=== PATIENT | female | born 1930 | race Caucasian/White ===

== ENCOUNTER 2017-06-01 23:26 | Inpatient (IN) | payer MEDICARE, OTHER ==
[~2017-06-01] VITALS: Ht 167.6 cm; Wt 63.3 kg
[~2017-06-01 23:26] MED LIST: AMARYL4 MG PO; ATORVASTATIN CA80 MG PO; BACTROBAN22 GM TP; CELEXA20 MG PO; CITALOPRAM HBR20 MG; CITALOPRAM HBR20 MG PO; CLOPIDOGREL75 MG PO; COUMADIN4 MG PO; DEMADEX10 MG PO; FENOFIBRATE160 MG PO; FERROUS SULFAT325 MG PO; FOLIC ACID0.4 MG PO; GLIPIZIDE10 MG PO; GLIPIZIDE5 MG PO; GLYBURIDE2.5 MG PO; HYDRALAZINE HCL25 MG PO; HYDROCODON-ACE1 EA10 PO; ISOSORBIDE DINI10 MG PO; ISOSORBIDE DINI20 MG PO; ISOSORBIDE MONO30 MG PO; KLOR-CON 1010 MEQ PO; LASIX40 MG PO; LEVOXYL125 MCG PO; LISINOPRIL20 MG PO; MAG-OXIDE400 MG PO; MAGNESIUM400 M1 PO; METOPROLOL TART50 MG PO; MIRTAZAPINE15 MG PO; MUPIROCIN15 GM TP; NITROGLYCERIN0.4 MG SL; PANTOPRAZOLE SO40 MG PO; POTASSIUM CHLO10 ME2 PO; POTASSIUM CHLO10 MEQ PO; PROTONIX40 MG PO; SERTRALINE HCL50 MG PO; SIMVASTATIN40 MG PO; TRIAMCINOLONE A15 G1 TOP; VITAMIN D-32000 UNI1 PO; WARFARIN SODIUM1 MG PO; WARFARIN SODIUM6 MG PO
[2017-06-01] MEDS ORDERED: AMLODIPINE BESYL5 MG PO (23:44)
[2017-06-01] MEDS ORDERED: METOPROLOL SUC100 MG PO (23:49)
[2017-06-01] MEDS ORDERED: TORSEMIDE20 MG PO (23:51)
--- OUTSIDE RECORDS SUMMARY | 2017-06-02 01:09 | XMS ---
Demographics + + + | Address | [address] | | | [address] | | | [place] [address] | + + + | Preferred Language | Unknown | + + + | Marital Status | Unknown | + + + | Sikhism Affiliation | Unknown | + + + | Race | Unknown | + + + | Ethnic Group | Unknown | + + + Author + + + | Author | [facility] | + + + | Organization | [facility] | + + + | Address | 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 | | | | | | | | blood loss | | | | | | +---------+ + + +--------+ + + | 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 | | | diabetes | | | | | [address] | | | mellitus | | | | | | | | with | | | | | | | | hyperglyce | | | | | | | | carmen | | | | | | +---------+ + + +--------+ + + | Problem | Murmur | 785.2 | | | Active | 345702881 | +---------+ + + +--------+ + + | Problem | CKD | N18.3 | | | Active | 989476739 | | | (chronic | | | | | | | | kidney | | | | | | | | disease), | | | | | | | | stage III | | | | | | +---------+ + + +--------+ + + | Problem | Dysthymia | F34.1 | | | Active | 56609933 | +---------+ + + +--------+ + + | Problem | 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.9 | | | Active | 011641936 | | | hypothyroi | | | | | | | | dism | | | | | | +---------+ + + +--------+ + + | Problem | Angina at | | I20.8 | | Active | 51513136 | | | rest | | | | | | +---------+ + + +--------+ + + | Problem | 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 | | Active | 57515945 | | | (arteriosc | | | | | | | | lerotic | | | | | | | | heart | | | | | | | | disease) | | | | | | +---------+ + + +--------+ + + | Problem | Chronic | | I48.2 | | Active | 903474793 | | | atrial | | | | | | | | fibrillati | | | | | | | | on | | | | | | +---------+ + + +--------+ + + | Problem | Chronic | | Z79.01 | | Active | 301589580 | | | anticoagul | | | | | | | | ation | | | | | | +---------+ + + +--------+ + + | Problem | 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 | | Active | 756608691 | | | vascular | | | | | | | | disease | | | | | | +---------+ + + +--------+ + + | Problem | Hypertensi | I11.9 | | | Active | 24635175 | | | ve | | | | | | | | arterioscl | | | | | | | | erotic | | | | | | | | cardiovasc | | | | | | | | ular | | | | | | | | disease | | | | | | +---------+ + + +--------+ + + ALLERGIES + + + + +---------+ | Substance | Reaction | Event Type | Date | Status | + + + + +---------+ | N.K.D.A. | Unknown | Non Drug | Mar, | Unknown | | | | Allergy | | | + + + + +---------+ SOCIAL HISTORY No smoking Hx information available PLAN OF CARE + +---------+ | Activity | Details | + +---------+ +---+ | | +---+ + + + | Follow Up | 1 Week Reason:null | + + + VITAL SIGNS + + + + | Height | 66 in | 2017-04-11 | + + + + | Weight | 141.8 lbs | 2017-04-11 | + + + + | BMI | 22.88 kg/m2 | 2017-04-11 | + + + + | Temperature | 97.9 degrees Fahrenheit | 2017-04-11 | + + + + | Heart Rate | 54 /min | 2017-04-11 | + + + + | Blood pressure systolic | 159 mm Hg | 2017-04-11 | + + + + | Blood pressure diastolic | 54 mm Hg | 2017-04-11 | + + + + MEDICATIONS + + + + + + + +--------+ | Medicati | Instruct | Dosage | Frequenc | Start | End Date | Duration | Status | | on | ions | | y | Date | | | | + + + + + + + +--------+ | Triamcin | External | 1 | 12h | 30 May, | | 30 days | Active | | olone | ly Twice | applicat | | 2017 | | | | | Acetonid | a day | ion to | | | | | | | e 0.1 % | | affected | | | | | | | | | area | | | | | | + + + + + + + +--------+ | Folic | Orally | 1 tablet | 24h | | | | Active | | Acid 400 | Once a | | | | | | | | MCG | day | | | | | | | + + + + + + + +--------+ | Levoxyl | Orally | 1 tablet | 24h | | | 90 days | Active | | 125 MCG | Once a | every | | | | | | | | day | morning | | | | | | | | | on an | | | | | | | | | empty | | | | | | | | | stomach | | | | | | + + + + + + + +--------+ | Atorvast | Orally | 1 tablet | | | | | Active | | atin | Once a | | | | | | | | Calcium | day qhs | | | | | | | | 80 MG | | | | | | | | + + + + + + + +--------+ | Glimepir | Orally | 1 tablet | 24h | | | | Active | | claude 4 MG | Once a | with | | | | | | | | day | breakfas | | | | | | | | | t or the | | | | | | | | | first | | | | | | | | | main | | | | | | | | | meal of | | | | | | | | | the day | | | | | | + + + + + + + +--------+ | Pantopra | Orally | 1 tablet | 24h | | | 90 days | Active | | zole | Once a | | | | | | | | Sodium | day | | | | | | | | 40 MG | | | | | | | | + + + + + + + +--------+ | Lisinopr | Orally | 1 tablet | 24h | | | | Active | | il 20 MG | Once a | | | | | | | | | day | | | | | | | + + + + + + + +--------+ | Hydrocod | Orally | 1 tablet | 6h | | | | Active | | one-Acet | every 6 | as | | | | | | | aminophe | hrs | needed | | | | | | | n 5-325 | | | | | | | | | MG | | | | | | | | + + + + + + + +--------+ | Clopidog | Orally | 1 tablet | 24h | | | | Active | | rel | Once a | | | | | | | | Bisulfat | day | | | | | | | | e 75 MG | | | | | | | | + + + + + + + +--------+ | Potassiu | orally | 1 tablet | 12h | | | 90 days | Active | | m | twice a | | | | | | | | Chloride | day | | | | | | | | 10 | | | | | | | | + + + + + + + +--------+ | Vitamin | Orally | 1 | 24h | | | | Active | | D3 2000 | Once a | capsule | | | | | | | UNIT | day | | | | | | | + + + + + + + +--------+ | Magnesiu | Orally | 1 tab(s) | 24h | | | | Active | | m 250 MG | daily | | | | | | | + + + + + + + +--------+ | Amlodipi | Orally | 1 tablet | | 13 Ryan, | | 30 | Active | | ne | Once a | | | 2017 | | day(s) | | | Besylate | day in | | | | | | | | 5 MG | PM | | | | | | | + + + + + + + +--------+ | Mirtazap | Orally | 1 tablet | 24h | | | 90 days | Active | | ine 15 | Once a | before | | | | | | | MG | day | bedtime | | | | | | | | | in the | | | | | | | | | evening | | | | | | + + + + + + + +--------+ | Ferrous | Orally | 1 tablet | 12h | | | | Active | | Sulfate | Twice a | | | | | | | | 325 (65 | day | | | | | | | | Fe) MG | | | | | | | | + + + + + + + +--------+ | Isosorbi | Orally | 1 tablet | 8h | | | | Active | | de | three | | | | | | | | Dinitrat | times a | | | | | | | | e 10 MG | day | | | | | | | + + + + + + + +--------+ | Torsemid | Orally | 1 tablet | 24h | | | | Active | | e 10 MG | Once a | | | | | | | | | day | | | | | | | + + + + + + + +--------+ | Metoprol | Orally | 1 tablet | 12h | | | | Active | | ol | Twice a | | | | | | | | Tartrate | day | | | | | | | | 50 MG | | | | | | | | + + + + + + + +--------+ | Nitrogly | | | | | | | Active | | cerin | | | | | | | | | 0.4 MG | | | | | | | | + + + + + + + +--------+ RESULTS No Results PROCEDURES + + + + + | Procedure | Date Ordered | Related Diagnosis | Body Site | + + + + + | Office Visit, Est | April 11, 2017 | | | | Pt., Level 3 | | | | + + + + + IMMUNIZATIONS No Known Immunizations"
--- OUTSIDE RECORDS SUMMARY | 2017-06-02 01:09 | XMS ---
Demographics + + + | Address | [address] | | | [address] | | | [place] [address] | + + + | Preferred Language | Unknown | + + + | Marital Status | Unknown | + + + | Cheondoism Affiliation | Unknown | + + + | Race | Unknown | + + + | Ethnic Group | Unknown | + + + Author + + + | Author | [facility] | + + + | Organization | [facility] | + + + | Address | 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 | | | Active | 123695726 | | | deficiency | | | [...] | E11.65 | | | Active | 8449913733 | | | diabetes | | | | | [address] | | | mellitus | | | | | | | | with | | | | | | | | hyperglyce | | | | | | | | carmen | | | | | | +---------+ + + +--------+ + + | Problem | Murmur | 785.2 | | | Active | 844721342 | +---------+ + + +--------+ + + | Problem | CKD | N18.3 | | | Active | 306621623 | | | (chronic | | | | | | | | kidney | | | | | | | | disease), | | | | | | | | stage III | | | | | | +---------+ + + +--------+ + + | Problem | Dysthymia | F34.1 | | | Active | 46033479 | +---------+ + + +--------+ + + | Problem | 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.9 | | | Active | 099779770 | | | hypothyroi | | | | | | | | dism | | | | | | +---------+ + + +--------+ + + | Problem | Angina at | | I20.8 | | Active | 35861732 | | | rest | | | | | | +---------+ + + +--------+ + + | Problem | 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 | | Active | 93655391 | | | (arteriosc | | | | | | | | lerotic | | | | | | | | heart | | | | | | | | disease) | | | | | | +---------+ + + +--------+ + + | Problem | Chronic | | I48.2 | | Active | 040248098 | | | atrial | | | | | | | | fibrillati | | | | | | | | on | | | | | | +---------+ + + +--------+ + + | Problem | Chronic | | Z79.01 | | Active | 126152788 | | | anticoagul | | | | | | | | ation | | | | | | +---------+ + + +--------+ + + | Problem | 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 | | Active | 743536969 | | | vascular | | | | | | | | disease | | | | | | +---------+ + + +--------+ + + | Problem | Hypertensi | I11.9 | | | Active | 75412119 | | | ve | | | | | | | | arterioscl | | | | | | | | erotic | | | | | | | | cardiovasc | | | | | | | | ular | | | | | | | | disease | | | | | | +---------+ + + +--------+ + + ALLERGIES Unknown Allergies SOCIAL HISTORY No smoking Hx information available PLAN OF CARE VITAL SIGNS MEDICATIONS Unknown Medications RESULTS No Results PROCEDURES No Known procedures IMMUNIZATIONS No Known Immunizations"
--- OUTSIDE RECORDS SUMMARY | 2017-06-02 01:09 | XMS ---
Demographics + + + | Address | [address] | | | [address] | | | [place] [address] | + + + | Preferred Language | Unknown | + + + | Marital Status | Unknown | + + + | Pentecostalism Affiliation | Unknown | + + + | Race | Unknown | + + + | Ethnic Group | Unknown | + + + Author + + + | Author | [facility] | + + + | Organization | [facility] | + + + | Address | 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 | | | Active | 131545423 | | | deficiency | | | [...] | E11.65 | | | Active | 9732537688 | | | diabetes | | | | | [address] | | | mellitus | | | | | | | | with | | | | | | | | hyperglyce | | | | | | | | carmen | | | | | | +---------+ + + +--------+ + + | Problem | Murmur | 785.2 | | | Active | 250057176 | +---------+ + + +--------+ + + | Problem | CKD | N18.3 | | | Active | 102709070 | | | (chronic | | | | | | | | kidney | | | | | | | | disease), | | | | | | | | stage III | | | | | | +---------+ + + +--------+ + + | Problem | Dysthymia | F34.1 | | | Active | 09782054 | +---------+ + + +--------+ + + | Problem | 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.9 | | | Active | 203338983 | | | hypothyroi | | | | | | | | dism | | | | | | +---------+ + + +--------+ + + | Problem | Angina at | | I20.8 | | Active | 60523651 | | | rest | | | | | | +---------+ + + +--------+ + + | Problem | 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 | | Active | 17787856 | | | (arteriosc | | | | | | | | lerotic | | | | | | | | heart | | | | | | | | disease) | | | | | | +---------+ + + +--------+ + + | Problem | Chronic | | I48.2 | | Active | 820692392 | | | atrial | | | | | | | | fibrillati | | | | | | | | on | | | | | | +---------+ + + +--------+ + + | Problem | Chronic | | Z79.01 | | Active | 343879069 | | | anticoagul | | | | | | | | ation | | | | | | +---------+ + + +--------+ + + | Problem | 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 | | Active | 514404754 | | | vascular | | | | | | | | disease | | | | | | +---------+ + + +--------+ + + | Problem | Hypertensi | I11.9 | | | Active | 52350944 | | | ve | | | [...] + + + | Follow Up | prn Reason:null | + + + VITAL SIGNS + + + + | Height | 66 in | 2017-04-18 | + + + + | Weight | 142.2 lbs | 2017-04-18 | + + + + | BMI | 22.95 kg/m2 | 2017-04-18 | + + + + | Heart Rate | 64 /min | 2017-04-18 | + + + + | Blood pressure systolic | 177 mm Hg | 2017-04-18 | + + + + | Blood pressure diastolic | 63 mm Hg | 2017-04-18 | + + + + MEDICATIONS + [...] | 1 tablet | | | | 30 | Active | | ne | Once a | | | | | day(s) | | | Besylate [...] | | | Active | | m | twice [...] + + + + + +--------+ | Colace | Orally | 1 | 24h | Mar, | 20 Apr, | 30 | Active | | 100 MG | Once a | capsule | | 2016 | 2016 | day(s) | | | | day | as | | | | | | | | | needed | | | | | | + + + + + + + +--------+ RESULTS No Results PROCEDURES + + + + + | Procedure | Date Ordered | Related Diagnosis | Body Site | + + + + + | Office Visit, Est | April 18, 2017 | | | | Pt., Level 3 | | | | + + + + + IMMUNIZATIONS No Known Immunizations"
--- NOTE | 2017-06-02 02:56 | NUR ---
DR. VILLARREAL NOTIFIED OF PT'S ELEVATED BP: 191/74. NO NEW ORDERS RECEIVED AT THIS TIME.
--- NOTE | 2017-06-02 03:17 | NUR ---
PATIENT ARRIVED VIA STRETCHER AROUND 0245. PATIENT SLID ACROSS TO HOSPITAL BED ON HER OWN. PATIENTS INTAKE ASSESMENT COMPLETED AND RECORDED. PATIENT DENIES ANY PAIN OR NAUSEA AT THIS TIME. PATIENT PLACED ON TELE #9 PATIENT HAS AN IRREGULAR HR. PATIENTS BLOOD PRESSURE WAS ALSO ELEVATED. PLACED CALL TO HOSPITALIST. NO NEW ORDERS AT THIS TIME. WILL CONTINUE TO MONITOR. PATIENT ASSISTED TO THE RESTROOM. PATIENT IS A SBA W/FWW. PATIENT TOLERATES AMBUALTION WELL AND IS STEADY ON HER FEET. PATIENT HAS EQUAL STRENGHT BILATERALLY IN ALL 4 EXT. PATIENT DOES HAVE A NOTICABLE FACIAL DROOP IN CORNER OF LEFT MOUTH. PATIENT ORIENTED TO ROOM AND FLOOR. PATIENT DENIES ANY NEEDS AT THIS TIME. CALL LIGHT IS WITHIN REACH.
--- NOTE | 2017-06-02 05:30 | NUR ---
PATIENT ARRIVED AROUND 0245. PATIENT IS ON TELE #9 AND HER RHYTHM IS IRREGULAR, HR IN THE 50'S. PATIENT IS ON A REG DIET. PATIENT IS A SBA W/FWW AND IS STEADY ON HER FEET. PATIENT IS AAO X3 AND USES CALL LIGHT APPROPRIATELY. PATIENT DOES HAVE A SLIGHT FACIAL DROOP ON THE LEFT SIDE. PATIENT DOES HAVE SLIGHT INCONTINENCE ATTEND IN PLACE.
--- NOTE | 2017-06-02 06:13 | NUR ---
PATIENT ASSISTED TO THE RESTROOM. PATIENT IS A SBA W/FWW AND IS STEADY ON HER FEET. PATIENT IS BACK IN BED RESTING AND DENIES ANY NEEDS AT THIS TIME. CALL STEWART SINGH.
--- NOTE | 2017-06-02 07:10 | NUR ---
RECIVED BEDSIDE REPORT FROM BLU PERES. PT SLEEPING, BREATHING EVEN AND UNLABORED.
--- NOTE | 2017-06-02 08:10 | NUR ---
PT UP IN CHAIR, BREAKFAST IS ORDERED. PT IS AWAKE AND ALERT. DR VILLARREAL AND MED STUDENT ROUNDED WELL. DR. VILLARREAL WILL MAKE INPATIENT.
--- NOTE | 2017-06-02 10:29 | NUR ---
ON TELE, HR DIPPED TO 47. PT HAD FALLEN ASLEEP WHEN RN CHECKED ON HER. HR WENT TO 79 WHEN AWAKE. DIPPED DOWN TO LOW-MID 50S WHEN SLEEPING.
--- NOTE | 2017-06-02 11:08 | NUR ---
PT SITTING IN CHAIR WITH DAUGHTER IN LAW BY HER SIDE. PT IS ALERT AND MOSTLY ORIENTED AND EXPRESSED GREAT CONCERN OVER WHAT SHE FELT SHE EXPERIENCED LAST NIGHT. SHE ACKNOWLEDGED A STROKE, AND SAID SHE FEELS THAT SHE DOESNOT WANT ANYTHING LIKE THAT AGAIN. PT JOKED AND SEEMED TO BE DEALING APPROPRIATELY. PT REQUESTED PRAYER, WILL FOLLOW NEEDED
--- NOTE | 2017-06-02 12:25 | NUR ---
MED REC COMPLETE WITH SAFEWAY REFILL HISTORY.
--- NOTE | 2017-06-02 13:17 | NUR ---
PT SLEEPING, HEART RATE DIPS TO 50'S WHILE SLEEPING. PT REPORTS NO HEADACHE, DIZZINESS. DENIES RETURN OF SYMPTOMS. PT ATE 80% OF LUNCH. FAMILY IN ROOM.
--- NOTE | 2017-06-02 15:41 | NUR ---
ASSISTED PT TO BATHROOM WITH FWW. PT STEADY ON HER FEET. NO LIGHTHEADEDNESS, DIZZINESS, HEADACHE, OR WEAKNESS NOTED OR REPORTED.
--- NOTE | 2017-06-02 18:47 | NUR ---
TIA SYMPTOMS RESOLVED. PT COMPLAINING OF HEADACHE IN LATE EVENING. SBA WITH FWW. VOIDING WELL, BM THIS SHIFT. SALINE LOCKED IV. PT HAS CHRONIC LEFT SIDE FACIAL DROOP. A&o X4.
--- NOTE | 2017-06-02 19:27 | NUR ---
SPOKE WITH DR GOLDEN RE: INCREASING BLOOD PRESSURE AFTER GIVING AMLODIPINE AND LISINPRIL. CURRENT BP 206/85. MD AWARE, ADVISED TO RECHECK BP IN ONE HOUR. NURSE ORDER ENTERED.
--- NOTE | 2017-06-02 21:00 | NUR ---
PT AWAKE AND VISITING WTIH HER GRANDDAUGHTER. PLEASANT AND COOPERATIVE. BP AT 2034 WAS 197/84, DR. GOLDEN NOTIFIED IN PERSON HERE AT M/S FLOOR. PT ALERT AND ORIENTATED.
--- NOTE | 2017-06-02 21:33 | EKG ---
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
--- NOTE | 2017-06-02 22:30 | NUR ---
PT WITH EYES CLOSED, RESP EVEN AND UNLABORED. TEL SHOWING H/R IN THE 50'S, AND IRREGULAR.
--- NOTE | 2017-06-02 23:45 | NUR ---
EYES CLOSED. PT RESTING. USED CALL LIGHT EARLIER AFTER HER SON CALLED. SON WANTED RN TO CONTACT HIM, WHICH WAS DONE AT 2320, SON HAD A COMPLAINT THAT DID NOT INVOLVE THIS PATIENT. THIS RN REPORTED COMPLAINT TO MULTI SPINDLE OPERATOR, PT SON TRIED TO CALL HOSPITAL TO REACH HIS MOM FOR OVER "1 HOUR AND 45 MIN" BUT NO ONE WOULD ANSWER THE PHONE AT THE SWITCHBOARD. HE FOUND THE NUMBER TO HIS MOM ROOM DIRECTLY VIA CALLER ID, AND CALLED HER DIRECTLY. HE WAS EXTREMELY UPSET BUT REASSURED HIM THAT THIS NURSE WOULD FIND OUT WHY. DID THAT AND RETURNED HIS CALL TO LET HIM KNOW WHY THE PHONE WENT UNANSWERED. HE THANKED THIS NURSE FOR CALLING HIM BACK WITH THE REASON.
--- NOTE | 2017-06-03 01:32 | NUR ---
PT WITH EYES CLOSED, RESP EVEN AND UNLABORED. TELE WITH HR AT 52, IRREGULAR.
--- NOTE | 2017-06-03 02:09 | NUR ---
PT UP TO BATHROOM AT 0200, USED CALL LIGHT. STEADY ON FEET DURING AMBULATION. STATED SHE WAS VERY HAPPY THAT HER HEADACHE WAS GONE. OFFERED AND ACCEPTED WATER. BP 190/73, WAS REPORTED TO DR. GOLDEN, WHO STATED HE WOULD REVEIW IN THE AM DURING ROUNDS.
--- NOTE | 2017-06-03 03:30 | NUR ---
PT WITH EYES CLOSED, RESP EVEN AND UNLABORED
--- NOTE | 2017-06-03 05:35 | NUR ---
PT IN BED, ON HER BACK, RESP EVEN AND UNLABORED. TELE WITH HR IN THE 60'S, IRREGULAR
--- NOTE | 2017-06-03 06:14 | NUR ---
PT SLEPT MOST OF THE NIGHT, GETTING UP TO THE BATHROOM X 1 SINCE 0200. FACIAL DROOP NOT NEW, PER HISTORY. SPEECH IS MOSTLY CLEAR, D/T HER FACIAL DROOP. AAO X3. TELE WITH HR IN THE 50-60'S, IRREGULAR. ONE PERSON TRANSFER, STEADY ON FEET.
--- NOTE | 2017-06-03 08:15 | NUR ---
PT AWAKE IN BED, ALERT AND ORIENTED. NEUROCHECK UNREMARKABLE, EXCEPT FOR OLD LEFT SIDED FACIAL DROOP. DENIES PAIN, NAUSEA OR OTHER CONCERNS AT THIS TIME. DAUGHTER AT BEDSIDE VISITING WITH PT. TELE ON, HR IRREGULAR AND 56. CALL LIGHT WITHIN REACH, CALLS APPROPRIATELY.
--- NOTE | 2017-06-03 11:24 | NUR ---
PT SHOWERED AND IS NOW SITTING UP IN CHAIR. PT ASKED FOR MORE ICE WATER
--- NOTE | 2017-06-03 11:40 | NUR ---
PT SITTING UP IN CHAIR AWAKE, VISITING WITH FAMILY. TELE ON, HR 67. NEURO CHECK UNCHANGED FROM THIS AM. PT DENIES NEEDS OR CONCERNS AT THIS TIME. CALL LIGHT WITHIN REACH.
--- NOTE | 2017-06-03 14:15 | NUR ---
PT SITTING UP IN RECLINER VISITING WITH FAMILY. DENIES NEEDS OR CONCERNS AT THIS TIME. CALL LIGHT WITHIN REACH.
--- NOTE | 2017-06-03 17:44 | NUR ---
PT CALLED FOR ASSISTANCE TO RESTROOM. SBA WITH FWW. AMB TO RECLINER. SITTING UP EATING DINNER INDEPENDENTLY. CALL LIGHT WITHIN REACH.
--- NOTE | 2017-06-03 18:47 | NUR ---
PT IS SITTING UP IN CHAIR WATHCING TV. PT DID NOT NEED ANYTHING ELSE AT THE MOMENT
--- NOTE | 2017-06-03 19:05 | NUR ---
BEDSIDE REPORT RECEIVED FROM OFFGOING NURSE. PT LYING IN BED WITH EYES CLOSED. APPEARS TO BE SLEEPING. CALL LIGHT WITHIN REACH.
--- NOTE | 2017-06-03 20:00 | NUR ---
PT ASSESSMENT COMPLETED. PT'S SON AT BEDSIDE. PT DENIES PAIN OR NAUSEA. L FACIAL DROOP PRESENT PER PT'S BASELINE. NUERO WNL. PT DENIES NEEDS AT THIS TIME. CALL LIGHT WITHIN REACH.
--- NOTE | 2017-06-03 22:45 | NUR ---
PT'S LOWER DENTURE REMOVED AND PLACED IN EFFERDENT WATER. PT DOES NOT WISH TO TAKE HER TOP DENTURE OUT AT THIS TIME. STATES "I CANNOT STAND TO HAVE IT OUT." PT DENIES OTHER NEEDS, STATES "I AM GOING TO SLEEP NOW". REINFORCED CALL LIGHT USE FOR FURTHER NEEDS, PT STATES UNDERSTANDING. CALL LIGHT WITHIN REACH.
--- NOTE | 2017-06-04 00:44 | NUR ---
pt up to use the bathroom with 1pa, tolerated well. pt assisted back to bed. denies further needs. call light within reach.
--- NOTE | 2017-06-04 02:30 | NUR ---
PT RESTING IN BED WITH EYES CLOSED. RESPIRATIONS ARE EVEN AND UNLABORED. PT APPEARS TO BE SLEEPING. CALL LIGHT WITHIN REACH.
--- NOTE | 2017-06-04 04:00 | NUR ---
ASSISTED PATIENT TO THE BATHROOM. PATIENT IS UP IN THE CHAIR. CALL LIGHT IS WITHIN REACH.
--- NOTE | 2017-06-04 05:07 | NUR ---
PT RESTED WELL THROUGHOUT THE NIGHT. NO REPORTS OF PAIN OR NAUSEA. NUERO ASSESSMENT UNCHANGED, FACIAL DROOP ON L SIDE IS BASELINE PER PT. A&OX3. TELE # 9, HR IRREGULAR. SBA WITH FWW. IV SL. UO QS.
--- NOTE | 2017-06-04 07:20 | NUR ---
REPORT RECIEVED FROM [facility]. PT AWAKE AND SITTING UP IN CHAIR AWAITING BREAKFAST.
--- NOTE | 2017-06-04 08:05 | NUR ---
PT. SITTING IN CHAIR TALKING WITH VISITORS. COMPLAINING OF PAIN ON RIGHT HEEL, PUT PILLOW UNDER LEGS. TOLERATED BREAKFAST WELL.
--- NOTE | 2017-06-04 08:17 | NUR ---
PT SITTING UP IN CHAIR EATING BREAKFAST. ADMINSTERED MORNING MEDS AND ASSESSED VITALS. PT DENIES CONCERNS. DOES REPORT SOME PAIN IN RIGHT HEEL. NO CARRANZA SHOWING ON SKIN. PLACED ON PILLOW. FAMILY IN ROOM. HOPES TO GO HOME TODAY.
--- NOTE | 2017-06-04 09:31 | NUR ---
PT. AMBULATED IN MARTINES WITH FWW, TOLERATED WELL, HR UP TO 101, NOTIFIED MD, MAY DISCHARGE TODAY.
--- NOTE | 2017-06-04 10:32 | NUR ---
PT UP TO CHAIR AFTER GOING TO RESTROOM. ASSESSED VITALS FOR NEW ORDER OF METOPOROL. REFILLED WATER. PT DENIES CONCERNS.
--- NOTE | 2017-06-04 11:19 | NUR ---
PT. AMBULATED IN MARTINES. PT. HAD NO COMPLAINTS OF SOB OR WEAKNESS. HR UP TO 102.
--- NOTE | 2017-06-04 13:00 | NUR ---
PT. UP TO BATHROOM WITH FAMILY MEMBER AT BEDSIDE. PT. DENIES PAIN AND HAS NO NEEDS AT THIS TIME.
--- NOTE | 2017-06-04 15:26 | NUR ---
SCDS APPLIED TO PATIENT AND IV LINE SALINE LOCKED. PT. HAS NO NEEDS AT THIS TIME.
--- NOTE | 2017-06-04 18:23 | NUR ---
PT. TAKEN TO BATHROOM AND WATER WAS REFILLED. NO FURTHER REQUESTS AT THIS TIME.
--- NOTE | 2017-06-04 18:39 | NUR ---
PT. SAT IN CHAIR THROUGHOUT MORNING. NO COMPLAINTS OF PAIN OR NAUSEA. VITAL SIGNS STABLE. PT.'S HR WOULD GO INTO LOW 100'S WHEN AMBULATING, BUT WAS ASYMPTOMATIC. PT. WILL HAVE ECHO TOMORROW WITH POSSIBLE DISCHARGE TOMORROW. NO ACUTE CHANGES FROM BEGINNING OF SHIFT ASSESSMENT.
--- NOTE | 2017-06-04 19:15 | NUR ---
BEDSIDE REPORT RECEIVED FROM OFFGOING RN'S. PT SITTING UP IN BED. DENIES NEEDS AT THIS TIME. CALL LIGHT WITHIN REACH.
--- NOTE | 2017-06-04 22:54 | NUR ---
PT ASSESSMENT COMPLETED. VS WNL FOR MED ADMINISTRATION. L FACIAL DROOP CONTINUES PER BASELINE. PT DENIES NUMBNESS OR TINGLING TO EXTREMITIES. REPORTS SORENESS TO HEEL, STATES THAT SHE BELIEVES IT IS FROM "NUEROPATHIES". PT UP TO USE THE BATHROOM WITH ASSEMBLER FLEXIBLE LEADS ASSITANCE AND FWW, GOWN CHANGED DUE TO BEING SOILED, PT ASSISTED BACK TO BED. TOLERATED WELL. PT RECEIVED PHONE CALL, DENIES FURTHER NEEDS. TALKING ON THE PHONE UPON EXITING THE ROOM, CALL LIGHT WITHIN REACH.
--- NOTE | 2017-06-05 00:10 | NUR ---
PT UP TO USE THE BATHROOM WITH FWW AND SBA. PT REPORTS HAVING DIFFICULT TIME SLEEPING. PILLOW PROVIDED FOR UNDER PT'S LEGS WELL SLEEPING MASK. PT APPRECIATIVE, DENIES OTHER NEEDS. CALL LIGHT IN LAP.
--- NOTE | 2017-06-05 02:47 | NUR ---
PT ASSESSMENT COMPLETE; UNCHANGED. PT DENIES PAIN OR NAUSEA. PT UP TO USE THE BATHROOM WITH FWW AND SBA. PT TOLERATED WELL. DENIES FURTHER NEEDS. CALL LIGHT WITHIN REACH.
--- NOTE | 2017-06-05 04:47 | NUR ---
PT RESTING THROUGHOUT THE NIGHT. UP AND DOWN TO BATHROOM. PT DENIES PAIN OR NAUSEA THROUGHOUT SHIFT. NO CHANGES TO NEURO ASSESSMENT, L FACIAL DROOP PER BASELINE. IV SL. SBA WITH FWW. ADA DIET. ACCUCHECKS. POSSIBLE DC TODAY.
--- NOTE | 2017-06-05 07:36 | NUR ---
RECEIVED REPORT FROM KRISTIAN HURT AT BEDSIDE TODAY. PT AWAKE. ULTRASOUND TECHS IN ROOM TO DO CAROTID US AND ECHO TODAY. TELE [address] HR 77. HOPES TO GO HOME TODAY.
--- NOTE | 2017-06-05 09:01 | NUR ---
CUSTOMER SERVICE TRAINER IN TO DO ECHOCARDIOGRAM NOW.
[2017-06-05] MEDS ORDERED: AMLODIPINE BESYL5 MG PO (09:49)
[2017-06-05] MEDS ORDERED: METOPROLOL SUCC25 MG PO (09:49)
--- NOTE | 2017-06-05 12:27 | NUR ---
PT DRESSED, WITH PCG PRESENT. SHE IS WAITING FOR DC. SHE SMILED AND WELCOMED ME IN. SHE TOLD ME SHE WOULD TRY TO BEHAVE, WITH A SMILE, AND THANKED ME FOR COMING IN.
== END 2017-06-05 12:25 | disposition home or self-care (01) | DRG 309 ==
LOC: ED 23:26 → MS 23:28 → ED 06-02 02:12 → MS 06-02 02:12
PROVIDERS: ADMIT Internal Medicine
DX: I48.2 Chronic atrial fibrillation (principal); G45.9 Transient cerebral ischemic attack, unspecified; I50.22 Chronic systolic (congestive) heart failure; K92.2 Gastrointestinal hemorrhage, unspecified; I11.0 Hypertensive heart disease with heart failure; E78.5 Hyperlipidemia, unspecified; E03.9 Hypothyroidism, unspecified; E55.9 Vitamin D deficiency, unspecified; E11.40 Type 2 diabetes mellitus with diabetic neuropathy, unspecified; I25.2 Old myocardial infarction; Z79.01 Long term (current) use of anticoagulants; Z79.84 Long term (current) use of oral hypoglycemic drugs
CPT/HCPCS: 36415; 70450; 71010; 80053; 80061; 84439; 84443; 84481; 85025; 93005; 93010; 93306; 93880

== ENCOUNTER 2017-09-20 10:15 | Inpatient (IN) | payer MEDICARE, OTHER ==
[~2017-09-20] VITALS: Ht 167.6 cm; Wt 67.0 kg
[~2017-09-20 10:15] MED LIST changes: +AMLODIPINE BESYL5 MG PO; +METOPROLOL SUC100 MG PO; +METOPROLOL SUCC25 MG PO; +TORSEMIDE20 MG PO
[2017-09-20] MEDS ORDERED: IRON325 M1 PO (10:29)
[2017-09-20] MEDS ORDERED: ISOSORBIDE DINI20 MG PO (10:30)
[2017-09-20] MEDS ORDERED: COLACE100 MG PO (10:32)
[2017-09-20] MEDS ORDERED: FOLIC ACID0.4 MG PO (10:33)
--- OUTSIDE RECORDS SUMMARY | 2017-09-20 11:24 | XMS ---
Demographics + + + | Address | [address] | | | [address] | | | [place] [address] | + + + | Preferred Language | Unknown | + + + | Marital Status | Unknown | + + + | Restorationism Affiliation | Unknown | + + + | Race | Unknown | + + + | Ethnic Group | Unknown | + + + Author + + + | Author | [facility] | + + + | Organization | [facility] | + + + | Address | 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 | | Active | 514734391 | | | hyperlipid | | | | | | | | emia | | | | | | +---------+ + + +--------+ + + | Problem | Iron | D50.0 | | | Active | 883857844 | | | deficiency | | | [...] | E11.65 | | | Active | 2870097905 | | | diabetes | | | | | [address] | | | mellitus | | | | | | | | with | | | | | | | | hyperglyce | | | | | | | | carmen | | | | | | +---------+ + + +--------+ + + | Problem | Murmur | 785.2 | | | Active | 592833689 | +---------+ + + +--------+ + + | Problem | CKD | N18.3 | | | Active | 619562572 | | | (chronic | | | | | | | | kidney | | | | | | | | disease), | | | | | | | | stage III | | | | | | +---------+ + + +--------+ + + | Problem | Dysthymia | F34.1 | | | Active | 01929483 | +---------+ + + +--------+ + + | Problem | 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.9 | | | Active | 765875787 | | | hypothyroi | | | | | | | | dism | | | | | | +---------+ + + +--------+ + + | Problem | Angina at | | I20.8 | | Active | 75016157 | | | rest | | | | | | +---------+ + + +--------+ + + | Problem | 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 | | Active | 58010420 | | | (arteriosc | | | | | | | | lerotic | | | | | | | | heart | | | | | | | | disease) | | | | | | +---------+ + + +--------+ + + | Problem | Chronic | | I48.2 | | Active | 050361864 | | | atrial | | | | | | | | fibrillati | | | | | | | | on | | | | | | +---------+ + + +--------+ + + | Problem | Chronic | | Z79.01 | | Active | 799744451 | | | anticoagul | | | | | | | | ation | | | | | | +---------+ + + +--------+ + + | Problem | 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 | | Active | 224597683 | | | vascular | | | | | | | | disease | | | | | | +---------+ + + +--------+ + + | Problem | Hypertensi | I11.9 | | | Active | 24961930 | | | ve | | | | | | | | arterioscl | | | | | | | | erotic | | | | | | | | cardiovasc | | | | | | | | ular | | | | | | | | disease | | | | | | +---------+ + + +--------+ + + ALLERGIES No Known Allergies SOCIAL HISTORY Never Assessed PLAN OF CARE + +---------+ | Activity | Details | + +---------+ +---+ | | +---+ + + + | Follow Up | prn Reason:null | + + + VITAL SIGNS + + + + | Height | 66 in | 2017-07-17 | + + + + | Weight | 145.0 lbs | 2017-07-17 | + + + + | BMI | 23.40 kg/m2 | 2017-07-17 | + + + + | Temperature | 98.3 degrees Fahrenheit | 2017-07-17 | + + + + | Heart Rate | 76 /min | 2017-07-17 | + + + + | Blood pressure systolic | 167 mm Hg | 2017-07-17 | + + + + | Blood pressure diastolic | 57 mm Hg | 2017-07-17 | + + + + MEDICATIONS + [...] | | | Active | | m 400 MG | daily | | | | [...] | | | Active | | e 20 MG | Once a | | [...] + + +--------+ RESULTS No Results PROCEDURES No Known procedures IMMUNIZATIONS No Known Immunizations MEDICAL (GENERAL) HISTORY + + + + | Type | Description | Date | + + + + | Medical History | Atrial Fibrillation on | | | | Chronic anticoagulation - | | | | pt stopped coumadin 10/2016 | | | | and electing not to go on | | | | it. 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 exercise regimen to | | | | improve LE arterial flow. | | | | angiographic evaluation if | | | | consistant exercise does | | | | not resolve her symptom. | | + + + + | Surgical History | Colonoscopy | 08/2012 | + + + + | Surgical History | EGD | 08/2012 | + + + + | Surgical History | Right femoral | 09/28/12 | | | thromboendarterectomy | | + + + + | Surgical History | Cataract surgery | 2013 | + + + + | Surgical History | starbismus surgery | 1957 | + + + + | Surgical History | Appendectomy | 1949 | + + + + | Surgical History | Hysterectomy with BSO | 1976 | + + + + | Surgical History | Mammogram | 2006 | + + + + | Hospitalization History | [facility] re: rectal bleeding | 12/01-12/03/16 | + + + + | Hospitalization History | [facility] re: chest pain | 02/21/17 | | | transfered to [facility] | | + + + + | Hospitalization History | [facility] re: chest pain | 02/21-02/23/17 | + + + + | Hospitalization History | [facility] re: chest pain | 04/08/17 | + + + + | Hospitalization History | [facility] re: facial droop | 06/02/17 | + + + +"
--- OUTSIDE RECORDS SUMMARY | 2017-09-20 11:24 | XMS ---
Demographics + + + | Address | [address] | | | [address] | | | [place] [address] | + + + | Preferred Language | Unknown | + + + | Marital Status | Unknown | + + + | Bahai Affiliation | Unknown | + + + | Race | Unknown | + + + | Ethnic Group | Unknown | + + + Author + + + | Author | [facility] | + + + | Organization | [facility] | + + + | Address | 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 | | Active | 453863789 | | | hyperlipid | | | | | | | | emia | | | | | | +---------+ + + +--------+ + + | Problem | Iron | D50.0 | | | Active | 043801360 | | | deficiency | | | [...] | E11.65 | | | Active | 5081051317 | | | diabetes | | | | | 98851 | | | mellitus | | | | | | | | with | | | | | | | | hyperglyce | | | | | | | | carmen | | | | | | +---------+ + + +--------+ + + | Problem | Murmur | 785.2 | | | Active | 235720249 | +---------+ + + +--------+ + + | Problem | CKD | N18.3 | | | Active | 547528818 | | | (chronic | | | | | | | | kidney | | | | | | | | disease), | | | | | | | | stage III | | | | | | +---------+ + + +--------+ + + | Problem | Dysthymia | F34.1 | | | Active | 61052283 | +---------+ + + +--------+ + + | Problem | 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.9 | | | Active | 620416814 | | | hypothyroi | | | | | | | | dism | | | | | | +---------+ + + +--------+ + + | Problem | Angina at | | I20.8 | | Active | 01277030 | | | rest | | | | | | +---------+ + + +--------+ + + | Problem | 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 | | Active | 49054611 | | | (arteriosc | | | | | | | | lerotic | | | | | | | | heart | | | | | | | | disease) | | | | | | +---------+ + + +--------+ + + | Problem | Chronic | | I48.2 | | Active | 378307599 | | | atrial | | | | | | | | fibrillati | | | | | | | | on | | | | | | +---------+ + + +--------+ + + | Problem | Chronic | | Z79.01 | | Active | 118030999 | | | anticoagul | | | | | | | | ation | | | | | | +---------+ + + +--------+ + + | Problem | 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 | | Active | 373721671 | | | vascular | | | | | | | | disease | | | | | | +---------+ + + +--------+ + + | Problem | Hypertensi | I11.9 | | | Active | 01535829 | | | ve | | | | | | | | arterioscl | | | | | | | | erotic | | | | | | | | cardiovasc | | | | | | | | ular | | | | | | | | disease | | | | | | +---------+ + + +--------+ + + ALLERGIES No Information SOCIAL HISTORY Never Assessed PLAN OF CARE VITAL SIGNS MEDICATIONS + + + + +--------+ + +--------+ | Medicati | Instruct | Dosage | Frequenc | Start | End Date | Duration | Status | | on | ions | | y | Date | | | | + + + + +--------+ + +--------+ | Clopidog | Orally | 1 tablet | 24h | | | 90 days | Active | | rel | Once a | | | | | | | | Bisulfat | day | | | | | | | | e 75 MG | | | | | | | | + + + + +--------+ + +--------+ RESULTS No Results PROCEDURES No [...] femoral arterial | | | | thrombosis 1996(L) 2011 | | + + + + | Medical History | | | + + + + | Medical History | Claudication - 01/25/17 | | | | [facility] | | | | surgeon: [...] | 02/21/17 | | | transfered to [facility] | | + + + + | Hospitalization History | [facility] re: chest pain | 02/21-02/23/17 | + + + + | Hospitalization History | [facility] re: chest pain | 04/08/17 | + + + + | Hospitalization History | [facility] re: facial droop | 06/02/17 | + + + +"
--- OUTSIDE RECORDS SUMMARY | 2017-09-20 11:24 | XMS ---
Demographics + + + | Address | [address] | | | [address] | | | [place] [address] | + + + | Preferred Language | Unknown | + + + | Marital Status | Unknown | + + + | Worship Affiliation | Unknown | + + + | Race | Unknown | + + + | Ethnic Group | Unknown | + + + Author + + + | Author | [facility] | + + + | Organization | [facility] | + + + | Address | 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 | | Active | 216159977 | | | hyperlipid | | | | | | | | emia | | | | | | +---------+ + + +--------+ + + | Problem | Iron | D50.0 | | | Active | 201745248 | | | deficiency | | | [...] | E11.65 | | | Active | 8862827820 | | | diabetes | | | | | [address] | | | mellitus | | | | | | | | with | | | | | | | | hyperglyce | | | | | | | | carmen | | | | | | +---------+ + + +--------+ + + | Problem | Murmur | 785.2 | | | Active | 347325053 | +---------+ + + +--------+ + + | Problem | CKD | N18.3 | | | Active | 011792247 | | | (chronic | | | | | | | | kidney | | | | | | | | disease), | | | | | | | | stage III | | | | | | +---------+ + + +--------+ + + | Problem | Dysthymia | F34.1 | | | Active | 72188376 | +---------+ + + +--------+ + + | Problem | 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.9 | | | Active | 710126992 | | | hypothyroi | | | | | | | | dism | | | | | | +---------+ + + +--------+ + + | Problem | Angina at | | I20.8 | | Active | 90369756 | | | rest | | | | | | +---------+ + + +--------+ + + | Problem | 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 | | Active | 35409357 | | | (arteriosc | | | | | | | | lerotic | | | | | | | | heart | | | | | | | | disease) | | | | | | +---------+ + + +--------+ + + | Problem | Chronic | | I48.2 | | Active | 773472556 | | | atrial | | | | | | | | fibrillati | | | | | | | | on | | | | | | +---------+ + + +--------+ + + | Problem | Chronic | | Z79.01 | | Active | 548576817 | | | anticoagul | | | | | | | | ation | | | | | | +---------+ + + +--------+ + + | Problem | 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 | | Active | 869809143 | | | vascular | | | | | | | | disease | | | | | | +---------+ + + +--------+ + + | Problem | Hypertensi | I11.9 | | | Active | 47551029 | | | ve | | | [...] N.K.D.A. | Unknown | Non Drug | May, | Unknown | | | | Allergy | | | + + + + +---------+ SOCIAL HISTORY No smoking Hx information available PLAN OF CARE + +---------+ | Activity | Details | + +---------+ +---+ | | +---+ + + + | Follow Up | 4 Months Reason:null | + + + VITAL SIGNS + + + + | Height | 66 in | 2017-06-12 | + + + + | Weight | 140.9 lbs | 2017-06-12 | + + + + | BMI | 22.74 kg/m2 | 2017-06-12 | + + + + | Temperature | 97.8 degrees Fahrenheit | 2017-06-12 | + + + + | Heart Rate | 69 /min | 2017-06-12 | + + + + | Blood pressure systolic | 149 mm Hg | 2017-06-12 | + + + + | Blood pressure diastolic | 63 mm Hg | 2017-06-12 | + + + + MEDICATIONS + + + + +--------+ + +--------+ | Medicati | Instruct | Dosage | Frequenc | Start | End Date | Duration | Status | | on | ions | | y | Date | | | | + + + + +--------+ + +--------+ | Magnesiu | Orally | 1 tab(s) | 24h | | | | Active | | m 250 MG | daily | | | | | | | + + + + +--------+ + +--------+ | Hydrocod | Orally | [...] + + + +--------+ + +--------+ | Glimepir | Orally | [...] + + + +--------+ + +--------+ | Vitamin | Orally | 1 | 24h | | | | Active | | D3 2000 | Once a | capsule | | | | | | | UNIT | day | | | | | | | + + + + +--------+ + +--------+ | Mirtazap | Orally | [...] + + + +--------+ + +--------+ | Torsemid | Orally | 1 tablet | 24h | | | | Active | | e 20 MG | Once a | | | | | | | | | day | | | | | | | + + + + +--------+ + +--------+ | Lisinopr | Orally | [...] + + + +--------+ + +--------+ | Folic | Orally | 1 tablet | 24h | | | | Active | | Acid 400 | Once a | | | | | | | | MCG | day | | | | | | | + + + + +--------+ + +--------+ | Nitrogly | | | | | | | Active | | cerin | | | | | | | | | 0.4 MG | | | | | | | | + + + + +--------+ + +--------+ | Pantopra | Orally | 1 tablet | 24h | | | 90 days | Active | | zole | Once a | | | | | | | | Sodium | day | | | | | | | | 40 MG | | | | | | | | + + + + +--------+ + +--------+ | Amlodipi | Orally | 1 tablet | | | | 30 | Active | | ne | Once a | | | | | day(s) | | | Besylate | day in | | | | | | | | 5 MG | PM | | | | | | | + + + + +--------+ + +--------+ | Atorvast | Orally | 1 tablet | | | | | Active | | atin | Once a | | | | | | | | Calcium | day qhs | | | | | | | | 80 MG | | | | | | | | + + + + +--------+ + +--------+ | Levoxyl | Orally | [...] + + + +--------+ + +--------+ | Metoprol | Orally | 1 tablet | 24h | | | | Active | | ol | Once a | | | | | | | | Succinat | day | | | | | | | | e ER 25 | | | | | | | | | MG | | | | | | | | + + + + +--------+ + +--------+ | Ferrous | Orally | 1 tablet | 12h | | | | Active | | Sulfate | Twice a | | | | | | | | 325 (65 | day | | | | | | | | Fe) MG | | | | | | | | + + + + +--------+ + +--------+ | Potassiu | orally | 1 tablet | 12h | | | | Active | | m | twice a | | | | | | | | Chloride | day | | | | | | | | 10 | | | | | | | | + + + + +--------+ + +--------+ RESULTS No Results PROCEDURES + + + + + | Procedure | Date Ordered | Related Diagnosis | Body Site | + + + + + | Moderate | Jun 12, 2017 | | | + + + + + IMMUNIZATIONS No Known Immunizations"
--- OUTSIDE RECORDS SUMMARY | 2017-09-20 11:24 | XMS ---
Demographics + + + | Address | [address] | | | [address] | | | [place] [address] | + + + | Preferred Language | Unknown | + + + | Marital Status | Unknown | + + + | Yazdanism Affiliation | Unknown | + + + | Race | Unknown | + + + | Ethnic Group | Unknown | + + + Author + + + | Author | [facility] | + + + | Organization | [facility] | + + + | Address | 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 | | Active | 316737885 | | | hyperlipid | | | | | | | | emia | | | | | | +---------+ + + +--------+ + + | Problem | Iron | D50.0 | | | Active | 192117470 | | | deficiency | | | [...] | E11.65 | | | Active | 5749249999 | | | diabetes | | | | | [address] | | | mellitus | | | | | | | | with | | | | | | | | hyperglyce | | | | | | | | carmen | | | | | | +---------+ + + +--------+ + + | Problem | Murmur | 785.2 | | | Active | 775624810 | +---------+ + + +--------+ + + | Problem | CKD | N18.3 | | | Active | 778885327 | | | (chronic | | | | | | | | kidney | | | | | | | | disease), | | | | | | | | stage III | | | | | | +---------+ + + +--------+ + + | Problem | Dysthymia | F34.1 | | | Active | 28096338 | +---------+ + + +--------+ + + | Problem | 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.9 | | | Active | 852309606 | | | hypothyroi | | | | | | | | dism | | | | | | +---------+ + + +--------+ + + | Problem | Angina at | | I20.8 | | Active | 89529064 | | | rest | | | | | | +---------+ + + +--------+ + + | Problem | 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 | | Active | 01584919 | | | (arteriosc | | | | | | | | lerotic | | | | | | | | heart | | | | | | | | disease) | | | | | | +---------+ + + +--------+ + + | Problem | Chronic | | I48.2 | | Active | 569249732 | | | atrial | | | | | | | | fibrillati | | | | | | | | on | | | | | | +---------+ + + +--------+ + + | Problem | Chronic | | Z79.01 | | Active | 340407433 | | | anticoagul | | | | | | | | ation | | | | | | +---------+ + + +--------+ + + | Problem | 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 | | Active | 720212358 | | | vascular | | | | | | | | disease | | | | | | +---------+ + + +--------+ + + | Problem | Hypertensi | I11.9 | | | Active | 65372628 | | | ve | | | [...]
--- OUTSIDE RECORDS SUMMARY | 2017-09-20 11:24 | XMS ---
Demographics + + + | Address | [address] | | | [address] | | | [place] [address] | + + + | Preferred Language | Unknown | + + + | Marital Status | Unknown | + + + | Episcopalian Affiliation | Unknown | + + + | Race | Unknown | + + + | Ethnic Group | Unknown | + + + Author + + + | Author | [facility] | + + + | Organization | [facility] | + + + | Address | [address] | | | [place] [address] | + + + | Phone | | + + + Care Team Providers + + + + | Care Surface Mount Technology Operator Name | Role | Phone | + + + + Unavailable | Unavailable | + + + + PROBLEMS +---------+ + + +--------+ + + | Type | Condition | ICD9-CM | CEK46-JE | Onset | Condition | SNOMED | | | | Code | Code | Dates | Status | Code | +---------+ + + +--------+ + + | Problem | 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 | | Active | 547940269 | | | hyperlipid | | | | | | | | emia | | | | | | +---------+ + + +--------+ + + | Problem | Iron | D50.0 | | | Active | 844871466 | | | deficiency | | | [...] | E11.65 | | | Active | 1924218055 | | | diabetes | | | | | 447[address] | | | mellitus | | | | | | | | with | | | | | | | | hyperglyce | | | | | | | | carmen | | | | | | +---------+ + + +--------+ + + | Problem | Murmur | 785.2 | | | Active | 717559473 | +---------+ + + +--------+ + + | Problem | CKD | N18.3 | | | Active | 319234492 | | | (chronic | | | | | | | | kidney | | | | | | | | disease), | | | | | | | | stage III | | | | | | +---------+ + + +--------+ + + | Problem | Dysthymia | F34.1 | | | Active | 02971644 | +---------+ + + +--------+ + + | Problem | 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.9 | | | Active | 870073328 | | | hypothyroi | | | | | | | | dism | | | | | | +---------+ + + +--------+ + + | Problem | Angina at | | I20.8 | | Active | 67860670 | | | rest | | | | | | +---------+ + + +--------+ + + | Problem | 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 | | Active | 61420858 | | | (arteriosc | | | | | | | | lerotic | | | | | | | | heart | | | | | | | | disease) | | | | | | +---------+ + + +--------+ + + | Problem | Chronic | | I48.2 | | Active | 695131170 | | | atrial | | | | | | | | fibrillati | | | | | | | | on | | | | | | +---------+ + + +--------+ + + | Problem | Chronic | | Z79.01 | | Active | 271464951 | | | anticoagul | | | | | | | | ation | | | | | | +---------+ + + +--------+ + + | Problem | 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 | | Active | 423858160 | | | vascular | | | | | | | | disease | | | | | | +---------+ + + +--------+ + + | Problem | Hypertensi | I11.9 | | | Active | 26896442 | | | ve | | | [...] Amlodipi | Orally | 1 tablet | 24h | | | 90 days | Active | | ne | Once a | | | | | | | | Besylate | day | | | | | | | | 5 MG | | | | | | [...] | 02/21/17 | | | transfered to [facility] | | + + + + | Hospitalization History | [facility] re: chest pain | 02/21-02/23/17 | + + + + | Hospitalization History | [facility] re: chest pain | 04/08/17 | + + + + | Hospitalization History | [facility] re: facial droop | 06/02/17 | + + + +"
--- OUTSIDE RECORDS SUMMARY | 2017-09-20 11:24 | XMS ---
Demographics + + + | Address | [address] | | | [address] | | | [place] [address] | + + + | Preferred Language | Unknown | + + + | Marital Status | Unknown | + + + | Catholic Affiliation | Unknown | + + + | Race | Unknown | + + + | Ethnic Group | Unknown | + + + Author + + + | Author | [facility] | + + + | Organization | [facility] | + + + | Address | 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 | | | Active | [id number] | | | deficiency | | | [...] | E11.65 | | | Active | [id number] | | | diabetes | | | | | [address] | | | mellitus | | | | | | | | with | | | | | | | | hyperglyce | | | | | | | | carmen | | | | | | +---------+ + + +--------+ + + | Problem | Murmur | 785.2 | | | Active | [id number] | +---------+ + + +--------+ + + | Problem | CKD | N18.3 | | | Active | 877300185 | | | (chronic | | | | | | | | kidney | | | | | | | | disease), | | | | | | | | stage III | | | | | | +---------+ + + +--------+ + + | Problem | Dysthymia | F34.1 | | | Active | [id number] | +---------+ + + +--------+ + + | Problem | 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.9 | | | Active | 209931251 | | | hypothyroi | | | | | | | | dism | | | | | | +---------+ + + +--------+ + + | Problem | Angina at | | I20.8 | | Active | 35865653 | | | rest | | | | | | +---------+ + + +--------+ + + | Problem | 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 | | Active | 93045151 | | | (arteriosc | | | | | | | | lerotic | | | | | | | | heart | | | | | | | | disease) | | | | | | +---------+ + + +--------+ + + | Problem | Chronic | | I48.2 | | Active | 419653331 | | | atrial | | | | | | | | fibrillati | | | | | | | | on | | | | | | +---------+ + + +--------+ + + | Problem | Chronic | | Z79.01 | | Active | 998212149 | | | anticoagul | | | | | | | | ation | | | | | | +---------+ + + +--------+ + + | Problem | 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 | | Active | 717821241 | | | vascular | | | | | | | | disease | | | | | | +---------+ + + +--------+ + + | Problem | Hypertensi | I11.9 | | | Active | 24468671 | | | ve | | | [...] VITAL SIGNS MEDICATIONS + + + + + + + +--------+ | Medicati | Instruct | Dosage | Frequenc | Start | End Date | Duration | Status | | on | ions | | y | Date | | | | + + + + + + + +--------+ | Triamcin | External | 1 | | 30 February, | | 30 days | Active | | olone | ly Twice | applicat | | 2016 | | | | | Acetonid | a day | ion to | | | | | | | e 0.1 % | prn | affected | | | | | [...] | 02/21/17 | | | transfered to [facility] | | + + + + | Hospitalization History | [facility] re: chest pain | 02/21-02/23/17 | + + + + | Hospitalization History | [facility] re: chest pain | 04/08/17 | + + + + | Hospitalization History | [facility] re: facial droop | 06/02/17 | + + + +"
--- NOTE | 2017-09-20 22:20 | EKG ---
[facility] [address] [facility] [place] [address] Signed Atrial fibrillation Rightward axis Septal infarct (cited on or before 11-AUG-2016) Marked ST abnormality, possible lateral subendocardial injury Abnormal ECG When compared with ECG of 02-JUN-2017 00:08, Serial changes of Septal infarct present Confirmed by HUBER VILLARREAL MD ([id number]) on 09/20/2017 10:20:07 PM Electronically Signed By: HUBER VILLARREAL MD 09/20/17 2220 PATIENT NAME: CORY NIXON Electrocardiogram DATE OF : [birth year] PHYSICIAN: HUBER VILLARREAL MD REPORT #: [id number] REPORT IS CONFIDENTIAL AND NOT TO BE RELEASED WITHOUT AUTHORIZATION
--- NOTE | 2017-09-20 22:20 | EKG ---
[facility] [address] [facility] [place] [address] Signed Atrial fibrillation Incomplete left bundle branch block ST depression, consider subendocardial injury Nonspecific T wave abnormality Abnormal ECG When compared with ECG of 20-SEP-2017 10:20, (Unconfirmed) No significant change was found Confirmed by HUBER VILLARREAL MD ([id number]) on 09/20/2017 10:20:24 PM Electronically Signed By: HUBER VILLARREAL MD 09/20/17 2220 PATIENT NAME: CORY NIXON Electrocardiogram DATE OF : [birth year] PHYSICIAN: HUBER VILLARREAL MD REPORT #: [id number] REPORT IS CONFIDENTIAL AND NOT TO BE RELEASED WITHOUT AUTHORIZATION
--- NOTE | 2017-09-22 07:45 | EKG ---
[facility] [address] [facility] [place] [address] Signed Atrial fibrillation Inferior infarct , age undetermined Marked ST abnormality, possible lateral subendocardial injury Abnormal ECG When compared with ECG of 20-SEP-2017 11:55, ST now depressed in Anterior leads Nonspecific T wave abnormality no longer evident in Inferior leads T wave inversion more evident in Lateral leads Confirmed by HUBER VILLARREAL MD ([id number]) on 09/22/2017 7:45:41 AM Electronically Signed By: HUBER VILLARREAL MD 09/22/17 0745 PATIENT NAME: CORY NIXON Electrocardiogram DATE OF : [birth year] PHYSICIAN: HUBER VILLARREAL MD REPORT #: [id number] REPORT IS CONFIDENTIAL AND NOT TO BE RELEASED WITHOUT AUTHORIZATION
== END 2017-09-22 13:20 | disposition home or self-care (01) | DRG 281 ==
LOC: ED 10:15 → MS 13:20
PROVIDERS: ADMIT Internal Medicine
PROC: 30233N1 Transfusion of Nonautologous Red Blood Cells into Peripheral Vein, Percutaneous Approach (ICD-10-PCS; principal; 2017-09-21)
DX: I21.4 Non-ST elevation (NSTEMI) myocardial infarction (principal); E87.1 Hypo-osmolality and hyponatremia; N17.9 Acute kidney failure, unspecified; I10 Essential (primary) hypertension; E11.9 Type 2 diabetes mellitus without complications; E03.9 Hypothyroidism, unspecified; I50.9 Heart failure, unspecified; I25.2 Old myocardial infarction; Z86.718 Personal history of other venous thrombosis and embolism; Z79.4 Long term (current) use of insulin; E55.9 Vitamin D deficiency, unspecified
CPT/HCPCS: 36415; 36430; 71010; 80048; 80053; 83880; 84300; 84484; 85025; 85379; 85610; 86850; 86870; 86900; 86901; 86902; 86922; 93005; 93010; J7030; P9016

== ENCOUNTER 2017-09-25 08:37 | Emergency (ER) | payer MEDICARE, OTHER ==
[~2017-09-25] VITALS: Ht 167.6 cm; Wt 67.0 kg
[~2017-09-25 08:37] MED LIST changes: +COLACE100 MG PO; +IRON325 M1 PO
== END 2017-09-25 10:17 | disposition home or self-care (01) ==
LOC: ED 08:37
DX: K62.5 Hemorrhage of anus and rectum (principal); D64.9 Anemia, unspecified; I11.0 Hypertensive heart disease with heart failure; I50.9 Heart failure, unspecified; E11.9 Type 2 diabetes mellitus without complications; I48.91 Unspecified atrial fibrillation; E11.40 Type 2 diabetes mellitus with diabetic neuropathy, unspecified; E03.9 Hypothyroidism, unspecified; Z90.722 Acquired absence of ovaries, bilateral; Z90.710 Acquired absence of both cervix and uterus; Z79.899 Other long term (current) drug therapy; Z79.84 Long term (current) use of oral hypoglycemic drugs
CPT/HCPCS: 36415; 85025; 99284

== ENCOUNTER 2017-10-01 08:56 | Inpatient (IN) | payer MEDICARE, OTHER ==
[~2017-10-01] VITALS: Ht 167.6 cm; Wt 66.5 kg
[2017-10-01] MEDS ORDERED: METOPROLOL SUCC50 MG PO (11:19)
--- NOTE | 2017-10-01 12:26 | NUR ---
PT ARRIVED TO ROOM 128 VIA STRETCHER FROM ER. PT TRANSFERRED SELF TO BED, HOB ELEVATED. VITAL SIGNS COMPLETED AND LR BOLUS 500 MLS STARTED. PT RESTING WITH EYES CLOSED. STATES CHEST DISCOMFORT ABOUT "1 OR 2/10". ALSO STATES "I FEEL SO MUCH BETTER".
[2017-10-01] MEDS ORDERED: ISOSORBIDE DINI20 MG PO (12:40)
[2017-10-01] MEDS ORDERED: ZESTRIL20 MG PO (12:41)
[2017-10-01] MEDS ORDERED: AMARYL4 MG PO (12:42)
[2017-10-01] MEDS ORDERED: METOPROLOL TART25 MG PO (12:45)
--- NOTE | 2017-10-01 13:00 | NUR ---
Medications reconciled using pharmacy records, group care worker notes, PCP note and medication vials. Granddaughter also shared information
--- NOTE | 2017-10-01 16:43 | NUR ---
ASSESSMENT COMPLETED, DENIES CHEST PAIN AT THIS TIME, STATES THE CHEST PAIN WENT AWAY EARLIER. PT VISITING WITH FAMILY MEMEBERS. UP TO BSC WITH ONE PERSON ASSIST VOIDING 275 MLS CLEAR YELLOW URINE. 2ND UNIT PRBC RUNNING.
--- NOTE | 2017-10-01 18:27 | NUR ---
BOWEL PREP STARTED.
--- NOTE | 2017-10-01 19:30 | NUR ---
PT AWAKE IN BED TALKING WITH FAMILY IN ROOM, REPORT RECEIVED FROM YSABEL HURT, PT DENIES NEEDS OR PAIN AT THIS TIME, ALERT AND ORIENTED AND WILL CALL WITH ANY NEEDS.
--- NOTE | 2017-10-01 20:54 | NUR ---
UP TO BSC TO HAVE 500ML STOOL/URINE MIX, STOOL WAS VERY DARK BLACK MOSTLY LIQUID. HR REMAINED IN 80'S WHILE UP THEN BACK TO BED WITH CALL LIGHT IN HAND. ALMOST DONE DRINKING BOWEL PREP.
--- NOTE | 2017-10-01 21:57 | NUR ---
UP TO BSC FOR LIQUID BLACK STOOL/URINE MIX. BACK TO BED, NO REQUESTS, CALL LIGHT IN HAND
--- NOTE | 2017-10-01 22:45 | NUR ---
UP TO BSC THEN BACK TO BED, CALL LIGHT IN HAND. ASSISTED WITH HS CARE, THEN LIGHTS OUT TO TRY TO SLEEP.
--- NOTE | 2017-10-02 00:37 | EKG ---
[facility] [address] [place] [address] Signed Atrial fibrillation Inferior infarct (cited on or before 21-SEP-2017) Anteroseptal infarct , age undetermined Marked ST abnormality, possible lateral subendocardial injury Abnormal ECG When compared with ECG of 21-SEP-2017 08:50, T wave inversion no longer evident in Lateral leads Confirmed by KAYLA GOLDEN MD ([id number]) on 10/02/2017 12:37:26 AM Electronically Signed By: KAYLA GOLDEN MD 10/02/17 0037 PATIENT NAME: CORY NIXON Electrocardiogram DATE OF : [birth year] PHYSICIAN: KAYLA GOLDEN MD REPORT #: [id number] REPORT IS CONFIDENTIAL AND NOT TO BE RELEASED WITHOUT AUTHORIZATION
--- NOTE | 2017-10-02 00:39 | NUR ---
ASSESSMENT DONE. UP TO BSC TO VOID AND HAVE LIQUID STOOL, BACK TO BED WITH CALL LIGHT IN HAND.
--- NOTE | 2017-10-02 02:00 | NUR ---
LOW BP'S NOTED, WILL MONITOR. PT DENIES ANY LIGHTHEADEDNESS/DIZZINESS, DENIES CHEST PAIN OR SOB. IS TIRED AND WANTS TO TRY TO SLEEP.
--- NOTE | 2017-10-02 03:27 | NUR ---
DR GOLDEN UPDATED REGARDING LOW BP'S. 1L NS BOLUS STARTED TO GIVE OVER ONE HOUR. WILL CONTINUE TO MONITOR.
--- NOTE | 2017-10-02 03:57 | NUR ---
UP TO BSC THEN BACK TO BED, STILL HAVING DARK BLACKISH RED LIQUID STOOLS.
--- NOTE | 2017-10-02 05:20 | NUR ---
LAB IN TO DRAW, PT AWAKENS EASILY
--- NOTE | 2017-10-02 06:43 | NUR ---
BLOOD SUGAR OF 62 ON AM LABS, PT GIVEN ENSURE AND ORANGE JUICE WHICH SHE QUICLY DRANK 100% OF. DENIES NEEDS AT THIS TIME, WILL TRY TO GO BACK TO SLEEP.
--- NOTE | 2017-10-02 08:17 | NUR ---
PT AWAKE AND ALERT, ASSESSMENT COMPLETED AND PT DENIES C/O AT THIS TIME. LOPRESSOR 12.5 MG GIVEN PO SIP A SIP OF WATER. PT SIGNED CONSENT FOR COLONOSCOPY. RESTING WITH HOB ELEVATED AND ALSO VISITING WITH CAREGIVER.
--- NOTE | 2017-10-02 09:56 | NUR ---
PT UP TO BSC VOIDING 250 MLS CLEAR YELLOW URINE. RETURNED TO BED WITH 1 PERSON ASSIST. PT NOW TALKING ON PHONE.
--- NOTE | 2017-10-02 10:26 | NUR ---
DR. GOLDEN IN TO ASSESS PT.
--- NOTE | 2017-10-02 11:55 | NUR ---
ASSESSMENT COMPLETED, DENIES C/O. UP TO BSC WITH ONE PERSON ASSIST, VOIDED 400 MLS CLEAR YELLOW URINE, RETURNED TO BED WITH HOB ELEVATED. VITAL SIGNS COMPLETED.
--- NOTE | 2017-10-02 12:54 | NUR ---
PT UP TO BSC WITH ASSIST AND HAD LIQ BM PINK IN COLOR. RETURNED TO BED WITH ASSIST.
--- NOTE | 2017-10-02 15:33 | NUR ---
TO ENDO ROOM [facility]IA [facility] FOR COLONOSCOPY AND POSSIBLE EGD.
--- NOTE | 2017-10-02 17:05 | NUR ---
10/02/17 1705 Eva Acevedo 1629 PT CONFUSED AND TRYING TO GET OUT OF BED. RESP EVEN AND UNLARBORED. [address] AND TIME. PT ASKING TO USE RESTROOM. 1650 PT ON BEDPAN, DARK RED WATERY STOOL PASSED, 100ML. 1700 PT PASSING LARGE AMOUNTS OF AIR. 1704 PT ASLEEP.
--- NOTE | 2017-10-02 18:05 | NUR ---
PT TO FLOOR, TO ROOM 109 VIA STRECHER, ACCOMPANIED BY HILARIA IMPORT EXPORT MANAGER AT 1740. PT AWAKE, ALERT, ORIENTED X 4. GRANDDAUGHTER BERNARD WITH PT, AT BEDSIDE. PRIOR TO PT ARRIVAL TO FLOOR, RECIEVED REPORT FROM ROSEANNE CCU RN.
--- NOTE | 2017-10-02 18:28 | NUR ---
PT UP TO BATHROOM, VOIDED LARGE AMOUNT URINE, MISSED HAT. ALSO HAD SMALL AMOUNT OF CRANBERRY COLORED LIQUID STOOL. PT THEN BACK TO BED WITH FWW WITH ONE PERSON ASSIST. CURRENTLY SITTING UP IN BED, EATING CLEAR LIQUID DINNER. BG 74. NO S/S HYPOGLYCEMIA, NO C/O FEELING HYPOGLYCEMIC.
--- NOTE | 2017-10-02 18:33 | NUR ---
PT TRANSFERED TO FLOOR FROM CCU AFTER C-SCOPE AND EGD. PT ON RA, SAT 99%, LUNGS CTA. DENIES PAIN. HAD LARGE UNMEASURED URINE VOID, WITH SMALL AMOUNT OF DARK CRANBERRY COLORED LIQUID STOOL MIXED IN. PT ALERT, ORIENTED X 4. GRANDAUGHTER AT BEDSIDE. PT ON CLEAR LIQUIDS, WILL HAVE SMALL BOWEL STUDY TOMORROW. HAS D5LR INFUSING AT 100 CC/HR. UP WITH 1 PERSON ASSIST WITH FWW.
--- NOTE | 2017-10-02 19:10 | NUR ---
PT IN BED, HAS EATEN MOST OF CLEAR LIQUID DINNER. DENIES PAIN, DENIES NAUSEA.
--- NOTE | 2017-10-02 19:40 | NUR ---
RECIEVED REPORT FROM DAY SHIFT NURSE. PATIENT RESTING IN BED WITH FAMILY AT BEDSIDE. IVF INFUSING W/O DIFFICULTY. SCDS AND HEEL PROTECTORS IN PLACE. MEAL TRAY REMOVED. WATER PITCHER FILLED. PATIENT DENIES FURTHER NEEDS. CALL LIGHT IN REACH.
--- NOTE | 2017-10-02 19:51 | NUR ---
PATIENT CALLED WANTED TO USE THE TOILET. ASSISTED 1 PERSON, USING WALKER. PATIENT IS BACK IN BED.CALL LIGHT WITHIN REACH. NOTIFIED THE NURSE FOR DARK BLOOD SEEN FROM PATIENT'S VOIDINGS.
--- NOTE | 2017-10-02 20:41 | NUR ---
PATIENT'S FAMILY CALLED STATED PATIENT CAN'T GET HOLD THE NURSE STATION, CALL LIGHT DID NOT WORK. WENT TO THE ROOM AND CHECKED. CHANGED CALL LIGHT AND IT IS WORKING NOW. PATIENT ASKED FOR CHICKEN BROTH AND JELLO, GIVEN.
--- NOTE | 2017-10-02 21:50 | NUR ---
ASSISTED PT TO BATHROOM. PT VOIDED. BACK TO BED. SCDS AND HEEL PROTECTORS IN PLACE. LUNGS CLEAR, HYPERACTIVE BS. NO C/O PAIN OR NAUSEA. BLOOD SUGAR OBTIANED, ADMINISTERED SLIDING SCALE INSULIN. REFILLED WATER PITCHER. PATIENT DENIES FURTHER NEEDS. CALL LIGHT IN REACH.
--- NOTE | 2017-10-02 23:30 | NUR ---
PATIENT SLEEPING. IVF INFUSING W/O DIFFICULTY. CALL LIGHT IN REACH. BED ALARM ON.
--- NOTE | 2017-10-02 23:51 | NUR ---
PATIENT CALLED TO USE THE BATHROOM. 1 PERSON ASSIST WITH WALKER. PATIENT IS BACK IN BED. CALL LIGHT WITHIN REACH.
--- NOTE | 2017-10-03 01:45 | NUR ---
ASSISTED PATIENT TO BATHROOM. VOIDED, BACK TO BED. SCDS IN PLACE. PT C/O KNEE PAIN 04/08, TYLENOL ADMINISTERED, REPOSITIONED LEG ON PILLOW. PATIENT REFUSES TO WEAR HEEL PROTECTORS. PATIENT DENIES FURTHER NEEDS. BED ALARM ON, CALL LIGHT IN REACH.
--- NOTE | 2017-10-03 03:50 | NUR ---
PATIENT SLEEPING. SCDS IN PLACE. CALL LIGHT IN REACH.
--- NOTE | 2017-10-03 04:17 | NUR ---
PATIENT AWAKE RESTING IN BED. STATES SHE HAS BEEN HAVING A HARD TIME SLEEPING. KNEE PAIN HAS RESOLVED. PATIENT COMPLAINING THAT SHE IS HUNGRY. DELIVERED APPLE JUICE. PATIENT DENIES FURTHER NEEDS.
--- NOTE | 2017-10-03 05:34 | NUR ---
PATIENT DID NOT SLEEP WELL LAST NIGHT. 1 BM WITH SMALL CLOT NOTED IN STOOL PER CUTTER AND PASTER PRESS CLIPPINGS ASSESSMENT OF STOOL. VOIDING WELL. R KNEE PAIN LAST NIGHT, GIVEN TYLENOL WHICH WORKED WELL.
--- NOTE | 2017-10-03 07:13 | NUR ---
RECIEVED BEDSIDE REPORT FROM BLU FRAIRE. PT AROUSED TO VERBAL STIMULI, HAS D5LR INFUSING AT 100 CC/HR. FELL BACK ASLEEP DURING REPORT.
--- NOTE | 2017-10-03 07:56 | NUR ---
PT UP TO BATHROOM WITH STANDBY ASSIST USING FWW. PT VOIDED 300 CC URINE, AND HAD A MEDIUM LIQUID BROWN STOOL, NO SHERINE BLOOD OR BLACK TARRY APPEARANCE TO THE STOOL NOTED. PT DENIED NAUSEA OR PAIN. ASSISTED TO RECLINER, WHERE PT IS CURRENTLY EATING CLEAR LIQUID BREAKFAST. CALL LIGHT IN REACH, PERSONAL SUPPLIES ON TRAY TABLE OVER LAP.
--- NOTE | 2017-10-03 08:15 | NUR ---
patient up from bathroom to chair with one person assist with FWW. Bed bath done and oral care. linens changed. Fresh ice water given. no other needs at this time. call button in reach.
--- NOTE | 2017-10-03 10:08 | NUR ---
PT SITTING UP IN RECLINER. HAS PERSONAL SUPPLIES IN REACH, CALL LIGHT IN REACH. DENIED NEEDS.
--- NOTE | 2017-10-03 10:45 | NUR ---
Patient sitting up in chair. fresh ice water given. no needs at this time. call button in reach.
--- NOTE | 2017-10-03 11:04 | NUR ---
IV TO LEFT FOREARM NOT PATENT, INFILTRATED IVF THAT WERE INFUSING. D/C'D IV, ELEVATED ARM, APPLIED WARM PACK. NEW IV STARTED TO RIGHT WRIST, 22 G.
--- NOTE | 2017-10-03 11:14 | CONS ---
[facility] [address] [place], [place] [address] Signed DATE OF CONSULTATION: 10/01/2017 CONSULTING PHYSICIAN: Jaquelin Stanford MD PROBLEM: Recurrent lower gastrointestinal bleeding. HISTORY OF PRESENT ILLNESS: This 87-year-old white woman is now the patient of Dr. Chua (previously Dr. Maldonado). She was seen in the emergency room with angina and recurrent bleeding per rectum. She had no associated hematemesis. She has substernal pain this morning and known history of angina and considered to have a recent ST elevation myocardial infarction, admitted a week ago. She has also had chronic anemia from chronic and episodically acute gastrointestinal bleeding. The patient had previously been on Coumadin for DVT and based on prior recurrent deep venous thromboses, was taken off that, but ultimately was put on aspirin and Plavix. The patient was given nitroglycerin early in the morning related to her angina, but without relief and on that basis was taken to the hospital. Pre-hospital EKG showed a left bundle branch block and ST-segment depressions in the lateral leads. An additional EKG showed no ST elevations in any leads. The patient has had 2 units of blood transfused since her hospitalization and observation in the intensive care unit under the direction of Dr. Mari. Her hemoglobin has increased from an admission 6.8-9.3, corresponding to a hematocrit 27.1. To my knowledge, she has had no further bleeding since hospitalization. Her platelet count is normal at 220,000. Her situation currently is that of having no angina. A MiraLAX based bowel prep was initiated earlier by Dr. Mari at the time of our conversation regarding consultation. The patient does not know of any prior evaluation that included a PillCam device. Review of her record, which understandably is rather extensive confirms upper endoscopy and colonoscopy performed by Dr. Sprague on August 11, 2016. At that time, upper endoscopy showed distal gastritis, minimal right and left-sided diverticulosis, and minimal to moderate internal hemorrhoidal changes. REVIEW OF SYSTEMS: Denies any hematemesis. Has no abdominal pain. She has tolerated her bowel prep well so far (MiraLAX base prep). She has had no further rectal bleeding since admission. Denies any angina at this time. No shortness of breath. PHYSICAL EXAMINATION: GENERAL: Pleasant elderly woman, who looks alert and oriented. Her family members have gone home for the evening. Trachea is midline, I detect no carotid bruit. Electronically Signed By: JAQUELIN STANFORD MD 10/03/17 1114 PATIENT NAME: CORY NIXON CONSULTATION DATE OF : [birth year] PHYSICIAN: JAQUELIN STANFORD MD REPORT #: [id number] REPORT IS CONFIDENTIAL AND NOT TO BE RELEASED WITHOUT AUTHORIZATION [facility] [address] [place], [place] [address] Signed CHEST: Shows normal respiratory excursion. Chest is clear. HEART: Generally regular on palpation of pulse. ABDOMEN: Somewhat distended and puffed up, related possibly to bowel prep. EXTREMITIES: Showed 1+ edema. LAB STUDIES: Showed initial hematocrit of 19.5, normal Chem profile, except for elevated creatinine of 1.57, sodium of 127. Urinalysis only showing the urine osmolality, which is still pending. ASSESSMENT: She has had recurrent apparent lower gastrointestinal bleeding with endoscopic findings previously showing diverticulosis as well as internal hemorrhoidal changes. Additionally, she has had some mild gastritis. She has been on anticoagulation for deep venous thrombosis in the past and more recently on Plavix and possibly aspirin related possibly to myocardial insufficiency. She is at increased risk as regard to her heart, but certainly her heart risks are increased with anemia and ongoing bleeding. Dr. Mari has conferred with the family and the patient, and after due consideration, they do wish to have additional evaluation undertaken to assess the source of gastrointestinal bleeding. This would much dominantly include colonoscopy of course. The bleeding may be related to hemorrhoids alone or diverticular changes, it is uncertain of course. It is unlikely a lesion was missed (cancer), but that is certainly a possibility as well. Negative evaluation may prompt consideration for PillCam device (not locally available) and in any case despite her underlying comorbidities they certainly would revisit whether or not Plavix would be appropriate for her. Plain aspirin may be reasonable and certainly not Coumadin. All of these considerations are those that must take into consideration of the risks of stroke as relates to atrial fibrillation and recurrent deep venous thrombosis as relates to prior history. The risks of bleeding, infection, perforation and of course anesthetic complications related to sedation are reviewed with the patient in detail, she understands. We will look to doing this tomorrow so long as she is medically fit. She will have completed her bowel prep by then. Jaquelin Stanford MD Electronically Signed By: JAQUELIN STANFORD MD 10/03/17 1114 PATIENT NAME: CORY NIXON CONSULTATION DATE OF : [birth year] PHYSICIAN: JAQUELIN STANFORD MD REPORT #: [id number] REPORT IS CONFIDENTIAL AND NOT TO BE RELEASED WITHOUT AUTHORIZATION [facility] [address] [place], [place] [address] Signed /GERARDO /[id number] cc: DO Claude Streeter MD Andrew L Bower, MD Electronically Signed By: JAQUELIN STANFORD MD 10/03/17 1114 PATIENT NAME: CORY NIXON CONSULTATION DATE OF : [birth year] PHYSICIAN: JAQUELIN STANFORD MD REPORT #: [id number] REPORT IS CONFIDENTIAL AND NOT TO BE RELEASED WITHOUT AUTHORIZATION
--- NOTE | 2017-10-03 11:14 | OR ---
[facility] [address] [place], [place] [address] Signed DATE OF OPERATION: 10/02/2017 SURGEON: Jaquelin Stanford MD PREOPERATIVE DIAGNOSES: Recurrent GI bleeding and prior history of various anticoagulation strategies, recently Plavix. POSTOPERATIVE DIAGNOSES: 1. Normal colon to cecum. 2. Normal upper endoscopy except for chronic duodenitis. No lesion to account for bleeding. PROCEDURES: 1. Esophagogastroduodenoscopy with biopsy. 2. Total colonoscopy to cecum with lavage. ANESTHESIA: Intravenous sedation, propofol infusion, Alejandra Gibbs CRNA. INDICATION: This 87-year-old white woman has chronic atrial fibrillation and other coagulation issues and has been anticoagulated with Coumadin in the past, more recently on Plavix alone. She has had recurring GI bleeding and prior upper and lower endoscopic evaluations have been unrevealing as to a source. She is stabilized now, having been admitted yesterday with a significant amount of angina probably related to anemia with a hemoglobin yesterday of about 7. She has had transfusion to a hemoglobin of greater than 9.5. Colonoscopy and possibly upper endoscopy are requested by Dr. Mari, her managing physician. Her primary physician currently is Dr. Sebastian Chua. She understands the risks of bleeding, infection, perforation related to upper endoscopy and colonoscopy and wished to proceed. FINDINGS: Colonoscopy was well prepped. There was somewhat fresh blood within the colon and throughout it. Many attempts were made to intubate the ileum, which were unsuccessful. There was no sign of colitis or other reason for bleeding, however. Upper endoscopy showed only chronic duodenitis, no sign of blood, and no sign of lesion to account for bleeding. Electronically Signed By: JAQUELIN STANFORD MD 10/03/17 1114 PATIENT NAME: CORY NIXON OPERATIVE REPORT DATE OF : [birth year] PHYSICIAN: JAQUELIN STANFORD MD REPORT #: [id number] REPORT IS CONFIDENTIAL AND NOT TO BE RELEASED WITHOUT AUTHORIZATION [facility] [address] [place], [place] [address] Signed It is my impression the bleeding source is in the small bowel somewhere. PROCEDURE IN DETAIL: The patient was brought to the endoscopy suite, given topical Hurricaine spray hypopharyngeal anesthesia, and placed in lateral decubitus position. Intravenous sedation was induced with propofol infusion by the core analyst. A digital rectal examination was undertaken, which showed some medium reddish bloody fluid. An Olympus video colonoscope was passed in the rectum and manipulated throughout the colon, ultimately intubating the cecum itself. Photographs were taken. Some irrigation was required along the way. There was some moderately fresh blood throughout the colon, but no clots or any obvious severe hemorrhage. Many attempts were made to intubate the ileum, which was clearly identified, but it simply could not be done. The scope was withdrawn from that point and examination throughout undertaken showed no sign of abnormality, specifically no arteriovenous malformations, diverticular formation, colitis, or cancer. Retroflexed view was normal as well. The scope was removed and plan was made for upper endoscopy given the paucity of findings on colonoscopy. The bite block was placed and an Olympus video upper endoscope passed in the hypopharynx. The vocal cords were normal. Scope was advanced to the esophagus, stomach, and duodenum showing only mild chronic duodenitis of the bulbar duodenum. Biopsies were taken there and antrum as well for CORRINE and pathologic testing. Retroflexed view confirmed reasonably good flap valve. No sign of gastric varices or collar ulceration. The scope was withdrawn to the distal esophagus, which showed no abnormality based on her age. The remaining esophagus was evaluated as normal. Scope was removed, and the patient was taken to the recovery room in good condition. CONCLUDING DIAGNOSIS: No source of upper GI bleeding or colonic bleeding. We would recommend a small-bowel followthrough or perhaps a PillCam. We would recommend against any anticoagulation at this point going forward given her advanced age and numerous recurrent symptomatic episodes of GI bleeding with anemia. MD JOHN Newton/CORINNE Electronically Signed By: JAQUELIN STANFORD MD 10/03/17 1114 PATIENT NAME: CORY NIXON OPERATIVE REPORT DATE OF : [birth year] PHYSICIAN: JAQUELIN STANFORD MD REPORT #: [id number] REPORT IS CONFIDENTIAL AND NOT TO BE RELEASED WITHOUT AUTHORIZATION [facility] [address] [place] [id number] Signed /[id number] cc: DO Claude Streeter MD Electronically Signed By: JAQUELIN STANFORD MD 10/03/17 1114 PATIENT NAME: CORY NIXON OPERATIVE REPORT DATE OF : [birth year] PHYSICIAN: JAQUELIN STANFORD MD REPORT #: [id number] REPORT IS CONFIDENTIAL AND NOT TO BE RELEASED WITHOUT AUTHORIZATION
--- NOTE | 2017-10-03 15:50 | NUR ---
PT BACK FROM SMALL BOWEL FOLLOW THROUGH IN DIAGNOSTIC IMAGING. PT IS SITTING UP IN RECLINER. PROVIDED WITH WARM BLANKETS PER PT REQUEST. PT STATED THAT SHE WILL STAY UP IN RECLINER FOR DINNER. ASKED IF SHE COULD ADVANCE TO HER REGULAR DIET. RELAYED PT'S REQUEST TO DR. STANFORD. RECIEVED VERBAL ORDER FOR ADA DIET, SECONDARY DIET OF CARDIAC, WITH NO DIET RESTRICTION. UNABLE TO PLACE DIET ORDER WITHOUT CALORIE AMOUNT, SO PLACED ADA 2000 CALORIE DIET WITH CARDIAC SECONDARY DIET ORDER.
--- NOTE | 2017-10-03 16:00 | NUR ---
PATIENT SITTING UP IN CHAIR. CALL BUTTON IN REACH. RN IN ROOM. NO NEEDS AT THIS TIME.
--- NOTE | 2017-10-03 16:05 | NUR ---
PT SITTING UP IN RECLINER. GAVE SCHEDULED MEDICATIONS. PT DENIED NEEDS.
--- NOTE | 2017-10-03 18:03 | NUR ---
PATIENT RESTING IN BED WATCHING TV. FRESH ICE WATER GIVEN CALL BUTTON IN REACH. NO OTHER NEEDS AT THIS TIME.
--- NOTE | 2017-10-03 18:42 | NUR ---
PT DOING WELL. ADVANCED TO ADA/CARDIAC DIET. TOLERATED WELL. HAD 3 LIQUID STOOLS, NO SIGNS OF BLOOD IN STOOL. HAD SMALL BOWEL FOLLOW THROUGH, NOTHING NOTABLE FOUND. SALINE LOCKED. UP WITH FWW WITH STANDBY ASSIST.
--- NOTE | 2017-10-03 18:55 | NUR ---
RECEIVED REPORT FROM RN. PATIENT IS RESTING COMFORTABLY IN BED, BREATHING IS EVEN AND UNLABORED. DENIES NEEDS AT THIS TIME. CALL LIGHT WITHIN REACH.
--- NOTE | 2017-10-03 20:45 | NUR ---
PATIENT RESTING COMFORTABLY IN BED, BREATHING IS EVEN AND UNLABORED. ASSISTED TO BATHROOM WITH 1PA/FWW/NON-SLIP SOCKS. NO BLOODY STOOL NOTED. PATIENT DENIES FURTHER NEEDS AT THIS TIME. CALL LIGHT WITHIN REACH, ASSESSMENT DONE.
--- NOTE | 2017-10-03 23:15 | NUR ---
ASSISTED PATIENT TO BATHROOM WITH SBA/FWW. DENIES FURTHER NEEDS. CALL LIGHT WITHIN REACH.
--- NOTE | 2017-10-04 03:59 | NUR ---
PATIENT RESTING COMFORTABLY IN BED, BREATHING IS EVEN AND UNLABORED. DENIES NEEDS AT THIS TIME. ASSESSMENT DONE, CALL LIGHT WITHIN REACH.
--- NOTE | 2017-10-04 07:10 | NUR ---
BEDSIDE REPORT RECIEVED FROM BLU MENDOZA. PT AWAKE, ALERT, DENIED NEEDS.
--- NOTE | 2017-10-04 07:32 | NUR ---
GOT PT SET UP FOR BREAKFAST, TOOK HER BLOOD SUGAR IT WAS 112, BRUSHED HER DENTURES, AND GAVE HER A WARM WASHCLOTH TO WASH HER FACE, AND FRESH ICE WATER CALL LIGHT IN PLACE
--- NOTE | 2017-10-04 08:07 | NUR ---
DR. VILLARREAL IN TO SEE PT. DISCUSSING PLAN OF CARE. PT ATE 75% OF BREAKFAST.
--- NOTE | 2017-10-04 09:40 | NUR ---
PT SITTING UP IN RECLINER. DENIED NEEDS. DENIED PAIN.
--- NOTE | 2017-10-04 11:37 | NUR ---
PT SITTING UP IN RECLINER. CHECKED BG, 161. PT DENIED PAIN. GAVE DISCHARGE INSTRUCTIONS TO PT, AND EDUCATION REGARDING GI BLEEDING, AND ANEMIA. QUESTIONS ASKED AND ANSWERED, PT VERBALIZED UNDERSTANDING. IV D/C'D WNL. PT TO DISCHARGE TO HOME AFTER LUNCH.
--- NOTE | 2017-10-04 15:21 | NUR ---
REC'D ORDER FROM DR. VILLARREAL FOR HOME HEALTH AFTER DISCHARGE FOR THE DISCIPLINE OF NURSING SERVICES. ALSO REC'D FROM DR. VILLARREAL A SIGNED FACE TO FACE ENCOUNTER CERTIFICATION. PATIENT WAS D/C'D TODAY 10-04-2017. THE FOLLOWING FAXED TO : FACE SHEET, HH ORDER, F2F, ED SUMMARY, ER REPORT, H&P, CONSULT, PROGRESS NOTES, OP REPORT, AND D/C SUMMARY. REC'D FAX CONFIRMATION: TODAY 10-04-2017 AT 1516 FOR A TOTAL OF 65 PAGES.
== END 2017-10-04 12:10 | disposition home or self-care (01) | DRG 378 ==
LOC: ED 08:56 → CCU 11:02 → MS 11:02
PROVIDERS: Surgery; ADMIT Internal Medicine
PROC: 30233N1 Transfusion of Nonautologous Red Blood Cells into Peripheral Vein, Percutaneous Approach (ICD-10-PCS; 2017-10-01)
PROC: 0DB78ZX Excision of Stomach, Pylorus, Via Natural or Artificial Opening Endoscopic, Diagnostic (ICD-10-PCS; principal; 2017-10-02 15:30)
PROC: 3E1H88Z Irrigation of Lower GI using Irrigating Substance, Via Natural or Artificial Opening Endoscopic (ICD-10-PCS; 2017-10-02 15:30)
DX: K92.2 Gastrointestinal hemorrhage, unspecified (principal); D62 Acute posthemorrhagic anemia; E87.1 Hypo-osmolality and hyponatremia; I13.0 Hypertensive heart and chronic kidney disease with heart failure and stage 1 through stage 4 chronic kidney disease, or unspecified chronic kidney disease; I50.22 Chronic systolic (congestive) heart failure; I25.10 Atherosclerotic heart disease of native coronary artery without angina pectoris; E78.5 Hyperlipidemia, unspecified; E11.22 Type 2 diabetes mellitus with diabetic chronic kidney disease; N18.3 Chronic kidney disease, stage 3 (moderate); Z79.4 Long term (current) use of insulin; I25.2 Old myocardial infarction; I48.91 Unspecified atrial fibrillation; K21.9 Gastro-esophageal reflux disease without esophagitis; Z66 Do not resuscitate
CPT/HCPCS: 00740; 36415; 36430; 71010; 74250; 80048; 80053; 82550; 82553; 83735; 83874; 83930; 83935; 84484; 85025; 86850; 86870; 86900; 86901; 86902; 86922; 88305; 93005; 93010; 97116; 97162; J2250; J2270; J2370; J2704; J3010; J3475; J7030; J7120; P9016

== ENCOUNTER 2017-10-27 08:43 | Emergency (ER) | payer MEDICARE, OTHER ==
[~2017-10-27] VITALS: Ht 167.6 cm; Wt 67.6 kg
[~2017-10-27 08:43] MED LIST changes: +METOPROLOL SUCC50 MG PO; +METOPROLOL TART25 MG PO; +ZESTRIL20 MG PO
--- NOTE | 2017-10-27 22:59 | EKG ---
[facility] [address] [facility] [place] [address] Signed Atrial fibrillation Rightward axis Septal infarct (cited on or before 21-SEP-2017) Abnormal ECG When compared with ECG of 01-OCT-2017 09:00, QRS axis shifted right ST no longer depressed in Anterior leads Confirmed by KAYLA GOLDEN MD ([id number]) on 10/27/2017 10:59:26 PM Electronically Signed By: KAYLA GOLDEN MD 10/27/17 2259 PATIENT NAME: CORY NIXON Electrocardiogram DATE OF : [birth year] PHYSICIAN: KAYLA GOLDEN MD REPORT #: [id number] REPORT IS CONFIDENTIAL AND NOT TO BE RELEASED WITHOUT AUTHORIZATION
== END 2017-10-27 12:47 | disposition home or self-care (01) ==
LOC: ED 08:43
PROC: 0T9B70Z Drainage of Bladder with Drainage Device, Via Natural or Artificial Opening (ICD-10-PCS; principal; 2017-10-27)
DX: I20.9 Angina pectoris, unspecified (principal); I11.0 Hypertensive heart disease with heart failure; I50.9 Heart failure, unspecified; I48.91 Unspecified atrial fibrillation; E03.9 Hypothyroidism, unspecified; E11.9 Type 2 diabetes mellitus without complications; I25.2 Old myocardial infarction; Z79.899 Other long term (current) drug therapy
CPT/HCPCS: 36415; 51701; 71010; 80053; 81001; 83874; 84484; 85025; 93005; 93010; 99284

== ENCOUNTER 2018-02-06 10:40 | Emergency (ER) | payer MEDICARE, OTHER ==
[~2018-02-06] VITALS: Ht 167.6 cm; Wt 67.6 kg
--- OUTSIDE RECORDS SUMMARY | ~2018-02-06 | XMS | Encounter Summary ---
Demographics + + + | Address | [address] | | | [place] [address] | + + + | Home Phone | | + + + | Preferred Language | Unknown | + + + | Marital Status | | + + + | Adventism Affiliation | 1073 | + + + | Race | Unknown | + + + | Ethnic Group | Unknown | + + + Author + + + | Author | [email or web address] | + + + | Organization | [facility] [employer] | + + + | Address | Unknown | + + + | Phone | Unavailable | + + + Support + + + + + | Name | Relationship | Address | Phone | + + + + + | Hardy Whitlock | KARINE | [place] | | | "In-Law" | | [phone] | | + + + + + | Abhishek Whitlock | ECON | [place] | | | | | [address] | | + + + + + | Iris Whitlock | ECON | [place] | | | | | [address] | | + + + + + Care Team Providers + +------+ + | Care Brick Carrier Name | Role | Phone | + +------+ + | Sebastian Chua DO | PCP | | + +------+ + Reason for Visit +--------+ + | Reason | Comments | +--------+ + | Other | 11/02/2017: Dr. Toma parsons note | +--------+ + Encounter Details +--------+ + + + + | Date | Type | Department | Care Team | Description | +--------+ + + + + | 11/20/ | Documentati | [facility] | Mine Watters MA | Other (11/02/2017: | | 2018 | on Only | [place] | | Dr. Chua progress | | | | [address] | | note) | | | | [address] | | | | | | [place] [address] | | | | | | [phone] | | | +--------+ + + + + Social History + +-------+ +--------+------+ | Tobacco Use | Types | Packs/Day | Years | Date | | | | | Used | | + +-------+ +--------+------+ | Never Smoker | | | | | + +-------+ +--------+------+ + +---+---+---+ | Smokeless Tobacco: | | | | | Never Used | | | | + +---+---+---+ + + +---------+ + | Alcohol Use | Drinks/We | oz/Week | Comments | | | ek | | | + + +---------+ + | Yes | 0 | 0.0 | red wine once monthly | | | Standard | | | | | drinks or | | | | | | | | | | equivalen | | | | | t 0 | | | | | Glasses | | | | | of wine | | | + + +---------+ + + + + | Sex Assigned at | Date Recorded | | | | + + + | Not on file | | + + + as of this encounter Plan of Treatment +--------+---------+ + + + | Date | Type | Specialty | Care Team | Description | +--------+---------+ + + + | 03/22/ | Office | Cardiology | Kristina Soria | | | 2017 | Visit | | [address] | | | | | | [address] | | | | | | [place] [address] | | | | | | [phone] | | | | | | | | +--------+---------+ + + + as of this encounter Visit Diagnoses Not on filein this encounter
--- OUTSIDE RECORDS SUMMARY | ~2018-02-06 | XMS | Encounter Summary ---
Demographics + + + | Address | [address] | | | [place] [address] | + + + | Home Phone | | + + + | Preferred Language | Unknown | + + + | Marital Status | | + + + | Faith Affiliation | 1073 | + + + | Race | Unknown | + + + | Ethnic Group | Unknown | + + + Author + + + | Author | [facility] | + + + | Organization | [facility] [employer] | + + + | Address | Unknown | + + + | Phone | Unavailable | + + + Support + + + + + | Name | Relationship | Address | Phone | + + + + + | Hardy Whitlock | KARINE | [place] | | | "In[place]Law" | | [phone] | | + + + + + | Abhishek Whitlock | ECON | [place] | | | | | [phone] | | + + + + + | Iris Whitlock | ECON | [place] | | | | | [address] | | + + + + + Care Team Providers + +------+ + | Care Repair Armature Winder Helper Name | Role | Phone | + +------+ + | Sebastian Chua DO | PCP | | + +------+ + Encounter Details +--------+---------+ + + + | Date | Type | Department | Care Team | Description | +--------+---------+ + + + | 01/15/ | Office | [facility] | Chiki Sanchez MD | CKD (chronic kidney | | 2018 | Visit | [address] | [address] | disease) stage 3, | | | | [address] [place], [place] | GFR 30-59 ml/min | | | | [address] [place], [place] | [id number] | (Primary Dx); | | | | [address] | | Bilateral edema of | | | | | | lower extremity; | | | | | | Microalbuminuria; | | | | | | Essential | | | | | | hypertension, benign | +--------+---------+ + + + Social History + +-------+ [...] + + + as of this encounter Last Filed Vital Signs + + + + | Vital Sign | Reading | Time Taken | + + + + | Blood Pressure | 198/80 | 01/15/2018 12:01 PM PDT | + + + + | Pulse | 70 | 01/15/2018 12:01 PM PDT | + + + + | Temperature | 36.3 C (97.4 F) | 01/15/2018 12:01 PM PDT | + + + + | Respiratory Rate | - | - | + + + + | Oxygen Saturation | 97% | 01/15/2018 12:01 PM PDT | + + + + | Inhaled Oxygen | - | - | | Concentration | | | + + + + | Weight | 70.5 kg (155 lb 8 | 01/15/2018 12:01 PM PDT | | | oz) | | + + + + | Height | 167.6 cm (5' 6") | 01/15/2018 12:01 PM PDT | + + + + | Body Mass Index | 25.1 | 01/15/2018 12:01 PM PDT | + + + + in this encounter Instructions Patient Instructions - Chiki Sanchez MD - 01/15/2018 11:40 AM PDTDiscussions/Recommendatio ns: I discussed today with Ms. Whitlock the meaning of her CKD and the interaction of that wi th her diabetes & hypertension. I stressed the importance of keeping her BG & BP controlled and avoiding getting dehydra piter if we are to have a chance at helping preserve her renal function. She showed good unde rstanding. I gave her instructions on how to chart her blood pressure in the appropriate manner at home. She is to call us if they fall outside of the optimal provided range. She will bring her sphygmomanometer for validation once a year. She will strictly abide by a low salt & low purine diet and will avoid all kinds of NSAI Ds for analgesia. Also: I will not change any of her vasoactive meds today. She will report back to me her home BP readings if they fall outside of the optimal prov ided range. At that time, I will decide whether any change to his vasoactive regimen is mercy anted. I asked her to elevate his legs for 1 hour once a day. She knows that she still needs to be active and ambulatory carefully as possible. She will continue to F/U with your office regularly. She will have a RFP, CBC, intact PTH, uric acid, urinalysis, Urine total qvpqkfc-bm-zjlq tinine ratio before she comes back in 6 months.in this encounter Progress Notes Chiki Sanchez MD - 01/15/2018 11:40 AM PDTFormatting of this note may be different from th e original. Patient Active Problem List Diagnosis Thrombus AMI (acute mesenteric ischemia) Diabetes mellitus (HCC) GIB (gastrointestinal bleeding) CKD (chronic kidney disease) stage 3, GFR 30-59 ml/min H. pylori infection Hypothyroidism Diverticula of colon Atrial fibrillation (HCC) Iron deficiency anemia Unstable angina NSTEMI (non-ST elevated myocardial infarction) Microalbuminuria Idiopathic chronic gout of right foot without tophus Hyperuricemia Secondary hyperparathyroidism (HCC) Bilateral edema of lower extremity Dear Dr Chua: I saw your patient Ms. Whitlock in the office today. As you are familiar with her case, I w ill not state her past history in detail. Briefly, she is a 87 y.o. female patient with pas t history as delineated above. she is here to F/U on her CKD and her associated complicatio ns. The patient has history of hypertension since the 1970's, Diabetes Mellitus since ~1999; h er BG and BP control has been reportedly adequate. she denies any history of prolonged expos ure to NSAIDs or recent exposure to known nephrotoxins. she denies any recurrent nephrolithi asis or pyelonephritis. she tells me that she's had no history of urinary retention, gross h ematuria or dysuria. she has mild incontinence symptoms & urgency. No symptoms of UTI; she has 1-2 times nightly nocturia. No history of passing kidney stones. she has no foamy urine either. her baseline Creatinine is 1.55 from 06/2017. There is no family history of renal g enetic diseases such as PKD. she says that she feels 'good ' today. she denies any blurred vision tinnitus, headache, f ever, chills, or cough. No nausea, vomiting, abdominal pain, diarrhea, melena, or hematoche bev. No chest pain, palpitation, dizziness, loss of consciousness, orthopnea, paroxysmal no cturnal dyspnea; she has chronic leg edema. She says her "equilibrium" is not the best, but no recent falls or LOC. The following portions of the patient's history were reviewed and updated as appropriate: a llergies, current medications, past medical history, past social history, past surgical hist ory, family history and problem list. *U/S from 07/2017: no evidence of any significant renal anatomic abnormalities. As in History of Present Illness & in Assessment. All the pertinent systems were reviewed a nd were otherwise negative. Current Outpatient Prescriptions Medication Sig Dispense Refill atorvastatin (LIPITOR) 80 MG tablet Take 80 mg by mouth nightly. B Complex Vitamins (B COMPLEX 1 PO) Take 1 tablet by mouth. Cholecalciferol (VITAMIN D3) 2000 UNITS TABS Take 1 tablet by mouth daily. ferrous sulfate, 65 FE, 324 (65 Fe) MG EC tablet Take 65 mg of iron by mouth daily with breakfast. folic acid (EQL FOLIC ACID) 400 MCG tablet Take 400 mcg by mouth daily. gabapentin (NEURONTIN) 100 MG capsule Take 300 mg by mouth nightly. glimepiride (AMARYL) 4 MG tablet Take 4 mg by mouth every morning before breakfast. isosorbide dinitrate (ISORDIL) 20 MG tablet Take 1 tablet by mouth 3 (three) times jarad y. 90 tablet 11 levothyroxine (SYNTHROID) 125 MCG tablet Take 125 mcg by mouth every morning before yonathan akfast. lisinopril (ZESTRIL) 20 MG tablet Take 10 mg by mouth daily. Magnesium 400 MG CAPS Take 1 tablet by mouth daily. (Patient taking differently: Take 1 tablet by mouth 2 (two) times daily.) 5 capsule 0 metoprolol (TOPROL-XL) 50 MG 24 hr tablet Take 50 mg by mouth 2 (two) times daily. mirtazapine (REMERON) 15 MG tablet Take 15 mg by mouth nightly. nitroGLYCERIN (NITROSTAT) 0.[address] 0.4 mg under the tongue every 5 (five) minutes as needed for Chest pain. potassium chloride (K-DUR) 10 MEQ tablet Take 10 mEq by mouth 2 (two) times daily. torsemide (DEMADEX) 20 MG tablet Take 1 tablet by mouth daily. (Patient taking differen tly: Take 10 mg by mouth daily.) 30 tablet 11 triamcinolone (KENALOG) 0.1 % cream Apply topically 2 (two) times daily. No current facility-administered medications for this visit. Physical Exam: BP 198/80 (BP Location: Left upper arm, Patient Position: Sitting) | Pulse 70 | Temp 97.4 F (36.3 C) (Temporal) | Ht 1.676 m (5' 6") | Wt 70.5 kg (155 lb 8 oz) | SpO2 97% | BMI 25.10 kg/m General appearance: Pleasant, not in acute distress. Neck: Supple without tracheal deviation or jugular venous distension. Head and ENT: Head is atraumatic. The oropharynx is without erythema or thrush. Eyes: Anicteric. The extraocular muscle movements are normal. Lungs: Clear to auscultation bilaterally. There are no wheezes. Heart: Regular rate and rhythm without any rub, gallop. No murmur. Abdominal exam: Soft and nontender with normal bowel sounds. Musculoskeletal: No costovertebral angle tenderness bilaterally. Extremities: Warm to touch with trace pitting leg edema. There is no cyanosis. Skin: There are no rashes, petechiae, or ecchymosis. Neurological: Awake, alert, and oriented to time, place, and person. Normal gross motor po wer. There is no asterixis. Psychiatric: The patient s behavior is normal. Judgment and thought content are normal. Lab Results Component Value Date BUN 45 (A) 01/11/2018 CREATININE 1.52 (A) 01/11/2018 EGFR 32 (A) 01/11/2018 NA 133 01/11/2018 K 4.8 01/11/2018 CL 97 01/11/2018 CO2 27 01/11/2018 CA 10.3 (A) 01/11/2018 PHOS 2.9 02/23/2017 MG 1.2 (A) 10/09/2017 MG 1.2 (A) 10/09/2017 ALB 4.1 01/11/2018 HGB 11.2 (A) 01/11/2018 URICACID 6.9 (A) 01/11/2018 WBC 6.2 01/11/2018 HCT 34.9 (A) 01/11/2018 LABPROT 243.9 (A) 01/11/2018 Assessment: Ms. Whitlock is a 87 y.o. female patient with stage III CKD on a background of longstanding hypertension & diabetes. The most likely pathology here is that of diabetic nephropathy +/- hypertensive nephrosclerosis/arteriolosclerosis. *she was hospitalized in early 09/2017 with a GI bleed; scoping did not show any source. So on after she was hospitalized with [facility] & needed PRBC 2 units transfused. RENAL FUNCTION: Relatively stable now BLOOD PRESSURE: Adequately controlled at home, for her age: 140-150's/50-80's mmHg BLOOD SUGAR: Reports it controlled ELECTROLYTES: okay ANEMIA: Improved now VITAMIN D: To be checked thru your office PARATHYROID HORMONE: ok URIC ACID: acceptable PROTEINURIA: mild URINALYSIS: No UTI or hematuria VOLUME STATUS: Euvolumic. Discussions/Recommendations: I discussed today with Ms. Whitlock the meaning of her CKD and the interaction of that wi th her diabetes & hypertension. I stressed the importance of keeping her BG & BP controlled and avoiding getting dehydra piter if we are to have a chance at helping preserve her renal function. She showed good unde rstanding. I gave her instructions on how to chart her blood pressure in the appropriate manner at home. She is to call us if they fall outside of the optimal provided range. She will bring her sphygmomanometer for validation once a year. She will strictly abide by a low salt & low purine diet and will avoid all kinds of NSAI Ds for analgesia. Also: I will not change any of her vasoactive meds today. She will report back to me her home BP readings if they fall outside of the optimal prov ided range. At that time, I will decide whether any change to his vasoactive regimen is mercy anted. I asked her to elevate his legs for 1 hour once a day. She knows that she still needs to be active and ambulatory carefully as possible. She will continue to F/U with your office regularly. She will have a RFP, CBC, intact PTH, uric acid, urinalysis, Urine total rpqncfn-qo-lxen tinine ratio before she comes back in 6 months. I spent 15 minutes of this 25-minute visit in education, counseling and answering all of her questions to her satisfaction. Thank you Dr Chua for the opportunity to see this patient in F/U today. Please do not hes itate to call me at any time with questions or concerns. Truly yours, Chiki Sanchez MD [facility] in this encounter Plan of Treatment +--------+---------+ + + + | Date | Type | Specialty | Care Team | Description | +--------+---------+ + + + | 03/22/ | Office | Cardiology | Kristina Soria | | | 2017 | Visit | | [address] | | | | | | [address] | | | | | | [place] [address] | | | | | | [phone] | | | | | | | | +--------+---------+ + + + as of this encounter Visit Diagnoses + + | Diagnosis | + + | CKD (chronic kidney disease) stage 3, GFR 30-59 ml/min - Primary | + + | Chronic kidney disease, Stage III (moderate) | + + | Bilateral edema of lower extremity | + + | Edema | + + | Microalbuminuria | + + | Proteinuria | + + | Essential hypertension, benign | + +
--- OUTSIDE RECORDS SUMMARY | ~2018-02-06 | XMS | Encounter Summary ---
Demographics + + + | Address | [address] | | | [place] [address] | + + + | Home Phone | | + + + | Preferred Language | Unknown | + + + | Marital Status | | + + + | Mandaeism Affiliation | 1073 | + + + | Race | Unknown | + + + | Ethnic Group | Unknown | + + + Author + + + | Author | [facility] | + + + | Organization | [facility] | + + + | Address | Unknown | + + + | Phone | Unavailable | + + + Support + + + + + | Name | Relationship | Address | Phone | + + + + + | Hardy Whitlock | KARINE | [place] | | | "In-Law" | | [address] | | + + + + + | Abhishek Whitlock | ECON | [place] | | | | | [address] | | + + + + + | Iris Whitlock | ECON | [place] | | | | | [address] | | + + + + + Care Team Providers + +------+ + | Care Outdoor Landscape Architect Name | Role | Phone | + +------+ + | Sebastian Chua DO | PCP | | + +------+ + Reason for Visit +--------+ + | Reason | Comments | +--------+ + | Other | Blood Pressure log dated 11/27/2017-01/16/2018 | +--------+ + Encounter Details +--------+ + + + + | Date | Type | Department | Care Team | Description | +--------+ + + + + | 01/18/ | Documentati | [facility] | Serenity Quesada CMA | Other (Blood | | 2018 | on Only | [place] [address] | | Pressure log dated | | | | [address] | | 11/27/2017-01/16/2018) | | | | [place], [place] [address] | | | | | | [phone] | | | +--------+ + + + [...] | | | | | [place] [address] | | | | | | [phone] | | | | | | | | +--------+---------+ + + + as of this encounter Visit Diagnoses Not on filein this encounter
--- OUTSIDE RECORDS SUMMARY | ~2018-02-06 | XMS | Encounter Summary ---
Demographics + + + | Address | [address] | | | [place] [address] | + + + | Home Phone | | + + + | Preferred Language | Unknown | + + + | Marital Status | | + + + | Zoroastrian Affiliation | 1073 | + + + | Race | Unknown | + + + | Ethnic Group | Unknown | + + + Author + + + | Author | [facility] | + + + | Organization | [facility] | + + + | Address | Unknown | + + + | Phone | Unavailable | + + + Support + + + + + | Name | Relationship | Address | Phone | + + + + + | Hardy Whitlock | KARINE | [place] | | | "In-Law" | | [address] | | + + + + + | Abhishek Whitlock | ECON | [place] | | | | | [address] | | + + + + + | Iris Whitlock | ECON | [place] | | | | | [address] | | + + + + + Care Team Providers + +------+ + | Care Shank Stapler Name | Role | Phone | + +------+ + | Sebastian Chua DO | PCP | | + +------+ + Reason for Visit + + + | Reason | Comments | + + + | Labs Only | 10/27/2017: [facility] | + + + Encounter Details +--------+ + + + + | Date | Type | Department | Care Team | Description | +--------+ + + + + | 11/14/ | Documentati | [facility] | Mine Watters MA | Labs Only | | 2018 | on Only | Ciro Richardson | | (10/27/2017: | | | | [address] | | [facility]) | | | | [place], [place] | | | | | | [address] | | | | | | [phone] | | | +--------+ + + + [...] [address] | | | | | | [place] [address] | | | | | | [phone] | | | | | | | | +--------+---------+ + + + as of this encounter Visit Diagnoses Not on filein this encounter
--- OUTSIDE RECORDS SUMMARY | ~2018-02-06 | XMS | Clinical Summary ---
Demographics + + + | Address | [address] | | | [address] | | | [place] [address] | + + + | Home Phone | | + + + | Preferred Language | Unknown | + + + | Marital Status | Single | + + + | Yazdanism Affiliation | NRP | + + + | Race | White | + + + | Ethnic Group | Not or | + + + Author + + + | Author | [facility] | + + + | Organization | [facility] | + + + | Address | Unknown | + + + | Phone | Unavailable | + + + Support + + + + + | Name | Relationship | Address | Phone | + + + + + | APRIL NIXON | KARINE | [place] | | | | | [address] | | + + + + + | BHUPINDER NIXON | ECON | [place] [address], | | | | | [place] [address] | | + + + + + Care Team Providers + +------+ + | Care Senior Litigation Paralegal Name | Role | Phone | + +------+ + PP | Unavailable | + +------+ + Source Comments TANIKA is fully live on both [facility] and [facility] Allergies No Known Allergies Current Medications + + + +---------+------+------+-------+ | Prescription | Sig. | Disp. | Refills | Star | End | Statu | | | | | | t | Date | s | | | | | | Date | | | + + + +---------+------+------+-------+ | citalopram 20 mg | Take 20 mg by mouth | | | | | Activ | | Oral tablet | once daily. | | | | | e | + + + +---------+------+------+-------+ | folic acid 0.5 mg | Take by mouth. | | | | | Activ | | Oral tablet | | | | | | e | + + + +---------+------+------+-------+ | levothyroxine 125 | Take 125 mcg by | | | | | Activ | | mcg Oral tablet | mouth before | | | | | e | | | breakfast. | | | | | | + + + +---------+------+------+-------+ | mupirocin 2 % | three times daily. | | | | | Activ | | Topical Ointment | Apply to affected | | | | | e | | | area. | | | | | | + + + +---------+------+------+-------+ | potassium chloride | Take 10 mEq by mouth | | | | | Activ | | SR 10 mEq Oral | two times daily. | | | | | e | | tablet,ER | | | | | | | | particles/crystals | | | | | | | + + + +---------+------+------+-------+ | simvastatin 40 mg | Take 1 Tab by mouth | 90 Tab | 0 | 08/1 | | Activ | | Oral tablet | once daily in the | | | 1/20 | | e | | | evening. | | | 13 | | | + + + +---------+------+------+-------+ | furosemide 40 mg | Take 1 Tab by mouth | 30 Tab | 0 | 08/1 | | Activ | | Oral tablet | once daily. | | | 1/20 | | e | | | | | | 13 | | | + + + +---------+------+------+-------+ | isosorbide | Take 1 Tab by mouth | 90 Tab | 0 | 08/1 | | Activ | | dinitrate 20 mg Oral | three times daily. | | | 1/20 | | e | | tablet | | | | 13 | | | + + + +---------+------+------+-------+ | metoprolol | Take 1 Tab by mouth | 60 Tab | 0 | 08/1 | | Activ | | tartrate 50 mg Oral | two times daily. | | | 1/20 | | e | | tablet | | | | 13 | | | + + + +---------+------+------+-------+ | hydrALAZINE 25 mg | Take 2 Tabs by mouth | 180 Tab | 0 | 08/1 | | Activ | | Oral tablet | three times daily. | | | 120 | | e | | | | | | 13 | | | + + + +---------+------+------+-------+ Active Problems + + + | Problem | Noted Date | + + + | RED CELL ANTIBODIES - allow additional time for crossmatch | 06/17/2013 | + + + + + | Overview: Patient is sensitized against red cell antigen | | "Fya". Approximately 34% of units are expected to be compatible. | | Allow at least 2-3 hours for completion of crossmatch. | + + + + + | Atrial fibrillation (HCC) | 06/07/2013 | + + + + + | Overview: Rate-controlled with Metoprolol | | Previously anti-coagulated with Coumadin until 06/05 when dx w/LBIG | + + + + + | Hypertension | 06/07/2013 | + + + | Hyperlipidemia | 06/07/2013 | + + + | Diabetes mellitus (HCC) | 06/07/2013 | + + + | PAD (peripheral artery disease) (HCC) | 06/07/2013 | + + + + + | Overview: S/p "LLE bypass" in 1990sS/p iliofemoral artery | | thrombosis with embolectomy 08/2012 (acute limb ischemia) | + + + + + | Coronary artery disease | 06/07/2013 | + + + | CKD (chronic kidney disease) | 06/07/2013 | + + + | GI bleed | 06/06/2013 | + + + Social History + +-------+ +--------+------+ | Tobacco Use | Types | Packs/Day | Years | Date | | | | | Used | | + +-------+ +--------+------+ | Never Smoker | | | | | + +-------+ +--------+------+ + + +---------+ + | Alcohol Use | Drinks/We | oz/Week | Comments | | | ek | | | + + +---------+ + | No | | | | + + +---------+ + + + + | Sex Assigned at | Date Recorded | | | | + + + | Not on file | | + + + Last Filed Vital Signs + + + + | Vital Sign | Reading | Time Taken | + + + + | Blood Pressure | 141/66 | 06/09/2013 11:23 AM PDT | + + + + | Pulse | 73 | 06/09/2013 11:23 AM PDT | + + + + | Temperature | 37.1 C (98.8 F) | 06/09/2013 11:23 AM PDT | + + + + | Respiratory Rate | 14 | 06/09/2013 11:23 AM PDT | + + + + | Oxygen Saturation | 96% | 06/09/2013 11:23 AM PDT | + + + + | Inhaled Oxygen | - | - | | Concentration | | | + + + + | Weight | 93.8 kg (206 lb 12.7 | 06/07/2013 10:20 PM PDT | | | oz) | | + + + + | Height | - | - | + + + + | Body Mass Index | - | - | + + + + Plan of Treatment + + + + + | Health Maintenance | Due Date | Last Done | Comments | + + + + + | INFLUENZA VACCINE | | | | | (FLU SHOT) | 8 | | | + + + + + Results Not on filefrom Last 3 Months
--- OUTSIDE RECORDS SUMMARY | ~2018-02-06 | XMS | Clinical Summary ---
Demographics + + + | Address | [address] | | | [place] [address] | + + + | Home Phone | | + + + | Preferred Language | Unknown | + + + | Marital Status | Unknown | + + + | Mormonism Affiliation | Unknown | + + + | Race | Unknown | + + + | Ethnic Group | Unknown | + + + Author + + + | Author | [facility] | | | and [place] | + + + | Organization | [facility] | | | and [place] | + + + | Address | Unknown | + + + | Phone | Unavailable | + + + Care Team Providers + +------+ + | Care Coremaker Machine Name | Role | Phone | + +------+ + | Joey Maldonado | PP | | | MD | | | + +------+ + Allergies Not on File Current Medications + + + +---------+------+------+-------+ | Prescription | Sig. | Disp. | Refills | Star | End | Statu | | | | | | t | Date | s | | | | | | Date | | | + + + +---------+------+------+-------+ | polyethylene | Take 4,000 mLs by | 4000 mL | 0 | 01/1 | | Activ | | glycol-electrolytes | mouth See Admin | | | 0/20 | | e | | (NULYTELY WITH | Instructions. Start | | | 18 | | | | FLAVOR PACKS) 420 g | prep at 3 p.m.day | | | | | | | solution | prior to Pillcam | | | | | | | | drink 8 ozs q 15 | | | | | | | | mins until 1/3 of | | | | | | | | prep is gone. | | | | | | + + + +---------+------+------+-------+ Active Problems Not on file Encounters +--------+ + + + + | Date | Type | Specialty | Care Team | Description | +--------+ + + + + | 11/09/ | Telephone | | Pola Benoit MD | Appointment (Patient | | 2018 | | | | canceled PillCam) | +--------+ + + + + from Last 3 Months Social History + +-------+ +--------+------+ | Tobacco Use | Types | Packs/Day | Years | Date | | | | | Used | | + +-------+ +--------+------+ | Never Assessed | | | | | + +-------+ +--------+------+ + + + | Sex Assigned at | Date Recorded | | | | + + + | Not on file | | + + + Plan of Treatment + + + + + | Health Maintenance | Due Date | Last Done | Comments | + + + + + | Vaccine: | | | | | Dtap/Tdap/Td (1 - | 7 | | | | Tdap) | | | | + + + + + | Vaccine: Zoster (#1) | | | | | | 8 | | | + + + + + | Vaccine: | | | | | Pneumococcal 65+ | 3 | | | | Low/Medium Risk (1 | | | | | of 2 - PCV13) | | | | + + + + + | Vaccine: Influenza | | | | | (Season Ended) | 8 | | | + + + + + Results Not on filefrom Last 3 Months Insurance + +--------+ +--------+ +---------+ | Payer | Benefi | Subscriber | Type | Phone | Address | | | t Plan | ID | | | | | | / | | | | | | | Group | | | | | + +--------+ +--------+ +---------+ | MEDICARE | MEDICA | xxxxxxxxxx | Medica | [phone] | | | | RE | | re | [phone] | | | | PART A | | | | | | | AND B | | | | | + +--------+ +--------+ +---------+ | [place]ICAID [place] | MEDICA | xxxxxxxx | Medica | [phone] | | | [place] | | id | [phone] | | | | PLUS | | | | | + +--------+ +--------+ +---------+ + +--------+ +--------+ + + | Guarantor Name | Accoun | Relation to | Date | Phone | Billing Address | | | t Type | Patient | of | | | | | | | | | | + +--------+ +--------+ + + | ROSA NIXON | Person | Self [birth year] Home: | [address] | | | al/Fam | | [phone] [phone] | | | [address] | | [phone] | [place] [address] | + +--------+ +--------+ + +"
--- OUTSIDE RECORDS SUMMARY | ~2018-02-06 | XMS | Encounter Summary ---
Demographics + + + | Address | [address] | | | [place] [address] | + + + | Home Phone | | + + + | Preferred Language | Unknown | + + + | Marital Status | | + + + | Sabianism Affiliation | 1073 | + + + | Race | Unknown | + + + | Ethnic Group | Unknown | + + + Author + + + | Author | [facility] | + + + | Organization | [facility] | + + + | Address | Unknown | + + + | Phone | Unavailable | + + + Support + + + + + | Name | Relationship | Address | Phone | + + + + + | Hardy Whitlock | KARINE | [place] | | | "[place]Law" | | [phone] | | + + + + + | Abhishek Whitlock | ECON | [place] | | | | | [address] | | + + + + + | Iris Whitlock | ECON | [place] | | | | | [address] | | + + + + + Care Team Providers + +------+ + | Care Foreclosure Clerk Name | Role | Phone | + +------+ + | Sebastian Chua DO | PCP | | + +------+ + Reason for Visit +--------+ + | Reason | Comments | +--------+ + | Other | Appointment and Lab reminder | +--------+ + Encounter Details +--------+ + + + + | Date | Type | Department | Care Team | Description | +--------+ + + + + | 01/09/ | Telephone | [facility] | Serenity Quesada CMA | Other (Appointment | | 2017 | | [place] [address] | | and Lab reminder) | | | | [address] | | | | | | [place], [place] [address] | | | | | | [phone] | | | +--------+ + + + [...] Cardiology | Kristina Soria | | | 2018 | Visit | | [address] | | | | | | [place] | | | | | | [place] [address] | | | | | | [phone] | | | | | | | | +--------+---------+ + + + as of this encounter Visit Diagnoses Not on filein this encounter
--- OUTSIDE RECORDS SUMMARY | ~2018-02-06 | XMS | Encounter Summary ---
Demographics + + + | Address | [address] | | | [place] [address] | + + + | Home Phone | | + + + | Preferred Language | Unknown | + + + | Marital Status | | + + + | Pentecostal Affiliation | 1073 | + + + | Race | Unknown | + + + | Ethnic Group | Unknown | + + + Author + + + | Author | [email or web address] | + + + | Organization | [facility] | + + + | Address | Unknown | + + + | Phone | Unavailable | + + + Support + + + + + | Name | Relationship | Address | Phone | + + + + + | Hardy Whitlock | KARINE | [place] | | | "[place]" | | [phone] | | + + + + + | Abhishek Whitlock | ECON | [place] | | | | | [address] | | + + + + + | Iris Whitlock | ECON | [place] | | | | | [address] | | + + + + + Care Team Providers + +------+ + | Care Forging Operator Name | Role | Phone | + +------+ + | Sebastian Chua DO | PCP | | + +------+ + Reason for Visit + + + | Reason | Comments | + + + | Labs Only | [facility] dated 01/11/2018 | + + + Encounter Details +--------+ + + + + | Date | Type | Department | Care Team | Description | +--------+ + + + + | 01/12/ | Documentati | [facility] | Serenity Quesada CMA | Labs Only ([facility] | | 2018 | on Only | [place] [address] | | Labs dated | | | | [address] | | 01/11/2018) | | | | [place] [address] | | | | | | [phone] | | | +--------+ + + + [...] [address] | | | | | | [place] [address] | | | | | | [phone] | | | | | | | | +--------+---------+ + + + as of this encounter Visit Diagnoses Not on filein this encounter
--- OUTSIDE RECORDS SUMMARY | ~2018-02-06 | XMS | Encounter Summary ---
Demographics + + + | Address | [address] | | | [place] [address] | + + + | Home Phone | | + + + | Preferred Language | Unknown | + + + | Marital Status | | + + + | Adventist Affiliation | [id number] | + + + | Race | Unknown | + + + | Ethnic Group | Unknown | + + + Author + + + | Author | [facility] | + + + | Organization | [facility] | + + + | Address | Unknown | + + + | Phone | Unavailable | + + + Support + + + + + | Name | Relationship | Address | Phone | + + + + + | Hardy Whitlock | KARINE | [place] | | | "In-Law" | | [phone] | | + + + + + | Abhishek Whitlock | ECON | [place] | | | | | [phone] | | + + + + + | Iris hWitlock | ECON | [place] | | | | | [phone] | | + + + + + Care Team Providers + +------+ + | Care Grain Combine Driver Name | Role | Phone | + +------+ + | Sebastian Zuniga DO | PCP | | + +------+ + Reason for Visit + + + | Reason | Comments | + + + | Follow-up | 3 month, and ER visit chest pain | + + + Encounter Details +--------+---------+ + + + | Date | Type | Department | Care Team | Description | +--------+---------+ + + + | 11/20/ | Office | [facility] | Kristina Soria | Persistent atrial | | 2018 | Visit | Cardiology [place] | [address] | fibrillation (HCC) | | | | [address] | [place] | (Primary Dx); | | | | [facility] [address] | [place] [address] | History of non-ST | | | | [place] [address] | [phone] | elevation myocardial | | | | [phone] | | infarction | | | | | | (NSTEMI); Chronic | | | | | | systolic congestive | | | | | | heart failure (HCC); | | | | | | Transient cerebral | | | | | | ischemia, | | | | | | unspecified type; | | | | | | Type 2 diabetes | | | | | | mellitus with | | | | | | diabetic 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| | angiopathy without | | | | | | gangrene, without | | | | | | long-term current | | | | | | use of insulin | | | | | | (HCC); CKD (chronic | | | | | | kidney disease) | | | | | | stage 3, GFR 30-59 | | | | | | ml/min; Mixed | | | | | | hyperlipidemia | +--------+---------+ + + + Social History [...] + + + | Blood Pressure | 148/76 | 11/20/2017 10:33 AM PST | + + + + | Pulse | 66 | 11/20/2017 11:27 AM PST | + + + + | Temperature | - | - | + + + + | Respiratory Rate | - | - | + + + + | Oxygen Saturation | 97% | 11/20/2017 10:33 AM PST | + + + + | Inhaled Oxygen | - | - | | Concentration | | | + + + + | Weight | 66.8 kg (147 lb 3.2 | 11/20/2017 10:33 AM PST | | | oz) | | + + + + | Height | 167.6 cm (5' 6") | 11/20/2017 10:33 AM PST | + + + + | Body Mass Index | 23.76 | 11/20/2017 10:33 AM PST | + + + + in this encounter Instructions Patient Instructions - Kristina Soria ARNP - 11/20/2017 10:30 AM PSTSee me back in 4 months, get fasting labs done prior to seeing me back, can do them with either Dr. Zuniga's labs or Dr. Sanchez's I made no changes today to medicationsin this encounter Progress Notes Kristina Soria ARNP - 11/20/2017 10:30 AM PSTFormatting of this note may be differen t from the original. Date of visit: 11/20/2017 Primary Care Physician: SEBASTIAN ZUNIGA CHIEF COMPLAINT: Chief Complaint Patient presents with Follow-up 3 month, and ER visit chest pain HISTORY OF PRESENT ILLNESS: Ms. Rosa Whitlock is an 87-year-old woman who is here today for follow-up on heart rate and blood pressure control , with recent ER and hospitalization for chest pain, atrial fibri llation RVR, and GI bleed. She is accompanied by her caregiver who contributed to history. She a history of chronic atrial fibrillation , but not on anticoagulation because of history of repeated GI bleeding, hypothyroidism, chronic kidney disease with a GFR of 30, ty pe II diabetes, and peripheral vascular disease with right femoral embolectomy performed in 2011., and had TIA 06/02/2017 when she was hospitalized for 3 days. I had previously been working to optimize her heart failure medications and also bett er control her blood pressure. Unfortunately. Since she saw me last she was admitted to [facility] in October 01- fo r GI bleeds with STEMI ,and also had anemia from chronic and episodically acute GI bleeds. I reviewed the records for this hospitalization and ER visit today. She was given 2 units of blood and monitored in the intensive care unit and seen by Dr. Gong for endoscopy. He r EKG done at admission showed atrial fibrillation at 94 bpm. She was again admitted on October 27, 2017 with chest pain with troponin T of 0.021 and E KG done at the time showed atrial fibrillation at 94 bpm but recovered rapidly and discharge d home. She was seen by PCP, Dr. Zuniga on November 02, 2017, and I reviewed note which documente d increasing metoprolol succinate to 50 mg bid She had been seen in [facility] in February/2017 for acute non-STEMI and had refused ang iogram and intervention at that point and only wished to pursue medical management and she h as an up-to-date POLST. The 2 week event monitor showed only atrial fib with fastest heart rate of 128 bpm , and av eraging 80 bpm, and rare PAC's or PVC's, and no pauses or blocks, or other arrhythmia , and no patient triggered events. The 06/03/17 carotid ultrasound showed moderate stenosis of the left internal carotid artery. There was a peak systolic velocity of the distal RCA which raised the possibility o f proximal stenosis near the origin ,and limited evaluation of the mid and distal right inte rnal carotid artery due to heavy atherosclerotic calcification , note made further CT angio graphy would be needed for more detailed evaluation, which she did not wish to pursue. Her 06/05 Echo done while she was in the hospital had only minor changes from the one done in January,.with stable EF of 40-45 percent, mild enlargement of the right ventricle bu t normal right ventricle systolic function. Left atrium was more enlarged, and there was mo derate aortic stenosis with peak mean pressure gradient of 13.6/5.93 and valve area of 1.4 c m. There was mild pulmonary hypertension, that was actually improved from previous study. Her 05/2017 lipid panel showed lipids well controlled . Her labs done while she was in the emergency room on October 27, 2017 showed mild continu ed anemia with hemoglobin of 10.6 and hematocrit of 31.5 with normal platelet count, and CMP shows elevated glucose of 196 with BUN of 32 and creatinine of 1.4 and GFR of 35 and again hyponatremic with sodium of 129 but normal liver enzymes. They brought in a log of her blood pressure which shows systolic pressure prior to medicat ions 145-165 mmHg heart rate in the 54-65 bpm range and her blood pressure today is 148/76 and I took her pulse at 66 bpm . She reports she feels well today and denies any chest pain, dyspnea, palpitations, or sync ope. She also denies any signs or symptoms of stroke. She continues to have ongoing swelling to her lower legs and is wearing compression socks b ut swelling seems stable and her Demadex has been decreased to 10 mg daily. Her previous la bs had shown a low magnesium and magnesium level of 1.[address] Sanchez had increased her magn esium to 400 mg bid,and she remains off Plavix and aspirin for ongoing problems with GI blee ding They brought in her medication bottles today and I personally reviewed them with them. REVIEW OF SYSTEMS: Negative except for pertinent items noted in HPI. Constitutional: Reports mild fatigue, gradually improving. Denies unexplained weight loss. Appetite is good. Weight is stable. Denies night sweats fevers or chills HENT: Denies nosebleeds. Moderate hearing problems. Denies dysphagia Eyes: Glasses. Hx cataract and strabismus surgery Denies visual disturbance or double visio n. Denies history of glaucoma or macular degeneration. Respiratory/Sleep:: Denies cough and shortness of breath. Denies hemoptysis or excessive s putum production. Denies snoring, orthopnea, PND. Cardiovascular:hx embolectomy to right leg 2011 , chronic swelling right leg. Denies chest pain, palpitations.Denies history of rheumatic fever. Denies claudication . Gastrointestinal: Denies history of gastroesophageal reflux disease . Denies nausea, vomi ting, abdominal pain and blood in stool. Genitourinary: Denies hematuria. Musculoskeletal: hx lower back pain, arthritis to shoulders Denies myalgias, ambulates wit h walker Skin: Denies color change. Denies rash or lesions Neurological: hx of neuropathy to feet . Denies history of stroke/Transient ischemic attac k.Denies history of seizures. Denies dizziness, syncope and numbness. Denies focal motor de ficits Hematological: Does not bruise/bleed easily. Denies history of cancer Endocrine: Hx diabetes and thyroid disease. Denies excessive thirst or hunger Psychiatric/Behavioral:Hx depression, controlled with medications (Remeron) Vaccines: Current on 2017 flu vaccine. Current on pneumonia vaccines. Habits/Social : Denies history of smoking. Rare glass of red wine Drinks 3-4 servings of caffeine weekly . Denies illicit drug use. Exercises with walking , 200 feet, and tolerate s. Outpatient Medications Prior to Visit Medication Sig Dispense Refill atorvastatin (LIPITOR) 80 MG tablet Take 80 mg by mouth nightly. Cholecalciferol (VITAMIN D3) 2000 UNITS TABS Take 1 tablet by mouth daily. ferrous sulfate, 65 FE, 324 (65 Fe) MG EC tablet Take 65 mg of iron by mouth daily with breakfast. folic acid (EQL FOLIC ACID) 400 MCG tablet Take 400 mcg by mouth daily. glimepiride (AMARYL) 4 MG tablet Take 4 [...] 2 (two) times daily.) 5 capsule 0 mirtazapine (REMERON) 15 MG tablet Take 15 [...] cream Apply topically 2 (two) times daily. clopidogrel (PLAVIX) 75 MG tablet Take 1 tablet by mouth daily. (Patient not taking: Re ported on 10/09/2017) 30 tablet 5 HYDROcodone-acetaminophen (NORCO) 5-325 MG per tablet Take 1 tablet by mouth every 6 (s ix) hours as needed for Pain. Rarely takes metoprolol (LOPRESSOR) 25 MG tablet Take 1 tablet by mouth 2 (two) times daily. 60 tabl et 11 pantoprazole (PROTONIX) 40 MG tablet Take 40 mg by mouth every morning before breakfast . No facility-administered medications prior to visit. PHYSICAL EXAM: Wt Readings from Last 3 Encounters: 11/20/17 66.8 kg (147 lb 3.2 oz) 10/09/17 70.2 kg (154 lb 11.2 oz) 08/21/17 66.1 kg (145 lb 11.2 oz) Temp Readings from Last 3 Encounters: 10/09/17 97.2 F (36.2 C) (Temporal) 08/21/17 97.2 F (36.2 C) (Temporal) 02/23/17 97.8 F (36.6 C) (Oral) BP Readings from Last 3 Encounters: 11/20/17 148/76 10/09/17 172/81 08/21/17 120/80 Pulse Readings from Last 3 Encounters: 11/20/17 66 10/09/17 88 08/21/17 65 GENERAL: Well developed, well nourished, in no distress. Appears approximately stated age . HEENT: Normocephalic, atraumatic. Diminished hearing , chronic left sided facial droop EYES: PERRL, EOM normal. MOUTH: Oral mucosae moist, dentition adequate, no lesions noted NECK: No JVD, lymphadenopathy, thyromegaly, bruits. Carotid pulses are 2+ bilaterally LUNGS: Kyphotic, clear to auscultation. No rhonchi or wheezing noted, respirations unlabor ed HEART: Nondisplaced PMI, irregularly irregular Rhythm, controlled rate. S1, S2 normal. 2 /6 GIACOMO , RUSB No rubs or gallops noted. ABDOMEN: Soft, nontender, no organomegaly, masses or bruits. Bowel sounds are normal in a ll 4 quadrants. The abdominal aortic pulsation is not palpable. EXTREMITIES: Bilateral 1+ nonpitting Pedal edema, wearing compression stocking Radial p ulses 2+ bilaterally. Femoral pulses are 1+ bilaterally without bruits. DP and PT pulses a re 1+ bilaterally. No clubbing. SKIN: Warm and dry, capillary refill is normal,erythematous papules to chest, elbows, betw een fingers NEUROLOGIC: Awake, alert and oriented x 3. No focal motor deficits. PSYCHIATRIC: Appropriate, affect appears normal DATA: Blood tests: Lab Results Component Value Date WBC 6.7 10/09/2017 WBC 6.7 10/09/2017 RBC 3.21 (A) 10/09/2017 RBC 3.21 (A) 10/09/2017 HGB 9.1 (A) 10/09/2017 HGB 9.1 (A) 10/09/2017 HCT 28.1 (A) 10/09/2017 HCT 28.1 (A) 10/09/2017 PLT 282 10/09/2017 PLT 282 10/09/2017 Lab Results Component Value Date NA 133 10/09/2017 NA 133 10/09/2017 K 4.6 10/09/2017 K 4.6 10/09/2017 CL 98 10/09/2017 CL 98 10/09/2017 CO2 22 10/09/2017 CO2 22 10/09/2017 ANIONGAP 17.6 10/09/2017 ANIONGAP 17.6 10/09/2017 GLUF 293 (A) 10/09/2017 GLUF 293 (A) 10/09/2017 BUN 28 (A) 10/09/2017 BUN 28 (A) 10/09/2017 CREATININE 1.50 (A) 10/09/2017 CREATININE 1.50 (A) 10/09/2017 BCR 18.7 10/09/2017 BCR 18.7 10/09/2017 CA 9.1 10/09/2017 CA 9.1 10/09/2017 EGFR 33 (A) 10/09/2017 EGFR 33 (A) 10/09/2017 Lab Results Component Value Date CHOL 113 02/22/2017 TRIG 145 02/22/2017 LDL 44 02/22/2017 GLUF 293 (A) 10/09/2017 GLUF 293 (A) 10/09/2017 HGBA1C 7.9 (H) 02/22/2017 Lab Results Component Value Date BNP 244 (A) 07/11/2017 CKTOTAL 76 09/28/2012 TSH 2.80 09/30/2012 No results found for: METF, NMETFX, TFNMFX, [id number], [id number], TOTEPI EKG: EK02/22/2017: Atrial fibrillation, low voltage QRS. Rate 67 bpm, QRS 104 ms, QTC 464 ms, EK2016: Atrial fibrillation. ST depression in V5-V6, rate 76 bpm, QRS 114 ms, QTC 454 ms EK06/02: Atrial fibrillation, ST abnormalities to inferior and lateral leads, improv ed. Rate 69 bpm, QRS 114 ms, QTC 460 ms. EK2016: Atrial fibrillation with slow ventricular response. Rate 55 bpm, QRS 118 ms, QTC 420 ms, T-wave inversions to V5, V6 EK2016: Atrial fibrillation slow ventricular response. T-wave inversion new to V5 and V6 and decreased QRS voltage limb leads with ST flattening in inferior leads. Rate 55 bpm, QRS 118 ms, QTC 420 ms 2 week event monitor: 06/22/2017: only atrial fib with fastest heart rate of 128 bpm , and averaging 80 bpm, and rare PAC's or PVC's, and no pauses or blocks, or other arrhythmia , a nd no patient triggered events. EK2016:([facility]) trial fib, old septal infarct, rate 94 bpm, QRS 106 ms, QTC 450 m s, personally reviewed by me ECHO: Last Echo: 2016. EF 40-45 percent. Mild RVE with normal systolic function. Severe b i atrial enlargement. Moderate aortic stenosis with peak/mean pressure gradient of 13.16 mm Hg / 5.93 mmHg, the aortic valve area by continuity equation is 1.4cm.. Mild MR .mode rate TR .Mild pulmonary hypertension. RVSP 48.3. Minor changes since done in 2016 Echo: 02/21/2017: EF 40 - 45 %. Severe RVE. Bilateral atrial enlargement. moderate aorti c stenosis present, aortic valve area by continuity equation is 1.1cm Moderate mitral regurgitation is present. Moderate tricuspid regurgitation present. moderate pulmonary hype rtension, RVSP 52.20 mmHg IMAGING: Carotid US: 2016 LICA: 50-69 percent stenosis. Low peak systolic velocity for distal right common carotid artery, possibility of proximal stenosis near the origin. Limited eval uation of the mid and distal right internal carotid artery due to heavy atherosclerotic calc ification. (CT angiography was recommended for further evaluation) Lower extremity US: 02/21/2017:Negative for right lower extremity DVT, although the calf vei ns were poorly visualized. 01/23/2017:([facility]) Nondiagnostic ankle-brachial indices due to severely calcified barrios. Oc cluded bilateral posterior tibial arteries. Moderately diminished left toe brachial index. Chest x-ray 6 2016: ([facility]). Report only: normal pulmonary vasculature. N o pleural effusion. No edema or consolidation. Parenchymal scarring to the left lateral lo wer chest. Enlarged cardiomediastinal silhouette. Chest x-ray: 2016: ([facility]). Interstitial thickening lower lungs bilateral ly, large silhouette. No effusions, pulmonary vasculature normal LABS: Labs: 06/02:([facility]) WBC 7.2, hemoglobin 13.5, hematocrit 41.3, platelets 163, glucose 164 , creatinine 1.46, GFR 33, sodium 131, potassium 4.4, chloride 93, CO2 27, calcium 10.8,]LIP IDS: cholesterol 159, HDL 57, non-HDL cholesterol 102, LDL 79, ratio 2.8, triglycerides 114. Total bilirubin 0.6, AST 23, ALT 22, alk phos 93, TSH 2.05, free T4 1 0.51, free T3 1 0.83 Labs: 07/11/2017: NA 127, K 4.6,CL 90 ,GL 103, BUN 48, Cr 1.55, GFR 31 ,AST 23,ALT16, ALK PHOS 86 , and BNP of 244 Labs: 08/14/2017: BMP: Gl 183, BUN 73, Cr 2.05, GFR 23.Na 132, K 4.1, Cl 95, CO2 25. CBC: W BC 6.6, Hgb 12.3, Hct 36.9, Plt 176, Mg 1.9 10/01/2017: ([facility]): CMP: Sodium 127, potassium 3.8, chloride 95, BUN 50, creat inine 1. 0.7, GFR 31, glucose 214, calcium 9.3, total bilirubin 0.6, AST 23, ALT 11, alk dickson s 65, troponin T 0.041. Albumin 3.5. CBC: WBC 9.4, RBC 2.25, hemoglobin 6.8, hematocrit 19 .5, platelets 244 Labs: 2016: ([facility]): CBC: WBC 9.8, hemoglobin 10.6, hematocrit 31.5, plat elets 251. CMP: Glucose 196, BUN 32, creatinine 1.4, GFR 35, sodium 129, potassium 4.3, chl oride 94, calcium 10.1, albumin 4, total bilirubin 0.8, AST 24, ALT 15, alk phos 103 ASSESSMENT & PLAN: She was here today for follow-up after being hospitalized twice in September with chest pa in secondary to anemia from GI bleed , and likely STEMI. She seems well recovered today and in moving well and denies any chest pain or problems, b ut her blood pressure remains elevated above 140 and in the 140-1 60 mmHg range on her home blood pressure log. I reviewed all of her medications today and noted the numerous changes since I saw her las t from both Dr. Zuniga and Dr. Sanchez. Her heart rate and ventricular response currently controlled with metoprolol succinate 5 0 mg bid, which I had previously had her own prior to her developing bradycardia, but her bl ood pressure is still elevated and she may benefit from being on carvedilol 12.5-25 mg bid f or better blood pressure control, instead of metoprolol succinate, and also less chance of bradycardia. She remains off aspirin and Plavix due to ongoing problems with GI bleed, which is unfortu lorena, but I think the best we can do hs control her heart rate and blood pressure, she does not seem to tolerate any platelet inhibitors, or anticoagulation. I did not change any medications today, but will discuss this with Dr. Sanchez, and also so me suggestion to her PCP, Dr. Zuniga, as I think it is confusing to have 3 different provide rs changing medications. From a cardiac point of view ,she should continue atorvastatin 80 mg Isordil 20 mg tid, li sinopril 10 mg daily, magnesium 400 mg bid for low magnesium, metoprolol succinate 50 mg bid , but consider changing to carvedilol 12.5-25 mg bid, potassium 10 mEq bid, and Demadex 10 Mg daily. I have ordered a CMP and lipid panel to be done the next time she needs labs drawn, and w ill see her back in 3 months , but sooner if needed 1. Persistent atrial fibrillation (HCC) 2. History of non-ST elevation myocardial infarction (NSTEMI) 3. Chronic systolic congestive heart failure (HCC) 4. Transient cerebral ischemia, unspecified type 5. Type 2 diabetes mellitus with diabetic peripheral angiopathy without gangrene, without l justin-term current use of insulin (HCC) 6. CKD (chronic kidney disease) stage 3, GFR 30-59 ml/min 7. Mixed hyperlipidemia Orders Placed This Encounter Procedures Comprehensive metabolic panel Lipid panel The following portions of the patient's history were personally reviewed by me and updated as appropriate: EKG tracings, other specialty provider and PCP notes, any ER records , any admission and di scharge records, current and previous cardiac testing and procedure reports and data, home b lood pressure and heart rate log, medication bottles brought to the clinic reviewed by me Allergies, current medications.labs Family history, past medical history, past social history, past surgical history. Problem list. SARINA Sanchez [facility] 11/20/2017in this encounter Plan of Treatment +--------+---------+ + + + | Date | Type | Specialty | Care Team | Description | +--------+---------+ + + + | 03/22/ | Office | Cardiology | Kristina Soria | | | 2017 | Visit | | [address] | | | | | | [address] | | | | | | [place] [address] | | | | | | [phone] | | | | | | | | +--------+---------+ + + + + +--------+ + + | Name | Priori | Associated Diagnoses | Order Schedule | | | ty | | | + +--------+ + + | Comprehensive metabolic panel | Routin | Persistent atrial | Expected: | | | e | fibrillation (HCC) | 11/20/2017, Expires: | | | | History of non-ST | 11/20/2018 | | | | elevation myocardial | | | | | infarction (NSTEMI) | | | | | Chronic systolic | | | | | congestive heart | | | | | failure (HCC) | | | | | Transient cerebral | | | | | ischemia, | | | | | unspecified type | | | | | Type 2 diabetes | | | | | mellitus with | | | | | diabetic 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| angiopathy without | | | | | gangrene, without | | | | | long-term current | | | | | use of insulin (HCC) | | | | | CKD (chronic | | | | | kidney disease) | | | | | stage 3, GFR 30-59 | | | | | ml/min | | + +--------+ + + | Lipid panel | Routin | History of non-ST | Expected: | | | e | elevation myocardial | 11/20/2017, Expires: | | | | infarction (NSTEMI) | 11/20/2018 | | | | Type 2 diabetes | | | | | mellitus with | | | | | diabetic 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| angiopathy without | | | | | gangrene, without | | | | | long-term current | | | | | use of insulin (HCC) | | + +--------+ + + as of this encounter Visit Diagnoses + + | Diagnosis | + + | Persistent atrial fibrillation (HCC) - Primary | + + | Atrial fibrillation | + + | History of non-ST elevation myocardial infarction (NSTEMI) | + + | Old myocardial infarction | + + | Chronic systolic congestive heart failure (HCC) | + + | Chronic systolic heart failure | + + | Transient cerebral ischemia, unspecified type | + + | Type 2 diabetes mellitus with diabetic peripheral angiopathy without gangrene, without | | long-term current use of insulin (HCC) | + + | CKD (chronic kidney disease) stage 3, GFR 30-59 ml/min | + + | Chronic kidney disease, Stage III (moderate) | + + | Mixed hyperlipidemia | + +
--- OUTSIDE RECORDS SUMMARY | ~2018-02-06 | XMS | Encounter Summary ---
Demographics + + + | Address | [address] | | | [place] [address] | + + + | Home Phone | | + + + | Preferred Language | Unknown | + + + | Marital Status | | + + + | Hindu Affiliation | 1073 | + + + | Race | Unknown | + + + | Ethnic Group | Unknown | + + + Author + + + | Author | [facility] | + + + | Organization | [facility] | + + + | Address | Unknown | + + + | Phone | Unavailable | + + + Support + + + + + | Name | Relationship | Address | Phone | + + + + + | Hardy Whitlock | KARINE | [place] | | | "In-Law" | | [phone] | | + + + + + | Abhishek Whitlock | ECON | [place] | | | | | [address] | | + + + + + | Iris Whitlock | ECON | [place] | | | | | [address] | | + + + + + Care Team Providers + +------+ + | Care Engine Turner Name | Role | Phone | + +------+ + | Sebastian Chua DO | PCP | | + +------+ + Reason for Visit +--------+ + | Reason | Comments | +--------+ + | Other | [facility] 10/27/2017 notes | +--------+ + Encounter Details +--------+ + + + + | Date | Type | Department | Care Team | Description | +--------+ + + + + | 11/20/ | Documentati | [facility]ENNA Bell | Mine Watters MA | Other ([facility] | | 2018 | on Only | Cardiology [place] | | ER 10/27/2017 notes) | | | | [address] | | | | | | [facility] [address] | | | | | | [place] [address] | | | | | | [phone] | | | +--------+ + + + [...] [address] | | | | | | [place] [address] | | | | | | [phone] | | | | | | | | +--------+---------+ + + + as of this encounter Visit Diagnoses Not on filein this encounter
--- OUTSIDE RECORDS SUMMARY | ~2018-02-06 | XMS | Encounter Summary ---
Demographics + + + | Address | [address] | | | [place] [address] | + + + | Home Phone | | + + + | Preferred Language | Unknown | + + + | Marital Status | | + + + | Baptist Affiliation | 1073 | + + + | Race | Unknown | + + + | Ethnic Group | Unknown | + + + Author + + + | Author | [facility] | + + + | Organization | [facility] | + + + | Address | Unknown | + + + | Phone | Unavailable | + + + Support + + + + + | Name | Relationship | Address | Phone | + + + + + | Hardy Whitlock | KARINE | [place] | | | "In-Law" | | [address] | | + + + + + | Abhishek Whitlock | ECON | [place] | | | | | [address] | | + + + + + | Iris Whitlock | ECON | [place] | | | | | [address] | | + + + + + Care Team Providers + +------+ + | Care Critical Care Nurse Specialist Name | Role | Phone | + [...] | [facility]) | | | | [place], [place] | | | | | | [address] | | | | | | [phone] | | | +--------+ + + + [...] Jacobs | | | | | | [place] [address] | | | | | | [phone] | | | | | | | | +--------+---------+ + + + as of this encounter Visit Diagnoses Not on filein this encounter
--- OUTSIDE RECORDS SUMMARY | ~2018-02-06 | XMS ---
Demographics + + + | Address | [address] | | | [address] | | | [place] [address] | + + + | Preferred Language | Unknown | + + + | Marital Status | Unknown | + + + | Sikh Affiliation | Unknown | + + + | Race | Unknown | + + + | Ethnic Group | Unknown | + + + Author + + + | Author | [facility] | + + + | Organization | [facility] | + + + | Address | 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 | | | hyperlipid | | | | | | | | emia | | | | | | +---------+ + + +--------+ + + | Problem | Iron | D50.0 | | | Active | 497928787 | | | deficiency | | | [...] | E11.65 | | | Active | [id number] | | | diabetes | | | | | [address] | | | mellitus | | | | | | | | with | | | | | | | | hyperglyce | | | | | | | | carmen | | | | | | +---------+ + + +--------+ + + | Problem | Murmur | 785.2 | | | Active | 644462214 | +---------+ + + +--------+ + + | Problem | CKD | N18.3 | | | Active | 919746517 | | | (chronic | | | | | | | | kidney | | | | | | | | disease), | | | | | | | | stage III | | | | | | +---------+ + + +--------+ + + | Problem | Dysthymia | F34.1 | | | Active | 36984327 | +---------+ + + +--------+ + + | Problem | 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.9 | | | Active | 630986073 | | | hypothyroi | | | | | | | | dism | | | | | | +---------+ + + +--------+ + + | Problem | Angina at | | I20.8 | | Active | 02794601 | | | rest | | | | | | +---------+ + + +--------+ + + | Problem | 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 | | Active | 96890782 | | | (arteriosc | | | | | | | | lerotic | | | | | | | | heart | | | | | | | | disease) | | | | | | +---------+ + + +--------+ + + | Problem | Chronic | | I48.2 | | Active | 688316183 | | | atrial | | | | | | | | fibrillati | | | | | | | | on | | | | | | +---------+ + + +--------+ + + | Problem | Chronic | | Z79.01 | | Active | 021798040 | | | anticoagul | | | | | | | | ation | | | | | | +---------+ + + +--------+ + + | Problem | 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 | | Active | 073218462 | | | vascular | | | | | | | | disease | | | | | | +---------+ + + +--------+ + + | Problem | Hypertensi | I11.9 | | | Active | 57948412 | | | ve | | | [...]
--- OUTSIDE RECORDS SUMMARY | ~2018-02-06 | XMS | Encounter Summary ---
Demographics + + + | Address | [address] | | | [place] [address] | + + + | Home Phone | | + + + | Preferred Language | Unknown | + + + | Marital Status | | + + + | Adventism Affiliation | 1073 | + + + | Race | Unknown | + + + | Ethnic Group | Unknown | + + + Author + + + | Author | [facility] | + + + | Organization | [facility] [facility] | + + + | Address | Unknown | + + + | Phone | Unavailable | + + + Support + + + + + | Name | Relationship | Address | Phone | + + + + + | Hardy Whitlock | KARINE | [place] | | | "In[place]Law" | | [address] | | + + + + + | Abhishek Whitlock | ECON | [place] | | | | | [address] | | + + + + + | Iris Whitlock | ECON | [place] | | | | | [address] | | + + + + + Care Team Providers + +------+ + | Care Agricultural Education Instructor Name | Role | Phone | + [...] | | | | | [place] [address] | | | | | | [phone] | | | +--------+ + + + [...] | | | | | [place] [address] | | | | | | [phone] | | | | | | | | +--------+---------+ + + + as of this encounter Visit Diagnoses Not on filein this encounter
--- OUTSIDE RECORDS SUMMARY | ~2018-02-06 | XMS | Encounter Summary ---
Demographics + + + | Address | [address] | | | [place] [address] | + + + | Home Phone | | + + + | Preferred Language | Unknown | + + + | Marital Status | | + + + | Zoroastrian Affiliation | 1073 | + + + | Race | Unknown | + + + | Ethnic Group | Unknown | + + + Author + + + | Author | [facility] | + + + | Organization | [facility] [employer] [facility] | + + + | Address | Unknown | + + + | Phone | Unavailable | + + + Support + + + + + | Name | Relationship | Address | Phone | + + + + + | Hardy Whitlock | KARINE | [place] | | | "[place]Law" | | [address] | | + + + + + | Abhishek Whitlock | ECON | [place] | | | | | [address] | | + + + + + | Iris Whitlock | ECON | [place] | | | | | [address] | | + + + + + Care Team Providers + +------+ + | Care Printed Circuit Board Assembler Name | Role | Phone | + [...] | | [address] | [address] [place], [place] | GFR 30-59 ml/min | | | | [address] [place], [place] | [phone] | (Primary Dx); | | | | [...] intact PTH, uric acid, urinalysis, Urine total caisjdr-nq-ephx tinine ratio before she comes back in [...] intact PTH, uric acid, urinalysis, Urine total hctzure-xb-xzqt tinine ratio before she comes back in 6 months. I spent 15 minutes of this 25-minute visit in education, counseling and answering all of her questions to her satisfaction. Thank you Dr Chua for the opportunity to see this patient in F/U today. Please do not hes itate to call me at any time with questions or concerns. Truly yours, Chiki Sanchez MD [facility] in this encounter Plan of Treatment +--------+---------+ + + + | Date | Type | Specialty | Care Team | Description | +--------+---------+ + + + | 03/22/ | Office | Cardiology | Kristina Soria | | | 2017 | Visit | | [address] | | | | | | [place] | | | | | | [place] [address] | | | | | | [phone] | | | | | | | [...]
--- OUTSIDE RECORDS SUMMARY | ~2018-02-06 | XMS | Encounter Summary ---
Demographics + + + | Address | [address] | | | [place] [address] | + + + | Home Phone | | + + + | Preferred Language | Unknown | + + + | Marital Status | | + + + | Hindu Affiliation | 1073 | + + + | Race | Unknown | + + + | Ethnic Group | Unknown | + + + Author + + + | Author | [facility] | + + + | Organization | [facility] [employer] [facility] | + + + | Address | Unknown | + + + | Phone | Unavailable | + + + Support + + + + + | Name | Relationship | Address | Phone | + + + + + | Hardy Whitlock | KARINE | [place] | | | "[place]Law" | | [address] | | + + + + + | Abhishek Whitlock | ECON | [place] | | | | | [address] | | + + + + + | Iris Whitlock | ECON | [place] | | | | | [address] | | + + + + + Care Team Providers + +------+ + | Care Counseling Center Director Name | Role | Phone | + +------+ + | Sebastian Chua DO | PCP | | + +------+ + Reason for Visit +--------+ + | Reason | Comments | +--------+ + | Other | 10/01/2017: [facility] | +--------+ + Encounter Details +--------+ + + + + | Date | Type | Department | Care Team | Description | +--------+ + + + + | 11/20/ | Documentati | [facility] | Mine Watters MA | Other (10/01/2017: | | 2018 | on Only | [facility] [place] | | [facility] | | | | [address] | | Consultation) | | | | [facility] [address] | | | | | | [place] [address] | | | | | | [phone] | | | +--------+ + + + [...] Jacobs | | | | | | [place] [address] | | | | | | [phone] | | | | | | | | +--------+---------+ + + + as of this encounter Visit Diagnoses Not on filein this encounter
--- OUTSIDE RECORDS SUMMARY | ~2018-02-06 | XMS | Encounter Summary ---
Demographics + + + | Address | [address] | | | [place] [address] | + + + | Home Phone | | + + + | Preferred Language | Unknown | + + + | Marital Status | | + + + | Anglican Affiliation | 1073 | + + + | Race | Unknown | + + + | Ethnic Group | Unknown | + + + Author + + + | Author | [facility] [employer] | + + + | Organization | [facility] [employer] [facility] | + + + | Address | Unknown | + + + | Phone | Unavailable | + + + Support + + + + + | Name | Relationship | Address | Phone | + + + + + | Hardy Whitlock | KARINE | [place] | | | "[place]Law" | | [address] | | + + + + + | Abhishek Whitlock | ECON | [place] | | | | | [address] | | + + + + + | Iris Whitlock | ECON | [place] | | | | | [address] | | + + + + + Care Team Providers + +------+ + | Care Grid Molder Name | Role | Phone | + [...] 01/11/2018) | | | | [place] [address] | | | | | | [phone] | | | +--------+ + + + [...] Jacobs | | | | | | [place] [address] | | | | | | [phone] | | | | | | | | +--------+---------+ + + + as of this encounter Visit Diagnoses Not on filein this encounter
--- OUTSIDE RECORDS SUMMARY | ~2018-02-06 | XMS | Encounter Summary ---
Demographics + + + | Address | [address] | | | [place] [address] | + + + | Home Phone | | + + + | Preferred Language | Unknown | + + + | Marital Status | | + + + | Tenriism Affiliation | 1073 | + + + | Race | Unknown | + + + | Ethnic Group | Unknown | + + + Author + + + | Author | [facility] [employer] | + + + | Organization | [facility] [employer] [facility] | + + + | Address | Unknown | + + + | Phone | Unavailable | + + + Support + + + + + | Name | Relationship | Address | Phone | + + + + + | Hardy Whitlock | KARINE | [place] | | | "[place]" | | [address] | | + + + + + | Abhishek Whitlock | ECON | [place] | | | | | [address] | | + + + + + | Iris Whitlock | ECON | [place] | | | | | [address] | | + + + + + Care Team Providers + +------+ + | Care Mother Baby Rn Name | Role | Phone | + +------+ + | Sebastian Chua DO | PCP | | + +------+ + Encounter Details +--------+ + + + + | Date | Type | Department | Care Team | Description | +--------+ + + + + | 01/12/ | Orders Only | [facility] | Serenity Quesada CMA | Type 2 diabetes | | 2017 | | [place] [address] | | mellitus with | | | | [address] | | diabetic 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[place], [place] [address] | | angiopathy without | | | | [phone] | | gangrene, without | | | | | | long-term current | | | | | | use of insulin | | | | | | ([facility]); CKD (chronic | | | | | | kidney disease) | | | | | | stage 3, GFR 30-59 | | | | | | ml/min; | | | | | | Microalbuminuria; | | | | | | Hyperuricemia; | | | | | | 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 | | | | | | ([facility]); | | | | | | Hypothyroidism, | | | | | | unspecified type; | | | | | | Iron deficiency | | | | | | anemia, unspecified | | | | | | iron deficiency | | | | | | anemia type; | | | | | | Idiopathic chronic | | | | | | gout of right foot | | | | | | without tophus | +--------+ + + + + Social [...] Jacobs | | | | | | [place] [address] | | | | | | [phone] | | | | | | | | +--------+---------+ + + + as of this encounter Results Uric acid (01/11/2018 7:43 AM) + +---------+ + | Component | Value | Ref Range | + +---------+ + | URIC ACID | 6.9 (A) | 2.3 - 6.6 | + +---------+ + + + + | Specimen | Performing Laboratory | + + + | Blood | [facility] [address] | | | [address] | + + + Protein / creatinine ratio, urine (01/11/2018 7:43 AM) + + + + | Component | Value | Ref Range | + + + + | UR | 243.9 (A) | 0 - 150 | | PROTEIN/CREATININE | | | + + + + + + + | Specimen | Performing Laboratory | + + + | Urine - Urine, | [facility] [address] [facility] [address] [place], [place] | | Unspecified Source | [id number] | + + + Renal function panel (01/11/2018 7:43 AM) + + + + | Component | Value | Ref Range | + + + + | GLUCOSE | 139 (A) | 70 - 100 mg/dL | + + + + | BUN | 45 (A) | 6 - 23 mg/dL | + + + + | CREATININE | 1.52 (A) | 0.7 - 1.11 mg/dL | + + + + | PHOSPHORUS | | mg/dL | + + + + | Albumin | 4.1 | 3.5 - 5.0 | + + + + | SODIUM | 133 | 132 - 143 mmol/L | + + + + | POTASSIUM | 4.8 | 3.6 - 5.1 mmol/L | + + + + | CHLORIDE | 97 | 95 - 112 mmol/L | + + + + | CO2 | 27 | 19 - 31 mmol/L | + + + + | ANION GAP AGAP | 13.8 | 7 - 21 mmol/L | + + + + | GFR MDRD Non Af Amer | | | + + + + | Phosphorus,Inorganic | 4.2 | 2.5 - 5.0 | + + + + | BUN/CREAT | 29.6 (A) | 6.0 - 28.6 | + + + + | CALCIUM | 10.3 (A) | 8.4 - 10.2 mg/dL | + + + + | EGFR | 32 (A) | 60 mg/dL | + + + + + + + | Specimen | Performing Laboratory | + + + | Blood | [facility] [address] [place] [address] [place] | | | [address] | + + + CBC W/Auto Diff (Reflex to Manual) (01/11/2018 7:43 AM) + + + + | Component | Value | Ref Range | + + + + | WBC | 6.2 | 4.5 - 11.0 10^3/mL | + + + + | RBC | 4.33 | 3.8 - 5.1 10^6/ L | + + + + | HGB | 11.2 (A) | 12 - 16 g/dL | + + + + | HCT | 34.9 (A) | 35 - 45 % | + + + + | MCV | 80.6 (A) | 81 - 99 fL | + + + + | MCH | 26 (A) | 27 - 33 pg | + + + + | MCHC | 32 | 30 - 36 g/dL | + + + + | PLT | 206 | 140 - 440 K/ L | + + + + | RDW SD | 16.8 (A) | 10.5 - 15.0 % | + + + + | MPV | | fL | + + + + | DIFF TYPE | | | + + + + | NEUTROPHILS | | % | + + + + | LYMPHOCYTES | | % | + + + + | MONOCYTES | | % | + + + + | EOSINOPHILS | | % | + + + + | BASOPHILS | | % | + + + + | NEUTROPHILS ABS | | / L | + + + + | LYMPHOCYTES ABS | | / L | + + + + | MONOCYTES ABS | | / L | + + + + | EOSINOPHILS ABS | | / L | + + + + | BASOPHILS ABS | | / L | + + + + + + + | Specimen | Performing Laboratory | + + + | Blood | [facility] [address] [place] | | | [address] | + + + PTH intact no calcium (01/11/2018 7:43 AM) + +-------+ + | Component | Value | Ref Range | + +-------+ + | PTH INTACT NO | 60.51 | 15 - 65 pg/mL | | CALCIUM | | | + +-------+ + + + + | Specimen | Performing Laboratory | + + + | Blood | [facility] [address] [place] [address] | | | [address] | + + + in this encounter Visit Diagnoses + + | Diagnosis | + + | Type 2 diabetes mellitus with diabetic peripheral angiopathy without gangrene, without | | long-term current use of insulin (HCC) | + + | CKD (chronic kidney disease) stage 3, GFR 30-59 ml/min | + + | Chronic kidney disease, Stage III (moderate) | + + | Microalbuminuria | + + | Proteinuria | + + | Hyperuricemia | + + | Other abnormal blood chemistry | + + | Secondary hyperparathyroidism (HCC) | + + | Secondary hyperparathyroidism (of renal origin) | + + | Hypothyroidism, unspecified type | + + | Iron deficiency anemia, unspecified iron deficiency anemia type | + + | Idiopathic chronic gout of right foot without tophus | + +
--- OUTSIDE RECORDS SUMMARY | ~2018-02-06 | XMS | Encounter Summary ---
Demographics + + + | Address | [address] | | | [place] [address] | + + + | Home Phone | | + + + | Preferred Language | Unknown | + + + | Marital Status | | + + + | Mormonism Affiliation | 1073 | + + + | Race | Unknown | + + + | Ethnic Group | Unknown | + + + Author + + + | Author | [facility] | + + + | Organization | [facility] [employer] [facility] | + + + | Address | Unknown | + + + | Phone | Unavailable | + + + Support + + + + + | Name | Relationship | Address | Phone | + + + + + | Hardy Whitlock | KARINE | [place] | | | "[place]" | | [address] | | + + + + + | Abhishek Whitlock | ECON | [place] | | | | | [address] | | + + + + + | Iris Whitlock | ECON | [place] | | | | | [address] | | + + + + + Care Team Providers + +------+ + | Care Paper Feeder Name | Role | Phone | + [...] | | | | | [place], [place] [address] | | | | | | [phone] | | | +--------+ + + + [...] | | | | | [place] [address] | | | | | | [phone] | | | | | | | | +--------+---------+ + + + as of this encounter Visit Diagnoses Not on filein this encounter
--- OUTSIDE RECORDS SUMMARY | ~2018-02-06 | XMS ---
Demographics + + + | Address | [address] | | | [address] | | | [place] [address] | + + + | Preferred Language | Unknown | + + + | Marital Status | Unknown | + + + | Zoroastrianism Affiliation | Unknown | + + + | Race | Unknown | + + + | Ethnic Group | Unknown | + + + Author + + + | Author | [facility] | + + + | Organization | [facility] | + + + | Address | [address] | | | [place] [address] | + + + | Phone | | + + + Care Team Providers + + + + | Care Signal Maintainer Helper Name | Role | Phone | + + + + Unavailable | Unavailable | + + + + PROBLEMS +---------+ + + +--------+ + + | Type | Condition | ICD9-CM | HNE48-PS | Onset | Condition | SNOMED | | | | Code | Code | Dates | Status | Code | +---------+ + + +--------+ + + | Problem | 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.9 | | | Active | [id number] | | | hypothyroi | | | | | | | | dism | | | | | | +---------+ + + +--------+ + + | Problem | Type 2 | E11.65 | | | Active | [id number] | | | diabetes | | | | | [address] | | | mellitus | | | | | | | | with | | | | | | | | hyperglyce | | | | | | | | carmen | | | | | | +---------+ + + +--------+ + + | Problem | 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 | | Active | 983824542 | | | hyperlipid | | | | | | | | emia | | | | | | +---------+ + + +--------+ + + | Problem | Murmur | 785.2 | | | Active | 115053081 | +---------+ + + +--------+ + + | Problem | CKD | N18.3 | | | Active | 298575147 | | | (chronic | | | | | | | | kidney | | | | | | | | disease), | | | | | | | | stage III | | | | | | +---------+ + + +--------+ + + | Problem | Dysthymia | F34.1 | | | Active | 77853754 | +---------+ + + +--------+ + + | Problem | 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 | | Active | 20687093 | | | (arteriosc | | | | | | | | lerotic | | | | | | | | heart | | | | | | | | disease) | | | | | | +---------+ + + +--------+ + + | Problem | 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 | | Active | 278819942 | | | vascular | | | | | | | | disease | | | | | | +---------+ + + +--------+ + + | Problem | Chronic | | Z79.01 | | Active | 803167122 | | | anticoagul | | | | | | | | ation | | | | | | +---------+ + + +--------+ + + | Problem | Iron | D50.0 | | | Active | 554388911 | | | deficiency | | | [...] | I11.9 | | | Active | 39969556 | | | ve | | | [...] | | I48.2 | | Active | 974118939 | | | atrial | | | [...]
--- OUTSIDE RECORDS SUMMARY | ~2018-02-06 | XMS | Encounter Summary ---
Demographics + + + | Address | [address] | | | [place] [address] | + + + | Home Phone | | + + + | Preferred Language | Unknown | + + + | Marital Status | | + + + | Episcopalian Affiliation | 1073 | + + + | Race | Unknown | + + + | Ethnic Group | Unknown | + + + Author + + + | Author | [facility] | + + + | Organization | [facility] [employer] [facility] | + + + | Address | Unknown | + + + | Phone | Unavailable | + + + Support + + + + + | Name | Relationship | Address | Phone | + + + + + | Hardy Whitlock | KARINE | [place] | | | "[place]" | | [address] | | + + + + + | Abhishek Whitlock | ECON | [place] | | | | | [address] | | + + + + + | Iris Whitlock | ECON | [place] | | | | | [address] | | + + + + + Care Team Providers + +------+ + | Care Clerical Production Worker Name | Role | Phone | + [...] 11/27/2017-01/16/2018) | | | | [place], [place] [address] | | | | | | [phone] | | | +--------+ + + + [...] | | | | | [place] [address] | | | | | | [phone] | | | | | | | | +--------+---------+ + + + as of this encounter Visit Diagnoses Not on filein this encounter
--- OUTSIDE RECORDS SUMMARY | ~2018-02-06 | XMS | Encounter Summary ---
Demographics + + + | Address | [address] | | | [place] [address] | + + + | Home Phone | | + + + | Preferred Language | Unknown | + + + | Marital Status | Unknown | + + + | Taoist Affiliation | Unknown | + + + | Race | Unknown | + + + | Ethnic Group | Unknown | + + + Author + + + | Author | [facility] | | | and [place] | + + + | Organization | [facility] | | | and [place] | + + + | Address | Unknown | + + + | Phone | Unavailable | + + + Care Team Providers + +------+ + | Care Architectural Inspector Name | Role | Phone | + +------+ + | Joel Joeyrene Golden | PCP | | | MD | | | + +------+ + Reason for Visit + + + | Reason | Comments | + + + | Appointment | Patient canceled [facility] | + + + Encounter Details +--------+ + + + + | Date | Type | Department | Care Team | Description | +--------+ + + + + | 11/09/ | Telephone | [facility] | Pola Benoit MD | Appointment (Patient | | 2018 | | GASTROENTEROLOGY | [address] [place] | canceled [facility]) | | | | [address] [place] | [address] [place], [place] | | | | | [address] [place], [place] | [address] | | | | | [address] | | | | | | [phone] | | | +--------+ + + + [...] as of this encounter Plan of Treatment Not on fileas of this encounter Visit Diagnoses Not on filein this encounter"
--- OUTSIDE RECORDS SUMMARY | ~2018-02-06 | XMS | Encounter Summary ---
Demographics + + + | Address | [address] | | | [place] [address] | + + + | Home Phone | | + + + | Preferred Language | Unknown | + + + | Marital Status | | + + + | Buddhism Affiliation | 1073 | + + + | Race | Unknown | + + + | Ethnic Group | Unknown | + + + Author + + + | Author | [facility] | + + + | Organization | [facility] | + + + | Address | Unknown | + + + | Phone | Unavailable | + + + Support + + + + + | Name | Relationship | Address | Phone | + + + + + | Hardy Whitlock | KARINE | [place] | | | "In-Law" | | [address] | | + + + + + | Abhishek Whitlock | ECON | [place] | | | | | [address] | | + + + + + | Iris Whitlock | ECON | [place] | | | | | [address] | | + + + + + Care Team Providers + +------+ + | Care Test Manager Name | Role | Phone | [...] | (Primary Dx); | | | | [facility] [address] | [place] [address] | 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 Chest x-ray 6 2016: ([facility]). Report only: normal pulmonary vasculature. N o pleural effusion. No edema or consolidation. Parenchymal scarring to the left lateral lo wer chest. Enlarged cardiomediastinal silhouette. Chest x-ray: 2016: ([facility]). Interstitial thickening lower lungs bilateral ly, [...] Hct 36.9, Plt 176, Mg 1.9 10/01/2017: ([facility]): CMP: Sodium 127, potassium 3.8, chloride 95, BUN 50, creat inine 1. 0.7, GFR 31, glucose 214, calcium 9.3, total bilirubin 0.6, AST 23, ALT 11, alk dickson s 65, troponin T 0.041. Albumin 3.5. CBC: WBC 9.4, RBC 2.25, hemoglobin 6.8, hematocrit 19 .5, platelets 244 Labs: 2016: ([facility]): CBC: WBC 9.8, hemoglobin 10.6, hematocrit [...] past surgical history. Problem list. [facility] 11/20/2017in this encounter Plan of Treatment +--------+---------+ + + + | Date | Type | Specialty | Care Team | Description | +--------+---------+ + + + | 03/22/ | Office | Cardiology | Kristina Soria | | | 2017 | Visit | | [facility] [address] | | | | | | [address] | | | | | | [place] [address] | | | | | | [phone] | | | | | | | [...]
--- OUTSIDE RECORDS SUMMARY | ~2018-02-06 | XMS | Encounter Summary ---
Demographics + + + | Address | [address] | | | [place] [address] | + + + | Home Phone | | + + + | Preferred Language | Unknown | + + + | Marital Status | | + + + | Catholic Affiliation | 1073 | + + + | Race | Unknown | + + + | Ethnic Group | Unknown | + + + Author + + + | Author | [facility] | + + + | Organization | [facility] | + + + | Address | Unknown | + + + | Phone | Unavailable | + + + Support + + + + + | Name | Relationship | Address | Phone | + + + + + | Hardy Whitlock | KARINE | [place] | | | "[place]Law" | | [address] | | + + + + + | Abhishek Whitlock | ECON | [place] | | | | | [address] | | + + + + + | Iris Whitlock | ECON | [place] | | | | | [address] | | + + + + + Care Team Providers + +------+ + | Care Pediatric Physical Therapist Name | Role | Phone | + [...] | | | | | | [facility] [address] | | | | | | [place] [address] | | | | | | [phone] | | | +--------+ + + + [...] Jacobs | | | | | | [place] [address] | | | | | | [phone] | | | | | | | | +--------+---------+ + + + as of this encounter Visit Diagnoses Not on filein this encounter
--- OUTSIDE RECORDS SUMMARY | ~2018-02-06 | XMS | Encounter Summary ---
Demographics + + + | Address | [address] | | | [place] [address] | + + + | Home Phone | | + + + | Preferred Language | Unknown | + + + | Marital Status | | + + + | Mandaen Affiliation | 1073 | + + + | Race | Unknown | + + + | Ethnic Group | Unknown | + + + Author + + + | Author | [facility] | + + + | Organization | [facility] | + + + | Address | Unknown | + + + | Phone | Unavailable | + + + Support + + + + + | Name | Relationship | Address | Phone | + + + + + | Hardy Whitlock | KARINE | [place] | | | "[place]" | | [phone] | | + + + + + | Abhishek Whitlock | ECON | [place] | | | | | [address] | | + + + + + | Iris Whitlock | ECON | [place] | | | | | [address] | | + + + + + Care Team Providers + +------+ + | Care Resident Surgeon Name | Role | Phone | + +------+ + | Sebastian Chua DO | PCP | | + +------+ + Encounter Details +--------+ + + + + | Date | Type | Department | Care Team | Description | +--------+ + + + + | 01/15/ | Orders Only | [facility] | Serenity Quesada CMA | CKD (chronic kidney | | 2017 | | [place] [address] | | disease) stage 3, | | | | Sergio Carrasco | | GFR 30-59 ml/min | | | | [address] [place], [place] | | (Primary Dx); | | | | [address] | | Hyperuricemia; | | | | | | 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 | | | | | | (HCC); Essential | | | | | | hypertension, benign | +--------+ + + + + Social [...] Jacobs | | | | | | [place] [address] | | | | | | [phone] | | | | | | | | +--------+---------+ + + + + +--------+ + + | Name | Priori | Associated Diagnoses | Order Schedule | | | ty | | | + +--------+ + + | Renal function panel | Routin | CKD (chronic | Expected: | | | e | kidney disease) | 07/18/2018, Expires: | | | | stage 3, GFR 30-59 | 01/15/2019 | | | | ml/min | | | | | Hyperuricemia | | | | | Secondary | | | | | hyperparathyroidism | | | | | ([facility]) Essential | | | | | hypertension, benign | | + +--------+ + + | CBC W/Auto Diff (Reflex to | Routin | CKD (chronic | Expected: | | Manual) | e | kidney disease) | 07/18/2018, Expires: | | | | stage 3, GFR 30-59 | 01/15/2019 | | | | ml/min | | | | | Hyperuricemia | | | | | Secondary | | | | | hyperparathyroidism | | | | | ([facility]) Essential | | | | | hypertension, benign | | + +--------+ + + | PTH intact no calcium | Routin | CKD (chronic | Expected: | | | e | kidney disease) | 07/18/2018, Expires: | | | | stage 3, GFR 30-59 | 01/15/2019 | | | | ml/min | | | | | Hyperuricemia | | | | | Secondary | | | | | hyperparathyroidism | | | | | ([facility]) Essential | | | | | hypertension, benign | | + +--------+ + + | Uric acid | Routin | CKD (chronic | Expected: | | | e | kidney disease) | 07/18/2018, Expires: | | | | stage 3, GFR 30-59 | 01/15/2019 | | | | ml/min | | | | | Hyperuricemia | | | | | Secondary | | | | | hyperparathyroidism | | | | | ([facility]) Essential | | | | | hypertension, benign | | + +--------+ + + | Urinalysis (reflex to micro) | Routin | CKD (chronic | Expected: | | | e | kidney disease) | 07/18/2018, Expires: | | | | stage 3, GFR 30-59 | 01/15/2019 | | | | ml/min | | | | | Hyperuricemia | | | | | Secondary | | | | | hyperparathyroidism | | | | | ([facility]) Essential | | | | | hypertension, benign | | + +--------+ + + | Protein / creatinine ratio, urine | Routin | CKD (chronic | Expected: | | | e | kidney disease) | 07/18/2018, Expires: | | | | stage 3, GFR 30-59 | 01/15/2019 | | | | ml/min | | | | | Hyperuricemia | | | | | Secondary | | | | | hyperparathyroidism | | | | | (HCC) Essential | | | | | hypertension, benign | | + +--------+ + + as of this encounter Visit Diagnoses + + | Diagnosis | + + | CKD (chronic kidney disease) stage 3, GFR 30-59 ml/min - Primary | + + | Chronic kidney disease, Stage III (moderate) | + + | Hyperuricemia | + + | Other abnormal blood chemistry | + + | Secondary hyperparathyroidism (HCC) | + + | Secondary hyperparathyroidism (of renal origin) | + + | Essential hypertension, benign | + +
--- OUTSIDE RECORDS SUMMARY | ~2018-02-06 | XMS | Encounter Summary ---
Demographics + + + | Address | [address] | | | [place] [address] | + + + | Home Phone | | + + + | Preferred Language | Unknown | + + + | Marital Status | | + + + | Worship Affiliation | 1073 | + + + | Race | Unknown | + + + | Ethnic Group | Unknown | + + + Author + + + | Author | [facility] | + + + | Organization | [facility] | + + + | Address | Unknown | + + + | Phone | Unavailable | + + + Support + + + + + | Name | Relationship | Address | Phone | + + + + + | Hardy Whitlock | KARINE | [place] | | | "In[place]Law" | | [address] | | + + + + + | Abhishek Whitlock | ECON | [place] | | | | | [address] | | + + + + + | Iris Whitlock | ECON | [place] | | | | | [address] | | + + + + + Care Team Providers + +------+ + | Care Internal Security Manager Name | Role | Phone | [...] 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[place], [place]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 without | | | | [phone] | | gangrene, without | | | | | | long-term current | | | | | | use of insulin | | | | | | ([facility]); CKD (chronic | | | | | | kidney disease) | | | | | | stage 3, GFR 30-59 | | | | | | ml/min; | | | | | | Microalbuminuria; | | | | | | Hyperuricemia; | | | | | | 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 | | | | | | ([facility]); | | | | | | Hypothyroidism, [...] [address] | | | | | | [place] [address] | | | | | | [phone] | | | | | | | [...] + | Blood | [facility] [address] | | | [address] | + + + Protein / creatinine [...] Urine - Urine, | [facility] [address] [facility] [address] [place], [place] | | Unspecified Source | [id number] | + + + Renal function panel [...] + + | Blood | [facility] [address] [place] [address] [place] | | | [address] | + + + CBC W/Auto Diff [...] | + + + | Blood | [facility] [address] [place] | | | [address] | + + + PTH intact no calcium (01/11/2018 7:43 AM) + +-------+ + | Component | Value | Ref Range | + +-------+ + | PTH INTACT NO | 60.51 | 15 - 65 pg/mL | | CALCIUM | | | + +-------+ + + + + | Specimen | Performing Laboratory | + + + | Blood | [facility] [address] [place] [address] | | | [address] | + + + in this encounter [...]
--- OUTSIDE RECORDS SUMMARY | ~2018-02-06 | XMS | Clinical Summary ---
Demographics + + + | Address | [address] | | | [address] | | | [place] [address] | + + + | Home Phone | | + + + | Preferred Language | Unknown | + + + | Marital Status | Single | + + + | Scientology Affiliation | NRP | + + + [...] [place] | | | | | [address] | | + + + + + | BHUPINDER NIXON | ECON | [place] [address], | | | | | [place] [address] | | + + + + + Care Team Providers + +------+ + | Care Gis Database Administrator Name | Role | Phone | + +------+ + PP | Unavailable | + +------+ + Source Comments TANIKA is fully live on both [facility] and [facility] Allergies No Known Allergies Current Medications + [...]
--- OUTSIDE RECORDS SUMMARY | ~2018-02-06 | XMS | Encounter Summary ---
Demographics + + + | Address | [address] | | | [place] [address] | + + + | Home Phone | | + + + | Preferred Language | Unknown | + + + | Marital Status | Unknown | + + + | Druze Affiliation | Unknown | + + + | Race | Unknown | + + + | Ethnic Group | Unknown | + + + Author + + + | Author | [facility] | | | and [place] | + + + | Organization | [facility] | | | and [place] | + + + | Address | Unknown | + + + | Phone | Unavailable | + + + Care Team Providers + +------+ + | Care Microbiology Lab Manager Name | Role | Phone | [...] 2018 | | GASTROENTEROLOGY | [address] [place] | canceled [employer]) | | | | [address] [place] | [address] [place], [place] | | | | | [address] [place], [place] | [address] | | | | | [address] | | | | | | [phone] | | | +--------+ + + + [...]
--- OUTSIDE RECORDS SUMMARY | ~2018-02-06 | XMS | Clinical Summary ---
Demographics + + + | Address | [address] | | | [place] [address] | + + + | Home Phone | | + + + | Preferred Language | Unknown | + + + | Marital Status | | + + + | Taoism Affiliation | 1073 | + + + | Race | Unknown | + + + | Ethnic Group | Unknown | + + + Author + + + | Author | [facility] | + + + | Organization | [facility] [facility] | + + + | Address | Unknown | + + + | Phone | Unavailable | + + + Support + + + + + | Name | Relationship | Address | Phone | + + + + + | Hardy Nixon | KARINE | [place] | | | "In-Law" | | [address] | | + + + + + | Abhishek Nixon | ECON | [place] | | | | | [address] | | + + + + + | Iris Nixon | ECON | [place] | | | | | [address] | | + + + + + Care Team Providers + +------+ + | Care Plastic Cablemaking Machine Operator Name | Role | Phone | + +------+ + | Sebastian Chua DO | PP | | + +------+ + Allergies No Known Allergies Current Medications + + +---------+---------+------+------+-------+ | Prescription | Sig. | Disp. | Refills | Star | End | Statu | | | | | | t | Date | s | | | | | | Date | | | + + +---------+---------+------+------+-------+ | Cholecalciferol | Take 1 tablet by | | | | | Activ | | (VITAMIN D3) 2000 | mouth daily. | | | | | e | | UNITS TABS | | | | | | | + + +---------+---------+------+------+-------+ | glimepiride | Take 4 mg by mouth | | | | | Activ | | (AMARYL) 4 MG tablet | every morning before | | | | | e | | | breakfast. | | | | | | + + +---------+---------+------+------+-------+ | lisinopril | Take 10 mg by mouth | | | | | Activ | | (ZESTRIL) 20 MG | daily. | | | | | e | | tablet | | | | | | | + + +---------+---------+------+------+-------+ | potassium chloride | Take 10 mEq by mouth | | | | | Activ | | (K-DUR) 10 MEQ | 2 (two) times | | | | | e | | tablet | daily. | | | | | | + + +---------+---------+------+------+-------+ | levothyroxine | Take 125 mcg by | | | | | Activ | | (SYNTHROID) 125 MCG | mouth every morning | | | | | e | | tablet | before breakfast. | | | | | | + + +---------+---------+------+------+-------+ | triamcinolone | Apply topically 2 | | | | | Activ | | (KENALOG) 0.1 % | (two) times daily. | | | | | e | | cream | | | | | | | + + +---------+---------+------+------+-------+ | atorvastatin | Take 80 mg by mouth | | | | | Activ | | (LIPITOR) 80 MG | nightly. | | | | | e | | tablet | | | | | | | + + +---------+---------+------+------+-------+ | mirtazapine | Take 15 mg by mouth | | | | | Activ | | (REMERON) 15 MG | nightly. | | | | | e | | tablet | | | | | | | + + +---------+---------+------+------+-------+ | Magnesium 400 MG | Take 1 tablet by | 5 | 0 | 04/2 | | Activ | | CAPS | mouth daily. | capsule | | 7/20 | | e | | | | | | 17 | | | + + +---------+---------+------+------+-------+ | folic acid (EQL | Take 400 mcg by | | | | | Activ | | FOLIC ACID) 400 MCG | mouth daily. | | | | | e | | tablet | | | | | | | + + +---------+---------+------+------+-------+ | ferrous sulfate, | Take 65 mg of iron | | | | | Activ | | 65 FE, 324 (65 Fe) | by mouth daily with | | | | | e | | MG EC | breakfast. | | | | | | | tabletIndications: | | | | | | | | Iron Deficiency | | | | | | | | Anemia | | | | | | | + + +---------+---------+------+------+-------+ | nitroGLYCERIN | Place 0.4 mg under | | | | | Activ | | (NITROSTAT) 0.4 MG | the tongue every 5 | | | | | e | | SL tablet | (five) minutes as | | | | | | | | needed for Chest | | | | | | | | pain. | | | | | | + + +---------+---------+------+------+-------+ | torsemide | Take 1 tablet by | 30 | 11 | 08/0 | 08/0 | Activ | | (DEMADEX) 20 MG | mouth daily. | tablet | | /20 | 1/20 | e | | tablet | | | | 17 | 18 | | + + +---------+---------+------+------+-------+ | isosorbide | Take 1 tablet by | 90 | 11 | 10/1 | 10/1 | Activ | | dinitrate (ISORDIL) | mouth 3 (three) | tablet | | 07/19 | 07/19 | e | | 20 MG | times daily. | | | 17 | 18 | | | tabletIndications: | | | | | | | | Non-ST elevation | | | | | | | | (NSTEMI) myocardial | | | | | | | | infarction (HCC), | | | | | | | | Persistent atrial | | | | | | | | fibrillation (HCC) | | | | | | | + + +---------+---------+------+------+-------+ | metoprolol | Take 50 mg by mouth | | | | | Activ | | (TOPROL-XL) 50 MG 24 | 2 (two) times daily. | | | | | e | | hr tablet | | | | | | | + + +---------+---------+------+------+-------+ | B Complex Vitamins | Take 1 tablet by | | | | | Activ | | (B COMPLEX 1 PO) | mouth. | | | | | e | + + +---------+---------+------+------+-------+ | gabapentin | Take 300 mg by mouth | | | 12/28 | | Activ | | (NEURONTIN) 100 MG | nightly. | | | 12/19 | | e | | capsule | | | | 18 | | | + + +---------+---------+------+------+-------+ Active Problems + + + | Problem | Noted Date | + + + | Essential hypertension, benign | 01/15/2018 | + + + | Secondary hyperparathyroidism (HCC) | 10/09/2017 | + + + | Bilateral edema of lower extremity | 10/09/2017 | + + + | Microalbuminuria | 08/21/2017 | + + + | Idiopathic chronic gout of right foot without tophus | 08/21/2017 | + + + | Hyperuricemia | 08/21/2017 | + + + | NSTEMI (non-ST elevated myocardial infarction) | 02/22/2017 | + + + | Unstable angina | 02/21/2017 | + + + | Iron deficiency anemia | 10/01/2012 | + + + | H. pylori infection | 09/29/2012 | + + + | Hypothyroidism | 09/29/2012 | + + + | Diverticula of colon | 09/29/2012 | + + + | Atrial fibrillation (HCC) | 09/29/2012 | + + + | Thrombus | 09/28/2012 | + + + | AMI (acute mesenteric ischemia) | 09/28/2012 | + + + | Diabetes mellitus (HCC) | 09/28/2012 | + + + | GIB (gastrointestinal bleeding) | 09/28/2012 | + + + | CKD (chronic kidney disease) stage 3, GFR 30-59 ml/min | 09/28/2012 | + + + Encounters +--------+ + + + + | Date | Type | Specialty | Care Team | Description | +--------+ + + + + | 01/18/ | Documentati | | Serenity Quesada CMA | Other (Blood | | 2018 | on Only | | | Pressure log dated | | | | | | 11/27/2017-01/16/2018) | +--------+ + + + + | 01/15/ | Office | | Chiki Sanchez MD | CKD (chronic kidney | | 2018 | Visit | | | disease) stage 3, | | | | | | GFR 30-59 ml/min | | | | | | (Primary Dx); | | | | | | Bilateral edema of | | | | | | lower extremity; | | | | | | Microalbuminuria; | | | | | | Essential | | | | | | hypertension, benign | +--------+ + + + + | 01/15/ | Orders Only | | Serenity Quesada CMA | CKD (chronic kidney | | 2018 | | | | disease) stage 3, | | | | | | GFR 30-59 ml/min | | | | | | (Primary Dx); | | | | | | Hyperuricemia; | | | | | | 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 | | | | | | ([facility]); Essential | | | | | | hypertension, benign | +--------+ + + + + | 01/12/ | Documentati | | Serenity Quesada CMA | Labs Only ([facility] | | 2018 | on Only | | | Labs dated | | | | | | 01/11/2018) | +--------+ + + + + | 01/12/ | Orders Only | | Serenity Quesada CMA | 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 Toma parsons | | | | | | note) | +--------+ + + + + | 11/20/ | Documentati | | Mine Watters MA | Other ([place] | | 2017 | on Only | | | ER 10/27/2017 notes) | +--------+ + + + + | 11/20/ | Documentati | | Mine Watters MA | Other (10/01/2017: | | 2017 | on Only | | | [facility] | | | | | | Consultation) | +--------+ + + + + | 11/14/ | Documentati | | Mine Watters MA | Labs Only | | 2017 | on Only | | | (10/27/2017: | | | | | | [facility]) | +--------+ + + + + from Last 3 Months Immunizations + + + + | Name | Dates Previously Given | Next Due | + + + + | Pneumococcal | 10/01/2012 | | | Polysaccharide | | | | 23-valent | | | + + + + Family History + + +------+ + | Medical History | Relation | Name | Comments | + + +------+ + | Heart disease | Father | | | + + +------+ + | Heart disease | Mother | | | + + +------+ + | Stroke | Mother | | | + + +------+ + + +------+ + + | Relation | Name | Status | Comments | + +------+ + + | Father | | | | + +------+ + + | Mother | | | | + +------+ + + Social History + +-------+ +--------+------+ [...] + + + | Respiratory Rate | 16 | 02/23/2017 8:12 AM PDT | + + + + [...] PM PDT | + + + + Plan of Treatment +--------+---------+ + + + | Date | Type | Specialty | Care Team | Description | +--------+---------+ + + + | 03/22/ | Office | | Kristina Soria | | | 2017 | Visit | | [facility] [address] | | | | | | [address] | | | | | | [place] [address] | | | | | | [phone] | | | | | | | | +--------+---------+ + + + + + + + + | Health Maintenance | Due Date | Last Done | Comments | + + + + + | Diabetic Eye Exam | | | | | | 8 | | | + + + + + | Diabetic Foot Exam | | | | | | 8 | | | + + + + + | Microalbumin | | | | | Screening | 8 | | | + + + + + | Vaccine: | | | | | Dtap/Tdap/Td (1 - | 7 | | | | Tdap) | | | | + + + + + | Vaccine: Zoster (#1) | | | | | | 8 | | | + + + + + | DEXA SCAN SCREENING | | | | | | 3 | | | + + + + + | Vaccine: | | 10/01/2012 | | | Pneumococcal 65+ | 3 | | | | Low/Medium Risk (2 | | | | | of 2 - PCV13) | | | | + + + + + | Hemoglobin A1c | | 02/22/2017 | | | | 7 | | | + + + + + | Vaccine: Influenza | | | | | (Season Ended) | 8 | | | + + + + + Implants + +------+------+ +--------+--------+--------+ | Implanted | Type | Area | Manufacture | Device | Expira | Model | | | | | r | | tion | / | | | | | | Identi | Date | Serial | | | | | | fier | | / Lot | + +------+------+ +--------+--------+--------+ | Catheter Embolectomy Arterial | | | FERRARI | | | [id number] | | Angelita 4fr 80cm Length - | | | LIFE | | | F | | [id number]: Qty: 1 on | | | SCIENCE | | | /[id number] | | 10/01/2012 | | | | | | 4F / | + +------+------+ +--------+--------+--------+ | Catheter Embolectomy Arterial | | | FERRARI | | | [id number] | | Angelita 3fr 80cm Length - | | | LIFE | | | F | | [id number]: Qty: 1 on | | | SCIENCE | | | /[id number] | | 10/01/2012 | | | | | | 3F / | + +------+------+ +--------+--------+--------+ Results Protein / creatinine ratio, urine (01/11/2018 7:43 AM) + + + + | Component | Value | Ref Range | + + + + | UR | 243.9 (A) | 0 - 150 | | PROTEIN/CREATININE | | | + + + + + + + | Specimen | Performing Laboratory | + + + | Urine - Urine, | [facility] [address] [place] [address] [address] [place], [place] | | Unspecified Source | [address] | + + + CBC W/Auto Diff [...] + | Blood | [facility] [address], [address] [place], [place] | | | [address] | + + + Uric acid (01/11/2018 7:43 AM) + +---------+ + | Component | Value | Ref Range | + +---------+ + | URIC ACID | 6.9 (A) | 2.3 - 6.6 | + +---------+ + + + + | Specimen | Performing Laboratory | + + + | Blood | [facility] [address], [address] [place], [place] | | | [address] | + + + PTH intact no calcium (01/11/2018 7:43 AM) + +-------+ + | Component | Value | Ref Range | + +-------+ + | PTH INTACT NO | 60.51 | 15 - 65 pg/mL | | CALCIUM | | | + +-------+ + + + + | Specimen | Performing Laboratory | + + + | Blood | [facility] [address] [place] [address] | | | [address] | + + + Renal function panel [...] + + | Blood | [facility] [address] [place] [address] [address] [place], [place] | | | [address] | + + + from Last 3 Months Insurance + +--------+ +------+-------+ + | Payer | Benefi | Subscriber | Type | Phone | Address | | | t Plan | ID | | | | | | / | | | | | | | Group | | | | | + +--------+ +------+-------+ + | MEDICARE | MEDICA | xxxxxxxxxx | | | [address] | | | RE | | | | [place] [id number] | | | IP-OP | | | | | + +--------+ +------+-------+ + | MEDICAID | MEDICA | xxxxxxxx | | | [address] | | | ID | | | | [place] | | | [place] | | | | [phone] | + +--------+ +------+-------+ + + +--------+ +--------+ + + | Guarantor Name | Accoun | Relation to | Date | Phone | Billing Address | | | t Type | Patient | of | | | | | | | | | | + +--------+ +--------+ + + | ROSA NIXON | Person | Self [birth year] Home: | [address] | | | [place] | | [phone] | [phone] | [place] | | | [place] | | | [phone] | [phone] | + +--------+ +--------+ + +
--- OUTSIDE RECORDS SUMMARY | ~2018-02-06 | XMS ---
Demographics + + + | Address | [address] | | | [address] | | | [place] [address] | + + + | Preferred Language | Unknown | + + + | Marital Status | Unknown | + + + | Orthodox Affiliation | Unknown | + + + | Race | Unknown | + + + | Ethnic Group | Unknown | + + + Author + + + | Author | [facility] | + + + | Organization | [facility] | + + + | Address | 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 | | Active | 544491635 | | | hyperlipid | | | | | | | | emia | | | | | | +---------+ + + +--------+ + + | Problem | Iron | D50.0 | | | Active | 288830554 | | | deficiency | | | [...] | E11.65 | | | Active | 5624817460 | | | diabetes | | | | | [address] | | | mellitus | | | | | | | | with | | | | | | | | hyperglyce | | | | | | | | carmen | | | | | | +---------+ + + +--------+ + + | Problem | Murmur | 785.2 | | | Active | 643219325 | +---------+ + + +--------+ + + | Problem | CKD | N18.3 | | | Active | 145059768 | | | (chronic | | | | | | | | kidney | | | | | | | | disease), | | | | | | | | stage III | | | | | | +---------+ + + +--------+ + + | Problem | Dysthymia | F34.1 | | | Active | 96090170 | +---------+ + + +--------+ + + | Problem | 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.9 | | | Active | 828200995 | | | hypothyroi | | | | | | | | dism | | | | | | +---------+ + + +--------+ + + | Problem | Angina at | | I20.8 | | Active | 48001169 | | | rest | | | | | | +---------+ + + +--------+ + + | Problem | 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 | | Active | 31272282 | | | (arteriosc | | | | | | | | lerotic | | | | | | | | heart | | | | | | | | disease) | | | | | | +---------+ + + +--------+ + + | Problem | Chronic | | I48.2 | | Active | 221649137 | | | atrial | | | | | | | | fibrillati | | | | | | | | on | | | | | | +---------+ + + +--------+ + + | Problem | Chronic | | Z79.01 | | Active | 510617599 | | | anticoagul | | | | | | | | ation | | | | | | +---------+ + + +--------+ + + | 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
--- OUTSIDE RECORDS SUMMARY | ~2018-02-06 | XMS | Clinical Summary ---
Demographics + + + | Address | [address] | | | [place] [address] | + + + | Home Phone | | + + + | Preferred Language | Unknown | + + + | Marital Status | | + + + | Voodoo Affiliation | 1073 | + + + | Race | Unknown | + + + | Ethnic Group | Unknown | + + + Author + + + | Author | [facility] | + + + | Organization | [facility] [employer] [facility] | + + + | Address | Unknown | + + + | Phone | Unavailable | + + + Support + + + + + | Name | Relationship | Address | Phone | + + + + + | Hardy Nixon | KARINE | [place] | | | "[place]" | | [address] | | + + + + + | Abhishek Nixon | ECON | [place] | | | | | [address] | | + + + + + | Iris Nixon | ECON | [place] | | | | | [address] | | + + + + + Care Team Providers + +------+ + | Care Director Of Capital Giving Name | Role | Phone | + [...] hyperparathyroidism | | | | | | ([facility]); Essential | | | | | | [...] insulin | | | | | | ([facility]); CKD (chronic | | | | | | kidney disease) | | | | | | stage 3, GFR 30-59 | | | | | | ml/min; | | | | | | Microalbuminuria; | | | | | | Hyperuricemia; | | | | | | 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 | | | | | | ([facility]); | | | | | [...] | | Mine Watters MA | Other ([place] | | 2017 | on Only | [...] [address] | | | | | | [place] [address] | | | | | | [phone] | | | | | | | [...] | | | F[facility]I | | | [id number] | | Angelita 4fr 80cm Length - | | | LIFE | | | F | | [id number]: Qty: 1 on | | | SCIENCE | | | /[id number] | | 10/01/2012 | | | | | | 4F / | + +------+------+ +--------+--------+--------+ | Catheter Embolectomy Arterial | | | FERRARI | | | [id number] | | Angelita 3fr 80cm Length - | | | LIFE | | | F | | [id number]: Qty: 1 on | | | SCIENCE | | | /[id number] | | 10/01/2012 | | | | [...] | Urine - Urine, | [facility] [address] [place] [address] [address] [place], [place] | | Unspecified Source | [address] | + + + CBC W/Auto Diff [...] + | Blood | [facility] [address], [address] [place], [place] | | | [address] | + + + Uric acid (01/11/2018 7:43 AM) + +---------+ + | Component | Value | Ref Range | + +---------+ + | URIC ACID | 6.9 (A) | 2.3 - 6.6 | + +---------+ + + + + | Specimen | Performing Laboratory | + + + | Blood | [facility] [address], [address] [place], [place] | | | [address] | + + + PTH intact no calcium (01/11/2018 7:43 AM) + +-------+ + | Component | Value | Ref Range | + +-------+ + | PTH INTACT NO | 60.51 | 15 - 65 pg/mL | | CALCIUM | | | + +-------+ + + + + | Specimen | Performing Laboratory | + + + | Blood | [facility] [address] [place] [address] | | | [address] | + + + Renal function panel [...] + + | Blood | [facility] [address] [place] [address] [address] [place], [place] | | | [address] | + + + from Last 3 [...] RE | | | | [place] [address] | | | IP-OP | | | | | + +--------+ +------+-------+ + | MEDICAID | MEDICA | xxxxxxxx | | | [address] | | | ID | | | | [place] | | | [place] | | | | [address] | + +--------+ +------+-------+ + + +--------+ [...] | [place] | | | [phone] | [address] | + +--------+ +--------+ + +
--- OUTSIDE RECORDS SUMMARY | ~2018-02-06 | XMS | Encounter Summary ---
Demographics + + + | Address | [address] | | | [place] [address] | + + + | Home Phone | | + + + | Preferred Language | Unknown | + + + | Marital Status | | + + + | Christian Affiliation | 1073 | + + + | Race | Unknown | + + + | Ethnic Group | Unknown | + + + Author + + + | Author | [facility] | + + + | Organization | [facility] [employer] [facility] | + + + | Address | Unknown | + + + | Phone | Unavailable | + + + Support + + + + + | Name | Relationship | Address | Phone | + + + + + | Hardy Whitlock | KARINE | [place] | | | "[place]" | | [address] | | + + + + + | Abhishek Whitlock | ECON | [place] | | | | | [address] | | + + + + + | Iris Whitlock | ECON | [place] | | | | | [address] | | + + + + + Care Team Providers + +------+ + | Care Allied Health Teacher Name | Role | Phone | + [...] (chronic kidney | | 2017 | | [facility] [address] | | disease) stage 3, | | | | [address] | | GFR 30-59 ml/min | | | | [address] [place], [place] | | (Primary Dx); | | | | [address] | | Hyperuricemia; | | | | [...] [address] | | | | | | [place] [address] | | | | | | [phone] | | | | | | | [...] | hyperparathyroidism | | | | | ([facility]) Essential | | | | | hypertension, [...] | hyperparathyroidism | | | | | ([facility]) Essential | | | | | hypertension, [...] | hyperparathyroidism | | | | | ([facility]) Essential | | | | | hypertension, [...] | hyperparathyroidism | | | | | ([facility]) Essential | | | | | hypertension, [...] | hyperparathyroidism | | | | | ([facility]) Essential | | | | | hypertension, [...]
--- OUTSIDE RECORDS SUMMARY | ~2018-02-06 | XMS | Encounter Summary ---
Demographics + + + | Address | [address] | | | [place] [address] | + + + | Home Phone | | + + + | Preferred Language | Unknown | + + + | Marital Status | | + + + | Religion Affiliation | 1073 | + + + | Race | Unknown | + + + | Ethnic Group | Unknown | + + + Author + + + | Author | [facility] | + + + | Organization | [facility] [employer] [facility] | + + + | Address | Unknown | + + + | Phone | Unavailable | + + + Support + + + + + | Name | Relationship | Address | Phone | + + + + + | Hardy Whitlock | KARINE | [place] | | | "[place]" | | [address] | | + + + + + | Abhishek Whitlock | ECON | [place] | | | | | [address] | | + + + + + | Iris Whitlock | ECON | [place] | | | | | [address] | | + + + + + Care Team Providers + +------+ + | Care Director Of Distance Learning Name | Role | Phone | + [...] | 2018 | on Only | [facility] [place] | | [facility] | | | | [address] | | Consultation) | | | | [facility] [address] | | | | | | [place] [address] | | | | | | [phone] | | | +--------+ + + + [...] [address] | | | | | | [place] [address] | | | | | | [phone] | | | | | | | | +--------+---------+ + + + as of this encounter Visit Diagnoses Not on filein this encounter
--- OUTSIDE RECORDS SUMMARY | ~2018-02-06 | XMS | Clinical Summary ---
Demographics + + + | Address | [address] | | | [place] [address] | + + + | Home Phone | | + + + | Preferred Language | Unknown | + + + | Marital Status | Unknown | + + + | Spiritism Affiliation | Unknown | + + + | Race | Unknown | + + + | Ethnic Group | Unknown | + + + Author + + + | Author | [facility] | | | and [place] | + + + | Organization | [facility] | | | and [place] | + + + | Address | Unknown | + + + | Phone | Unavailable | + + + Care Team Providers + +------+ + | Care Fruit And Vegetable Packer Name | Role | Phone | + [...] | | | [phone] | [place] [address] | + +--------+ +--------+ + +"
[2018-02-06] MEDS ORDERED: GABAPENTIN100 MG PO (11:29)
[2018-02-06] MEDS ORDERED: METHYLPREDNISOLO4 M1 PO (11:46)
[2018-02-06] MEDS ORDERED: NORCO 5-325 TA1 EACH PO (11:46)
== END 2018-02-06 11:53 | disposition home or self-care (01) ==
LOC: ED 10:40
DX: M15.9 Polyosteoarthritis, unspecified (principal); I10 Essential (primary) hypertension; E11.49 Type 2 diabetes mellitus with other diabetic neurological complication; E03.9 Hypothyroidism, unspecified; Z79.84 Long term (current) use of oral hypoglycemic drugs; Z79.899 Other long term (current) drug therapy
CPT/HCPCS: 99283